=== PATIENT | female | born 1945 | race Caucasian/White ===

== ENCOUNTER 2017-03-17 12:09 | Outpatient (CLI) | payer MEDICARE ==
[2017-03-17 13:21] LABS: Hematocrit 39.6 % (36.0-47.0); Mean Platelet Volume 6.8 fL (7.4-10.4); Red Blood Cell (RBC) Count 4.12 mill/uL (4.20-5.40); White Blood Cell (WBC) Count 5.7 thou/uL (4.8-10.8)
[2017-03-17 13:44] LABS: Anion Gap 10 mmol/L (10-20); BUN (Urea Nitrogen) 29 mg/dL (9.8-20.1); Calc. Creatinine Clearance 0 mL/min (70-130); Calcium 9.2 mg/dL (7.8-10.44); Carbon Dioxide 29 mmol/L (23-31); Chloride 107 mmol/L (98-107); Estimated GFR-MDRD 70
== END 2017-03-17 12:10 | disposition home or self-care (01) ==
LOC: LABBT 12:09
PROVIDERS: ATTEND Orthopaedic Surgery
DX: Z01.818 Encounter for other preprocedural examination (principal); S62.101A Fracture of unspecified carpal bone, right wrist, initial encounter for closed fracture
CPT/HCPCS: 80048; 85027

== ENCOUNTER 2017-03-21 06:13 | Day surgery (SDC) | payer MEDICARE ==
--- NOTE | 2017-03-17 15:43 | HP ---
DATE OF ADMISSION: 03/21/2017 HISTORY OF PRESENT ILLNESS: The patient is a 71-year-old right hand dominant female who fell at [place] on 03/16/2017 injuring her right distal radius. She was evaluated in the emergency room and referred to my office. She was found to have a displaced intra-articular fracture of distal rad ius and is admitted at this time for definitive treatment of the fracture. PAST MEDICAL HISTORY: Please see the old chart. Approximately 5 months ago, the patient underwent k nee arthroscopy and was undergoing physical therapy for this at the time of her injury. She has a hi story of hypertension, sleep apnea, and depression. CURRENT MEDICATIONS: Include aripiprazole, amlodipine, venlafaxine, fluvastatin, Toprol, aspirin, At acand, Crestor, Aciphex, Ranexa, isosorbide dinitrate, meclizine, and p.r.n. hydrocodone. PAST SURGICAL HISTORY: She has had previous laparoscopic banding, cardiac stent surgery. ALLERGIES: She has no known allergies. She lives by herself and is normally quite active. FAMILY HISTORY: Otherwise unremarkable. SOCIAL HISTORY: Otherwise unremarkable. REVIEW OF SYSTEMS: Otherwise unremarkable. PHYSICAL EXAMINATION: GENERAL: Reveals a healthy heavyset female. HEENT: Unremarkable. NECK: Supple. CHEST: Clear. HEART: Regular rate and rhythm. ABDOMEN: Soft, nontender. PELVIC/RECTAL/BREAST: Exams are deferred. EXTREMITIES: Pertinent findings related to the right wrist, there is swelling and tenderness about t he distal radius and mild deformity. SKIN: Intact. NEUROVASCULAR: Exam is intact. X-RAY FINDINGS: X-rays of the right wrist performed in [place] on the day of injury revealed di splaced impacted intraarticular fracture of the right distal radius. IMPRESSION: Displaced intra-articular fracture, right distal radius. PLAN: Open reduction internal fixation with volar locking plate. The nature of the surgery, length of recovery, and potential complications such as infection, loss of motion, incomplete relief, post-t raumatic degenerative arthritis, delayed or nonunion, possible need to remove the implants and need f or additional treatment or repeat surgery have been discussed in detail.
[2017-03-21] MEDS ORDERED: Bupivacaine 0.25% HCL 30 ML VIAL ONE (06:37)
[2017-03-21] MEDS ORDERED: Lidocaine 2% w/Epinephrine 1:200K 20 ML VIAL ONE (06:37)
[2017-03-21] MEDS ORDERED: Bupivacaine/Epinephrine 0.25% 30 ML VIAL ONE (06:38)
[2017-03-21] MEDS ORDERED: CEFAZOLIN/Water 2 GM/20 ML SYRINGE ONE (07:05)
[2017-03-21] MEDS ORDERED: Fentanyl 100 MCG/2 ML VIAL ONE ×2 (08:09→10:08)
[2017-03-21] MEDS ORDERED: Midazolam HCl 2 mg/2 ml Vial ONE ×2 (08:09→09:54)
[2017-03-21] MEDS ORDERED: Dexamethasone 4 mg/ml Vial ONE (08:10)
--- NOTE | 2017-03-21 12:14 | OP ---
DATE OF PROCEDURE: 03/21/2017 SURGEON: Jorge L Zamorano M.D. GLASS CURVATURE GAUGER: Milad Diaz PA-C. ANESTHESIA: IV sedation and supraclavicular block. PREOPERATIVE DIAGNOSIS: Displaced intraarticular fracture, right distal radius. POSTOPERATIVE DIAGNOSIS: Displaced intraarticular fracture, right distal radius. PROCEDURE: Open reduction internal fixation right distal radius with Synthes volar locking plate. NARRATIVE REPORT: After satisfactory anesthesia was induced, in the supine position, the patient was prepped and draped in the routine manner. Right arm was elevated, exsanguinated with an Esmarch ban dage, and the tourniquet inflated to 250 mmHg. A longitudinal incision was made along the volar radi al aspect of the wrist and then slightly zig-zagged over the base of the thenar eminence, carried melissa n to subcutaneous tissues. Bleeding points controlled with Bovie cautery. The sheath of the flexor carpi radialis tendon was split in line with the skin incision and the tendon retracted radially and the floor of the tendon sheath was similarly split. The pronator quadratus was detached subperiostea lly from the distal radius and the fracture exposed. Fracture was manipulated and reduction was chec ked with image intensifier and found to be satisfactory. A Synthes distal radius locking plate was t hen placed on the volar aspect over the distal radius and provisionally fixed with 2 K wires. There appeared to be satisfactory reduction of the fracture and satisfactory plate placement. Provisional fixation of the plate was done through the oblong hole in the middle of the plate with bicortical scr ews after appropriate drilling and depth gauge measurements. Four locking screws were then placed in the distal volar plate and 2 proximal cortical screws were placed in the proximal plate after approp riate drilling and depth gauge measurements. The K-wires were removed. There appeared to be good st able fracture reduction both clinically and by x-ray and C-arm and hard copies were made. The wound was thoroughly irrigated. The pronator quadratus was tacked back in position with 0 Vicryl. Subcuta neous tissues closed with interrupted 0 Vicryl and the skin closed with interrupted 3-0 nylon. A alyson rile bulky compressive dressing was applied and the tourniquet deflated after approximately 48 minute s. The hand promptly pinked up and the patient was immobilized in a volar plaster splint and sling. She was awakened, taken from the operating room in stable condition. There were no apparent intraop erative complications. ESTIMATED BLOOD LOSS: Negligible. The patient will be discharged home in satisfactory condition. Instructed on ice, elevation, and giv en written cast care instructions. She has [place] 10 at home for pain. She will be rechecked in my o ffice in 10-14 days or sooner if there are any problems prior to that time.
--- NOTE | 2017-03-21 12:38 | RAD ---
RIGHT WRIST TWO VIEW: HISTORY: ORIF. COMPARISON: 03/16/2017 FINDINGS: Spot radiographs from the operating room demonstrate satisfactory appearance post fixation of the dis corrina radius fracture. IMPRESSION: Satisfactory alignment post fixation. POS: GET
== END 2017-03-21 13:10 | disposition home or self-care (01) ==
LOC: SDC 06:13
PROVIDERS: ATTEND Orthopaedic Surgery
PROC: 0PSH04Z Reposition Right Radius with Internal Fixation Device, Open Approach (ICD-10-PCS; principal; 2017-03-21)
DX: S52.571A Other intraarticular fracture of lower end of right radius, initial encounter for closed fracture (principal); W19.XXXA Unspecified fall, initial encounter; I10 Essential (primary) hypertension; G47.30 Sleep apnea, unspecified; F32.9 Major depressive disorder, single episode, unspecified; Z79.82 Long term (current) use of aspirin; Z79.899 Other long term (current) drug therapy; Z91.018 Allergy to other foods; Z98.84 Bariatric surgery status; Z98.42 Cataract extraction status, left eye; Z98.41 Cataract extraction status, right eye; Z95.818 Presence of other cardiac implants and grafts; Z98.890 Other specified postprocedural states
CPT/HCPCS: 25608; 73100; 76001; 82962; C1713 ×2; 36416; J1100; J2250; J3010; S0020

== ENCOUNTER 2017-12-06 20:25 | Observation (INO) | payer MEDICARE ==
[2017-12-06 21:40] LABS: Troponin I Less than 0.010 ng/mL (< 0.028)
[2017-12-07] MEDS ORDERED: Isosorbide Dinitrate 20 MG TAB PO SCH (00:15)
[2017-12-07] MEDS ORDERED: Lisinopril 10 MG TAB PO SCH (00:15)
[2017-12-07] MEDS ORDERED: Rosuvastatin 10 MG TAB PO SCH (00:15)
[2017-12-07] MEDS ORDERED: Venlafaxine HCl XR 75 MG CAP PO SCH (00:15)
[2017-12-07] MEDS ORDERED: Ondansetron ODT 4 MG TAB PO PRN (00:40)
[2017-12-07] MEDS ORDERED: Nitroglycerin 0.4 MG TAB (25 Tab Bottle) PO PRN (00:40)
[2017-12-07] MEDS ORDERED: Ondansetron HCl/PF 4 MG/2 ML Vial IVP PRN (00:40)
[2017-12-07] MEDS ORDERED: Calcium Carbonate 500 MG ChewTAB PO PRN (00:40)
[2017-12-07] MEDS ORDERED: Acetaminophen 325 MG TAB PO PRN (00:40)
[2017-12-07] MEDS ORDERED: Mag-Al 1200 mg/1200 mg/30 ML UDCUP PO PRN (00:40)
[2017-12-07] MEDS ORDERED: Senokot 8.6 MG TAB PO PRN (00:40)
[2017-12-07] MEDS ORDERED: Meclizine HCl 25 MG TAB PO PRN (01:04)
--- NOTE | 2017-12-07 03:01 | HP ---
PRIMARY CARE PHYSICIAN: Parrish Mcbride M.D. PRIMARY HUMAN RESOURCES CLERK: Carolina Copeland M.D. CHIEF COMPLAINT: Chest discomfort. HISTORY OF PRESENT ILLNESS: The patient is a 72-year-old female with coronary artery disease who pre sented to the emergency room with chest discomfort that has been going on since yesterday. The chest discomfort started while she was at home resting. It was substernal, pressure-like, without any rad iation. She felt lightheaded, dizzy; however, denies any syncope. She took 2 nitroglycerin after wh ich her pain resolved. She denies any recent immobilization, travel, fever, chills, heartburn, cough , shortness of breath or wheezing. In the emergency room, initial vital signs showed temperature 97.8, respiration 18, pulse rate of 63 with a blood pressure 162/72. O2 saturation was 95% on room air. The patient was seen by Dr. Mcbride as outpatient and was referred to the emergency room for evaluation. PAST MEDICAL HISTORY: 1. Coronary artery disease. 2. Hypertension. 3. Diabetes mellitus type 2, diet controlled. 4. Family history of heart disease. 5. Dyslipidemia. 6. Obstructive sleep apnea. PAST SURGICAL HISTORY: Cardiac catheterization with stent placement. ALLERGIES: No known drug allergies. CURRENT HOME MEDICATIONS: The patient does not remember any of her home medications. Family to get accurate list of medicine in a.m. FAMILY HISTORY: Father of consequences of acute CVA around 60. 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 No alcohol, tobacco, or drug use. She currently lives at home by herself. She makes her own decision with the help of her family. She is FULL CODE. REVIEW OF SYSTEMS: The following complete review of systems was negative, unless otherwise mentioned in the HPI or below: Constitutional: Weight loss or gain, ability to conduct usual activities. Ski n: Rash, itching. Eyes: Double vision, pain. ENT/Mouth: Nose bleeding, neck stiffness, pain, tend erness. Cardiovascular: Palpitations, dyspnea on exertion, orthopnea. Respiratory: Shortness of b reath, wheezing, cough, hemoptysis, fever or night sweats. Gastrointestinal: Poor appetite, abdomin al pain, heartburn, nausea, vomiting, constipation, or diarrhea. Genitourinary: Urgency, frequency, dysuria, nocturia. Musculoskeletal: Pain, swelling. Neurologic/Psychiatric: Anxiety, depression. Allergy/Immunologic: Skin rash, bleeding tendency. PHYSICAL EXAMINATION: VITAL SIGNS: As discussed above. GENERAL: A 72-year-old female in no apparent distress, chest discomfort has resolved. HEENT: Head atraumatic, normocephalic. Sclerae are anicteric. Moist mucous membrane, no oral lesio n. NECK: Supple, no JVD, no carotid bruit. LUNGS: Clear to auscultation bilaterally, no wheezing, rales, or rhonchi. HEART: S1, S2 present. Regular rate and rhythm, no murmur, rubs, or gallops appreciated. ABDOMEN: Soft, nontender, bowel sounds present. EXTREMITIES: No edema or calf tenderness. NEUROLOGIC: Grossly nonfocal, moves all four extremities. PSYCHIATRIC: Alert, awake, oriented x3. SKIN: Warm and dry. LYMPH NODES: No palpable lymph nodes in the neck. PERIPHERAL VASCULAR: Radial pulses palpable bilaterally. MUSCULOSKELETAL: No joint swelling or tenderness. LABORATORY FINDINGS: CBC showed WBC 5.2 with hemoglobin 14.4, hematocrit 45.3, and platelet 169. Ch emistries showed sodium 143, potassium 4.7, chloride 108, bicarb 26, BUN 15, creatinine 0.89. Tropon ins were negative. BNP 84.3. Chest x-ray by my review was negative for infiltrate. EKG by my review showed T-wave inversions in a nterolateral leads with some nonspecific ST-T wave changes in the lateral leads. IMPRESSION: 1. Chest discomfort in a 72-year-old female with coronary artery disease with stent placement in the past. Chest discomfort resolved after nitroglycerin. The patient will be kept n.p.o. past midnight . Cardiology will be consulted in a.m. She will probably require either cardiac catheterization or stress test. 2. Diabetes mellitus type 2, diet controlled. 3. History of coronary artery disease, status post stent placement in the past. We will continue as pirin. We will resume home medications once confirmed. 4. Obstructive sleep apnea. We will resume home CPAP. 5. Hypertension. We will resume her home medications once confirmed. 6. Chronic kidney disease stage 2. Plan of care was discussed with the patient in detail, she stated understanding.
[2017-12-07 04:11] LABS: Troponin I Less than 0.010 ng/mL (< 0.028)
[2017-12-07 05:19] LABS: Troponin I Less than 0.010 ng/mL (< 0.028)
[2017-12-07 05:23] VITALS: BMI 46.2
[2017-12-07] MEDS ORDERED: Eucerin (Mineral Oil/Petrolatum,White) 30 gm Jar TOP PRN (07:14)
[2017-12-07] MEDS ORDERED: Diabetic Tussin 200 MG/10 ML UDCUP PO PRN (07:14)
[2017-12-07] MEDS ORDERED: Loperamide HCl 2 MG CAP PO PRN (07:14)
[2017-12-07] MEDS ORDERED: Temazepam 15 MG CAP PO PRN (07:14)
[2017-12-07] MEDS ORDERED: Loratadine 10 MG TAB PO PRN (07:14)
[2017-12-07] MEDS ORDERED: Chloraseptic Spray 180 ml Bottle PO PRN (07:14)
[2017-12-07] MEDS ORDERED: Artificial Tears 18 DROP/0.9 ML EA EYE PRN (07:14)
[2017-12-07] MEDS ORDERED: hydrALAZINE 20 MG/ML VIAL SLOW IVP PRN (07:14)
[2017-12-07] MEDS ORDERED: Sodium Chloride 0.65% Nasal 44 ML BOT EA NARE PRN (07:14)
[2017-12-07] MEDS ORDERED: Milk Of Magnesia 30 ML UDCUP PO PRN (07:14)
[2017-12-07] MEDS ORDERED: Famotidine 20 MG TAB PO SCH (09:00)
[2017-12-07] MEDS ORDERED: Amlodipine 5 MG TAB PO SCH (09:00)
[2017-12-07] MEDS ORDERED: Docusate 100 MG CAP PO SCH (09:00)
[2017-12-07] MEDS ORDERED: Aspirin 325 mg Enteric Coated Tablet PO SCH (09:00)
--- NOTE | 2017-12-07 11:36 | PDOC.PN ---
- Subjective Encounter Start Date: 12/07/17 Encounter Start Time: 07:50 -: old records requested/rev Patient seen and examined. No new complaints. No overnight events - Objective Resuscitation Status: Resuscitation Status FULL:Full Resuscitation MAR Reviewed: Yes Vital Signs & Weight: Vital Signs (12 hours) Temp Pulse Resp BP BP Pulse Ox 12/07/17 08:00 97.8 F 66 18 12/07/17 07:44 97.8 F 66 18 150/68 H 94 L 12/07/17 04:25 97.7 F 64 16 141/66 H 97 12/07/17 00:55 97.7 F 64 16 139/63 95 Weight Admit Weight 244 lb 8 oz Weight 244 lb 8 oz EKG Reviewed by me: Yes (nsr) Phys Exam - Physical Examination Constitutional: NAD HEENT: PERRLA, moist MMs, sclera anicteric Neck: no JVD, supple Respiratory: no wheezing, no rales, no rhonchi Cardiovascular: RRR, no significant murmur, no rub Gastrointestinal: soft, non-tender, no distention, positive bowel sounds morbid obesity+ Musculoskeletal: no edema, pulses present Neurological: non-focal, normal sensation, moves all 4 limbs Lymphatic: no nodes Psychiatric: normal affect, A&O x 3 Skin: no rash, normal turgor Dx/Plan (1) Chest pain Code(s): R07.9 - CHEST PAIN, UNSPECIFIED Status: Acute Qualifiers: Ischemic chest pain type: other angina pectoris type (2) Anxiety and depression Code(s): F41.9 - ANXIETY DISORDER, UNSPECIFIED; F32.9 - MAJOR DEPRESSIVE DISORDER, SINGLE EPISODE, UNSPECIFIED Status: Chronic (3) CAD (coronary artery disease) Code(s): I25.10 - ATHSCL HEART DISEASE OF [place] CORONARY ARTERY W/O ANG PCTRS Status: Chronic (4) Dyslipidemia Code(s): E78.5 - HYPERLIPIDEMIA, UNSPECIFIED Status: Chronic (5) GERD (gastroesophageal reflux disease) Code(s): K21.9 - GASTRO-ESOPHAGEAL REFLUX DISEASE WITHOUT ESOPHAGITIS Status: Chronic (6) Hypertension Code(s): I10 - ESSENTIAL (PRIMARY) HYPERTENSION Status: Chronic (7) Morbid obesity with BMI of 45.0-49.9, adult Code(s): E66.01 - MORBID (SEVERE) OBESITY DUE TO EXCESS CALORIES; Z68.42 - BODY MASS INDEX (BMI) 45.0-49.9, ADULT Status: Chronic (8) BHARAT (obstructive sleep apnea) Code(s): G47.33 - OBSTRUCTIVE SLEEP APNEA (ADULT) (PEDIATRIC) Status: Chronic - Plan cont current plan of care * currently on medical therapy * cardiology consulted * pt is npo * further investigation will defer to cardiology * medication reviewed as below * symptomatic treatment * discharge based on cardio recommendation. Review of Systems - Review of Systems Eyes: negative: Pain, Vision Change, Conjunctivae Inflammation, Eyelid Inflammation, Redness, Other ENT: negative: Ear Pain, Ear Discharge, Nose Pain, Nose Discharge, Nose Congestion, Mouth Pain, Mouth Swelling, Throat Pain, Throat Swelling, Other Respiratory: negative: Cough, Dry, Shortness of Breath, Hemoptysis, SOB with Excertion, Pleuritic Pain, Sputum, Wheezing Cardiovascular: negative: chest pain, palpitations, orthopnea, paroxysmal nocturnal dyspnea, edema, light headedness, other Gastrointestinal: negative: Nausea, Vomiting, Abdominal Pain, Diarrhea, Constipation, Melena, Hematochezia, Other Genitourinary: negative: Dysuria, Frequency, Incontinence, Hematuria, Retention , Other Musculoskeletal: negative: Neck Pain, Shoulder Pain, Arm Pain, Back Pain, Hand Pain, Leg Pain, Foot Pain, Other Skin: negative: Rash, Lesions, Steven, Bruising, Other - Medications/Allergies Allergies/Adverse Reactions: Allergies Allergy/AdvReac Type Severity Reaction Status Date / Time strawberries Allergy itching Uncoded 03/17/17 12:27 and rash Medications: Current Medications Acetaminophen (Tylenol) 650 mg PO Q4H PRN PRN Reason: Headache/Fever or Pain Al Hydroxide/Mg Hydroxide (Maalox) 30 ml PO Q6H PRN PRN Reason: Heartburn or Indigestion Amlodipine Besylate (Norvasc) 5 mg PO QAM FELICITY Artificial Tears (Tears Naturale) 0 drop EA EYE PRN PRN PRN Reason: Dry Eyes Aspirin (Ecotrin) 325 mg PO DAILY FELICITY Calcium Carbonate (Tums) 1,000 mg PO Q4H PRN PRN Reason: Heartburn or Indigestion Docusate Sodium (Colace) 100 mg PO BID FELICITY Guaifenesin (Robitussin Sf) 200 mg PO Q4H PRN PRN Reason: Cough Hydralazine HCl (Apresoline) 10 mg SLOW IVP Q4H PRN PRN Reason: Systolic BP > 180 Isosorbide Mononitrate (Imdur Er) 30 mg PO BID FELICITY Loperamide HCl (Imodium) 2 mg PO PRN PRN PRN Reason: Diarrhea/Loose Stools Loratadine (Claritin) 10 mg PO DAILYPRN PRN PRN Reason: Sinus Symptoms Magnesium Hydroxide (Milk Of Magnesium) 30 ml PO DAILYPRN PRN PRN Reason: Constipation Meclizine HCl (Antivert) 25 mg PO BIDPRN PRN PRN Reason: Dizziness Metoprolol Succinate (Toprol Xl) 50 mg PO QAM FELICITY Mineral Oil/White Petrolatum (Eucerin Cream) 0 gm TOP BIDPRN PRN PRN Reason: Dry Skin Nitroglycerin (Nitrostat) 0.4 mg PO Q5MIN PRN PRN Reason: Chest Pain Ondansetron HCl (Zofran Odt) 4 mg PO Q6H PRN PRN Reason: Nausea/Vomiting Ondansetron HCl (Zofran) 4 mg IVP Q6H PRN PRN Reason: Nausea/Vomiting Pantoprazole Sodium (Protonix) 40 mg PO BID FELICITY Phenol (Chloraseptic [place] 180 Ml Bot) 0 ml PO PRN PRN PRN Reason: Sore Throat Ranolazine (Ranexa) 500 mg PO BID FELICITY Senna (Senokot) 2 tab PO HSPRN PRN PRN Reason: Constipation Sodium Chloride ([place] Nasal [place] 0.65%) 0 ml EA NARE QIDPRN PRN PRN Reason: Nasal Congestion Sodium Chloride (Flush - Normal Saline) 10 ml IVF Q12HR FELICITY Sodium Chloride (Flush - Normal Saline) 10 ml IVF PRN PRN PRN Reason: Saline Flush Temazepam (Restoril) 15 mg PO HSPRN PRN PRN Reason: Insomnia
[2017-12-07 12:59] VITALS: TEMP 98.1
--- NOTE | 2017-12-07 13:41 | NM ---
MYOCARDIAL PERFUSION SCAN: INDICATIONS: Coronary artery disease. TECHNIQUE: A stress only exam was performed. The patient was administered 27 millicuries of technetium labeled sestamibi. The patient was stressed according to adenosine protocol. FINDINGS: The left ventricle was imaged with SPECT imaging, and CT attenuation images were obtained. There is normal activity throughout the left ventricle. No defect or evidence of ischemia. Wall motion shows normal left ventricular wall motion. The ejection fraction is recorded at 79%. IMPRESSION: Negative stress only sestamibi examination. POS: GET
--- NOTE | 2017-12-07 13:43 | DIS ---
PRIMARY CARE PHYSICIAN: Dr. Parrish Mcbride DATE OF ADMISSION: 12/06/2017 DATE OF DISCHARGE: 12/07/2017 DISCHARGE DISPOSITION: Home. PRIMARY DISCHARGE DIAGNOSIS: Chest pain, ruled out acute coronary syndrome. SECONDARY DISCHARGE DIAGNOSES: Obstructive sleep apnea, morbid obesity with BMI 46, hypertension, ga stroesophageal reflux disease, dyslipidemia, coronary artery disease, anxiety and depression. PRIMARY PROCEDURE/OPERATION: None. RADIOLOGICAL INVESTIGATION: Chest x-ray normal. Stress test negative for any reversible ischemia. SIGNIFICANT LABORATORY DATA: WBC 5.2, hemoglobin 14.4, platelet 169. Sodium 143, potassium 4.7, BUN 15, creatinine 0.89, calcium 10.0. LFT normal. BNP 84.3. Cardiac enzymes negative. DISCHARGE MEDICATIONS: Amlodipine 5 mg p.o. daily, Imdur 30 mg p.o. b.i.d., lisinopril 10 mg p.o. b. i.d., Antivert 25 mg b.i.d. p.r.n., Toprol-XL 50 mg p.o. daily, multivitamin 1 tablet p.o. daily, Aci phex 20 mg p.o. b.i.d., Ranexa 500 mg p.o. b.i.d., Crestor 10 mg p.o. at bedtime, Effexor 75 mg p.o. b.i.d., aspirin 325 mg p.o. daily. CONTRAINDICATIONS: None. CODE STATUS: FULL CODE. INPATIENT CONSULTANTS: Dr. Copeland was consulted while in hospital. TEST RESULTS PENDING ON DISCHARGE: None. ALLERGIES: No known drug allergy. DISCHARGE PLAN: Post hospital, the patient is instructed to follow with primary care physician. HOSPITAL COURSE: A 72-year-old female who came to emergency room with complaint of chest pain. She had chest pain on Tuesday, which was substernal without any radiation, without any associated nausea, vomiting, diaphoresis. The patient took 3 nitroglycerin and chest pain subsided after 1 hour. The p atient was trying to call Cardiology office, but she was not able to reach them and the next day the patient made appointment with primary care physician who advised her to go to the emergency room for evaluation. She had negative cardiac enzymes. Initially, she went to [facility] where she had routine blood test, which was normal. Her EKG was slightly away from her baseline and that i s why patient was sent to our hospital for rule out acute coronary syndrome. Her telemetry remained unremarkable. Cardiology evaluated this patient and they recommended stress test which was normal. The patient is already on optimum medical therapy. The patient is completely chest pain free. The p atient will continue all her previous home medication. The patient is seen and examined at bedside today. Please see my progress note from today for furthe r details. As long as Cardiology is okay, then this patient can be medically stable for discharge [facility] on today.
--- NOTE | 2017-12-07 14:04 | CON ---
DATE OF CONSULTATION: 12/07/2017 DATE OF ADMISSION: 12/06/2017 INDICATIONS FOR CONSULTATION: This is a 72-year-old female with a history of known coronary artery disease, hypertension, obesity, hypercholesterolemia, diabetes. We were asked to see her due to the history of chest pain and problems with her blood pressure recently. HISTORY OF PRESENT ILLNESS: This is a very pleasant 72-year-old female, who has been followed by me for many years. She has had a history of angioplasty and stent placement to the left anterior descending artery. She has had problems with hypertension, hypercholesterolemia, and diabetes for quite some time. She noticed some chest pain on Tuesday in the lower sternal area or in the epigastric area, which she describes as being pressure. She took 3 nitroglycerin and the pain then resolved. She has had no other symptoms. She had no radiation of the pain, no other associated symptoms at the time of the discomfort. She went to see her primary physician. EKG was performed, and there was felt to be some abnormalities, which was actually unchanged from previous EKG 2017 with T-wave inversions in the anterior and lateral leads. She had enzymes obtained in the emergency room in [place], which were unremarkable. She was then transferred to our facility. Enzymes still remain negative. EKG is also unchanged. She continued to have T-wave inversions. At this time, she has had no further chest discomfort and she is actually very very comfortable at this time. She actually had her last stress test a couple of years ago, which did not show any significant ischemia. She has had echocardiograms, which show a normal left ventricular systolic function. Her last carotid study was in 05/2014, which shows some minimal plaque in the right carotid artery with no evidence of disease in the left carotid. Otherwise, she has been doing very stable from a cardiac standpoint and enzymes remain negative. EKG is unchanged, but we will schedule her for stress testing to rule out evidence for underlying ischemia. PAST MEDICAL HISTORY: Significant for the coronary artery disease, angioplasty , and stent placement to the left anterior descending artery. She has also had a history of Lap-Band procedure. She has had benign brain tumor, removed in 2011. She has had cataract surgery. She has osteoarthritis. She has had her second toe of the right foot surgically corrected. She has a history of sleep apnea, obesity, hypercholesterolemia, gastroesophageal reflux disease as well as hypertension and diabetes. ALLERGIES: She has no known drug allergies. MEDICATIONS: Prior to admission included lisinopril 10 mg b.i.d., Aciphex 20 mg b.i.d., nitroglycerin p.r.n. as needed, isosorbide dinitrate 30 mg 1 b.i.d., meclizine 25 mg b.i.d., aspirin 325 mg a day, Effexor 75 mg 1 tablet b.i.d., amlodipine 5 mg every day, Ranexa 500 mg b.i.d., Crestor 10 mg daily, multivitamins, and metoprolol 50 mg daily. REVIEW OF SYSTEMS: She denied any new HEENT complaints, GI, , musculoskeletal , or neurological complaints. She does complain, however, of having increased problems with her depression. Recently, she had been out of her Effexor, and this has now been restarted since she has been here in the hospital. FAMILY HISTORY: Noncontributory. PHYSICAL EXAMINATION: GENERAL: Reveals a middle-aged female or elderly female, who is in no acute distress at this time. VITAL SIGNS: Her blood pressure is 150/68, heart rate 66 and regular. She is afebrile, respiratory rate is 18. HEENT EXAM: Shows the head to be normocephalic and atraumatic. Carotid pulses are present. There were no gross bruits noted. CHEST: Clear to auscultation without rales, rhonchi, or wheezing. CARDIOVASCULAR EXAM: Reveals a regular rate and rhythm with normal S1 and S2. There is no S3 or S4. There were no significant murmurs, heaves, thrills, bruits, or rubs noted. ABDOMINAL EXAM: Shows obesity with positive bowel sounds. No organomegaly or masses are noted. No tenderness noted. EXTREMITIES: Femoral pulses are palpable, but difficult to palpate due to large pannus. Extremities show no clubbing, cyanosis, or edema. Pedal pulses are present. NEUROLOGIC: She appears to be fully intact. There are no gross focal motor deficits noted. SKIN: Warm and dry. LABORATORY DATA: EKG as noted above. Cardiac enzymes are negative. Remainder of laboratory data is unremarkable. IMPRESSION: 1. Elderly female with a history of known coronary disease, who complains of chest pain and has abnormal EKG changes. She has not had a recent stress test in several years.She had a cardiac cath within the last 2 years and the stent in the LAD was widely patent. A diagonal branch was 50-75% stenosed.not a vessel for intervention. We will plan for a stress test today. If there is any abnormality, she will need to undergo repeat cardiac catheterization. Otherwise, her episode of chest discomfort may have been due to GI in nature since she does have a history of reflux. 2. History of diabetes. This will be dealt with by the primary care service. 3. History of hypercholesterolemia. She will continue on her statin medications. We will continue to follow this. Otherwise, she remains relatively stable at this time. 4. History of multiple episodes of chest discomfort in the past. She has been on Ranexa and this has seemed to help her problem in the past, and with the stress test, we will determine whether or not there is any evidence of ischemia , and if so, she will need to undergo further evaluation. 5. History of depression. She has been restarted on her medications, and hopefully, we will continue this and see whether or not this will improve some of her overall symptoms. LINDA
[2017-12-07] MEDS ORDERED: ADENOSINE 60 MG/20 ML VIAL ONE (14:41)
[2017-12-07 16:44] VITALS: BP 163/72
== END 2017-12-07 18:10 | disposition home or self-care (01) ==
LOC: ERS 20:25 → 2SW 22:40
PROVIDERS: ADMIT Internal Medicine; ATTEND Internal Medicine
DX: R07.89 Other chest pain (principal); I25.10 Atherosclerotic heart disease of native coronary artery without angina pectoris; E78.5 Hyperlipidemia, unspecified; G47.33 Obstructive sleep apnea (adult) (pediatric); I12.9 Hypertensive chronic kidney disease with stage 1 through stage 4 chronic kidney disease, or unspecified chronic kidney disease; E11.22 Type 2 diabetes mellitus with diabetic chronic kidney disease; N18.2 Chronic kidney disease, stage 2 (mild); E78.00 Pure hypercholesterolemia, unspecified; M19.90 Unspecified osteoarthritis, unspecified site; K21.9 Gastro-esophageal reflux disease without esophagitis; F41.8 Other specified anxiety disorders; E66.01 Morbid (severe) obesity due to excess calories; Z68.42 Body mass index [BMI] 45.0-49.9, adult; Z79.899 Other long term (current) drug therapy; Z91.018 Allergy to other foods; Z95.5 Presence of coronary angioplasty implant and graft; Z98.84 Bariatric surgery status
CPT/HCPCS: 78452; 82962; 84484 ×3; 93005; 93017; 94760; 99285; A9500; G0378 ×2; 36415; 36416; A4216; J0153

== ENCOUNTER 2018-06-11 17:49 | Inpatient (IN) | payer MEDICARE ==
[~2018-06-11 17:49] MED LIST: ISOVUE-370 76%-LOCM 1 ML ONE
--- NOTE | 2018-06-11 18:24 | RAD ---
CHEST ONE VIEW: History: Chest pain, shortness of breath. Comparison: 12-06-17 FINDINGS: Heart size is enlarged. Mild edema. Small effusions. No pneumothorax. Moderate degenerative changes both acromioclavicular joints. IMPRESSION: Findings suggesting mild congestive heart failure. POS: [facility]
[2018-06-11 18:25] LABS: Actual Bicarbonate (HCO3a) 20.8 mEq/L (22-28); Analyzer IN Cardio ER; Base Excess (BEa) -1.9 mEq/L (-2.0 to +3.0); CO2 Tension 29.8 mmHg (35.0-45.0); Calcium, Ionized 1.17 mmol/L (1.12-1.30); Carboxyhemoglobin (COHb) 0.6 gm% (0.0-3.0); Hemoglobin (Hb) 13.5 g/dL (12.0-16.0); O2 Tension (PaO2) 75.7 mmHg (> 70.0); Potassium - ABG Lab 3.27 mmol/L (3.70-5.30); pH, Arterial 7.46 (7.35-7.45)
[2018-06-11 18:28] LABS: Puncture Site RBA
[2018-06-11] MEDS ORDERED: Dexamethasone 10 MG/ML VIAL ONE (18:32)
[2018-06-11 18:40] LABS: #Eosinphils 0.1 thou/uL (0.0-0.7); #Monocytes 0.9 thou/uL (0.11-0.59); %Basophils 0.3 % (0.0-1.0); %Eosinophils 0.8 % (0.0-10.0); %Lymphocytes 10.2 % (21.0-51.0); %Monocytes 9.1 % (0.0-10.0); %Neutrophils 79.7 % (42.0-75.0); Hemoglobin 13.2 g/dL (12.0-16.0); Mean Corpuscular HGB CONC 33.3 g/dL (32.0-36.0); Mean Corpuscular Hemoglobin 32.7 pg (27.0-31.0); Mean Corpuscular Volume 98.1 fL (78.0-98.0); Mean Platelet Volume 7.3 fL (7.4-10.4); Platelet Count 138 thou/uL (130-400); RBC Distribution Width 12.5 % (11.5-14.5); Red Blood Cell (RBC) Count 4.03 mill/uL (4.20-5.40)
[2018-06-11 19:01] LABS: ALT (SGPT) 24 U/L (8-55); AST (SGOT) 18 U/L (5-34); Albumin 3.9 g/dL (3.4-4.8); Alkaline Phosphatase 60 U/L (40-150); Anion Gap 16 mmol/L (10-20); BUN (Urea Nitrogen) 14 mg/dL (9.8-20.1); Bilirubin, Total 1.2 mg/dL (0.2-1.2); CK (CPK) 101 U/L (29-168); Calc. Creatinine Clearance 0 mL/min (70-130); Calcium 9.3 mg/dL (7.8-10.44); Carbon Dioxide 17 mmol/L (23-31); Chloride 107 mmol/L (98-107); Estimated GFR-MDRD 73; Globulin 2.8 g/dL (2.4-3.5); Glucose 97 mg/dL (83-110); Lipase 6 U/L (8-78); Potassium 3.4 mmol/L (3.5-5.1); Protein, Total 6.7 g/dL (6.0-8.3); Sodium 137 mmol/L (136-145)
--- NOTE | 2018-06-11 20:21 | CT ---
CT ANGIOGRAM CHEST WITH CONTRAST: History: Chest pain. Comparison: Radiograph same day. FINDINGS: CT angiogram chest performed after the intravenous administration of contrast. 3D rendering provided. FINDINGS: There are mildly prominent paratracheal lymph nodes. There is a pretracheal lymph node measuring 15 m m in short axis, axial image 32. There is mild confluent right perihilar adenopathy. Pulmonary trunk size is normal. No proximal segmental pulmonary arterial filling defect. There is elevation of the ri ght hemidiaphragm. No pericardial effusion. There is a small sliding hiatal hernia. The lap band is in place. There is c holelithiasis. Abnormal airspace opacities in the right lung base. There is also a nodule within the right upper lob e measuring 11 mm which is not completely solid. There are some airspace opacities within the right u pper lobe. There are a few central airspace opacities in the lingula and left lower lobe. Atelectatic change in the right upper lobe. No acute displaced rib fracture. Sternum and manubrium are intact. No thoracic spine compression frac ture. IMPRESSION: 1. Multifocal right worse than left central airspace opacities with a dominant 13 mm nodule which is part solid in the right upper lobe. There are also a few central alveolar opacities in the left lung. Findings favor multifocal bronchial pneumonia over pulmonary edema. 2. No proximal segmental pulmonary arterial filling defect. 3. Follow up CT of the chest is recommended after treatment within one month to evaluate for resoluti on of the central nodules and to evaluate mediastinal adenopathy for reactive changes. POS: [facility]
[2018-06-11] MEDS ORDERED: Sodium Chloride 0.9% 1,000 ML IV SCH (21:00)
[2018-06-11 23:04] VITALS: BMI 49.4
[2018-06-11] MEDS: Sodium Chloride 0.9% 1,000 ML IV SCH (23:49)
--- NOTE | 2018-06-12 01:56 | HP ---
CHIEF COMPLAINT: Shortness of breath since yesterday. HISTORY OF PRESENT ILLNESS: She is a 72-year-old woman with a history of bypass , status post stent; meningioma treated with Gamma Knife; lap-band; and stent placement. She came to the ER because having some shortness of breath for the last few days. When she came to the ER, her vital signs; pulse 98, blood pressure 177/110, respiratory rate 24, and temperature 98.9. She was given nebulizer in the ER and her chest x-ray shows multifocal pneumonia. She admitted to the ER with multifocal pneumonia. PAST MEDICAL HISTORY: She has cardiac history, stent placement, bypass; type 2 diabetes; hypertension; hyperlipidemia; meningioma, and treated with Gamma Knife. PAST SURGICAL HISTORY: She had lap-band, angioplasty, cardiac surgery, and hernia repair. SOCIAL HISTORY: She denies alcohol or drug use. MEDICATIONS: She is taking at home: 1. Aspirin. 2. Effient. 3. Amlodipine. 4. Lisinopril. Family history: non contributory REVIEW OF SYSTEMS: CONSTITUTIONAL: She does have fever. No chills. EYES: No discharge. No photophobia. ENT: No epistaxis. CARDIOVASCULAR: No chest pain. No syncope. RESPIRATORY: She has some cough and shortness of breath. No wheezing. GI: No diarrhea. No constipation. No nausea. No vomiting. MUSCULOSKELETAL: No joint pain. No myalgia. SKIN: No rash. NEUROLOGIC: No focal weakness. PHYSICAL EXAMINATION: GENERAL: When I saw her, she is an elderly woman, lying in the bed, not in any distress. VITAL SIGNS: Pulse 98, blood pressure 144/88, respiratory rate 20, and temperature 98.4. HEENT: Head is atraumatic and normocephalic. Pupils are round and reactive. Extraocular movements are intact. Ears, nose, and throat are normal. Tongue, mucosa moist. NECK: Supple. No JVD. No carotid bruits. Trachea is midline. CHEST: Diminished breath sounds. Occasional rhonchi noted at the bases with crackles. No accessory muscles working. CVS: S1 and S2 are audible. No S3 or S4. No murmur. ABDOMEN: Soft. Bowel sounds are audible. No organomegaly. EXTREMITIES: +2 pedal edema. MACHINIST HELPER: Alert x3, no focal deficit. DIAGNOSTIC DATA: Chest x-ray showed bilateral infiltrates, pneumonia. LABORATORY DATA: WBC of 10.0, hemoglobin 13.2, hematocrit 39.5, MCV 98.1, and platelets 138. Chemistry shows sodium of 137, potassium 3.4, chloride 107, carbon dioxide 17, BUN 14, and creatinine 0.77. Lactic acid 1.5. AST 18 and ALT 24. Creatine kinase 101. total protein 6.7, albumin 3.9, globulin 2.8, lipase 6. Blood gas; pH of 7.46, pCO2 of 29.8, pO2 of 76, and bicarb 20. ASSESSMENT AND PLAN: 1. Multifocal bilateral pneumonia. Continue IV Levaquin, nebulizer, and blood culture x2. 2. History of coronary artery disease, elevated BNP, possible congestive heart failure. Continue IV Lasix 40 mg twice daily. Get an echocardiogram to assess systolic and diastolic dysfunction. 3. History of coronary artery disease, status post stent. Continue aspirin and Effient. 4. Thrombocytopenia, mild. We will monitor. 5. Hypokalemia. We will replace. 6. Deep venous thrombosis prophylaxis, Lovenox. 7. Code status, full code. Job ID: [id number] [facility]
[2018-06-12] MEDS: Enoxaparin Sodium 40 MG/0.4 ML SYRINGE SC SCH (08:29)
[2018-06-12] MEDS: Sodium Chloride 0.9% 1,000 ML IV SCH (11:09)
[2018-06-12] MEDS ORDERED: methylPREDNISolone Sod Succ 40 MG VIAL IVP SCH (12:45)
--- NOTE | 2018-06-12 15:04 | PDOC.PN ---
- Subjective Encounter Start Date: 06/12/18 Encounter Start Time: 10:30 Subjective: pt up in bed feels sob - Objective Resuscitation Status - Order Detail: 06/11/18 20:52 Resuscitation Status Routine Resuscitation Status: FULL: Full Resuscitation Discussed with: patient Vital Signs & Weight: Vital Signs (12 hours) Temp Pulse Resp BP Pulse Ox 06/12/18 14:48 91 16 98 06/12/18 11:22 98.2 F 89 16 128/82 93 L 06/12/18 08:00 90 L 06/12/18 07:44 97.9 F 83 18 145/84 H 90 L 06/12/18 05:18 97.9 F 79 21 H 140/77 94 L Weight Weight 244 lb 6.4 oz Result Diagrams: 06/11/18 18:31 06/11/18 18:31 Additional Labs: Accuchecks 06/12/18 06/12/18 13:16 05:23 POC Glucose 126 H 140 H Phys Exam - Physical Examination Neck: no nodes, no JVD, supple, full ROM Respiratory: wheezing present Cardiovascular: RRR, no significant murmur, no rub, gallop, irregular Gastrointestinal: soft, non-tender, no distention, positive bowel sounds Musculoskeletal: no edema, pulses present, edema present Dx/Plan (1) Acute respiratory failure with hypoxia Code(s): J96.01 - ACUTE RESPIRATORY FAILURE WITH HYPOXIA Status: Acute (2) Pneumonia Code(s): J18.9 - PNEUMONIA, UNSPECIFIED ORGANISM Status: Acute - Plan will get echo from cardio office -: will add steroids and duonebs -: continue abx * . Review of Systems - Review of Systems Respiratory: Shortness of Breath Cardiovascular: negative: chest pain, palpitations, orthopnea, paroxysmal nocturnal dyspnea, edema, light headedness, other Gastrointestinal: negative: Nausea, Vomiting, Abdominal Pain, Diarrhea, Constipation, Melena, Hematochezia, Other Genitourinary: negative: Dysuria, Frequency, Incontinence, Hematuria, Retention , Other - Medications/Allergies Allergies/Adverse Reactions: Allergies Allergy/AdvReac Type Severity Reaction Status Date / Time strawberries Allergy itching Uncoded 03/17/17 12:27 and rash Medications: Current Medications Albuterol/Ipratropium (Duoneb) 3 ml NEB [id number] FELICITY Last Admin: 06/12/18 14:48 Dose: 3 ml Aspirin (Aspirin Chewable) 81 mg PO DAILY [facility] Enoxaparin Sodium (Lovenox) 40 mg SC 0900 [facility] Last Admin: 06/12/18 08:29 Dose: 40 mg Levofloxacin 750 mg/ Device 150 mls @ 100 mls/hr IVPB Q24HR [facility] Lisinopril (Zestril) 10 mg PO BID [facility] Methylprednisolone Sodium Succinate (Solu-Medrol) 40 mg IVP DAILY [facility] Ranolazine (Ranexa) 500 mg PO BID [facility] Rosuvastatin Calcium (Crestor) 10 mg PO HS [facility] Sodium Chloride (Flush - Normal Saline) 10 ml IVF Q12HR [facility] Last Admin: 06/12/18 08:30 Dose: 10 ml Sodium Chloride (Flush - Normal Saline) 10 ml IVF PRN PRN PRN Reason: Saline Flush Sterile Water (Bacteriostatic Water) 1 ml FS DAILY [facility] Venlafaxine HCl (Effexor) 75 mg PO BID FELICITY
[2018-06-12] MEDS: Lisinopril 10 MG TAB PO SCH (20:21)
[2018-06-12] MEDS: Rosuvastatin 10 MG TAB PO SCH (20:21)
[2018-06-13] MEDS: Aspirin Chewable 81 MG TAB PO SCH (08:26)
[2018-06-13] MEDS: Enoxaparin Sodium 40 MG/0.4 ML SYRINGE SC SCH (08:26)
[2018-06-13] MEDS: Lisinopril 10 MG TAB PO SCH ×2 (08:27→20:25)
[2018-06-13] MEDS: methylPREDNISolone Sod Succ 40 MG VIAL IVP SCH (08:29)
[2018-06-13] MEDS: Bacteriostatic Water 30 ML VIAL FS SCH (08:29)
[2018-06-13] MEDS ORDERED: ISOSORBIDE DINITRATE 30 MG PO SCH (09:00)
[2018-06-13] MEDS: Isosorbide Dinitrate 20 MG TAB PO SCH ×2 (09:02→20:26)
[2018-06-13 09:11] LABS: Anion Gap 12 mmol/L (10-20); BUN (Urea Nitrogen) 22 mg/dL (9.8-20.1); CK (CPK) 154 U/L (29-168); Calc. Creatinine Clearance 105 mL/min (70-130); Calcium 9.4 mg/dL (7.8-10.44); Carbon Dioxide 20 mmol/L (23-31); Chloride 111 mmol/L (98-107); Estimated GFR-MDRD 68; Glucose 179 mg/dL (83-110); Magnesium 2.1 mg/dL (1.6-2.6); Potassium 3.1 mmol/L (3.5-5.1); Sodium 140 mmol/L (136-145)
[2018-06-13 09:15] LABS: CKMB 2.2 ng/mL (0-6.6)
[2018-06-13] MEDS ORDERED: Diltiazem 125 MG in Sodium Chloride 0.9% 100 ML IVPB SCH ×2 (10:30→15:20)
[2018-06-13] MEDS ORDERED: Potassium Chloride 20 MEQ TAB PO SCH ×2 (10:30→15:45)
[2018-06-13] MEDS: Ipratropium Bromide 2.5 ml Neb NEB SCH ×4 (10:49→22:03)
[2018-06-13 13:20] LABS: Troponin I Less than 0.010 ng/mL (< 0.028)
--- NOTE | 2018-06-13 14:13 | PQF ---
NAEL FERNANDEZ JORGE L LONDON [id number] CLINICAL DOCUMENTATION IMPROVEMENT CLARIFICATION FORM: ICD-10 Updated PLEASE DO AN ADDENDUM TO THE PROGRESS NOTE WITH ANY DOCUMENTATION UPDATES OR ADDITIONS AND CARRY THROUGH TO DC SUMMARY. THANK YOU. DATE: 06/13/2018 ATTN: DR. JAMES Please exercise your independent, professional judgment in responding to the clarification form. Clinical indicators are provided on the bottom of this form for your review Please check appropriate box(s): BMI > 40 with associated diagnosis of: (check one) [ x ] Morbid (Severe) Obesity [ ] Due to excess calories [ ] with Alveolar Hypoventilation (Pickwickian syndrome) [ ] Overweight [ ] Obesity [ ] Other diagnosis [ ] Unable to determine For continuity of documentation, please document condition throughout progress notes and discharge summary. Thank You. BMI < 19 Under weight 19 - 24.9 Healthy 25.0 - 29.9 Slightly Overweight 30.0 - 34.9 Obese 35.0 - 39.9 Severely Obese 40.0 and Over Morbidly Obese CLINICAL INDICATORS - SIGNS / SYMPTOMS / LABS 06/11-NN: BMI of 49.9; HT: 4'11" and WT: 244-lbs. RISK FACTORS 06/12-H&P: Hx of Lap Band. TREATMENTS Heart Healthy Diet ordered. Thank you, Trini (This form is maintained as a part of the permanent medical record) 2014 [employer] All Rights Reserved Trini Land RN, CDIS [email or web address] [phone] [facility]
[2018-06-13] MEDS ORDERED: Digoxin 0.5 MG/2 ML AMP ONE (15:27)
[2018-06-13] MEDS ORDERED: Furosemide 40 MG/4 ML VIAL SLOW IVP SCH (15:45)
[2018-06-13] MEDS ORDERED: Digoxin 0.5 MG/2 ML AMP SLOW IVP SCH (15:45)
--- NOTE | 2018-06-13 16:10 | CON ---
DATE OF CONSULTATION: 06/13/2018 PRIMARY GLASS CUTTING MACHINE FEEDER: Carolina Copeland MD REASON FOR CONSULTATION: Atrial fibrillation with RVR. HISTORY OF PRESENT ILLNESS: Ms. Esquivel is a pleasant 72-year-old white female, who comes to the hospital for shortness of breath. She was diagnosed with bilateral pneumonia. She has been having coughing productive of yellowish whitish sputum and subjective fevers. She was found to be in atrial fibrillation with RVR, so she was admitted for this and Cardiology is being consulted. She was started on diltiazem drip currently at 10 mg/hour. PAST MEDICAL AND SURGICAL HISTORY: 1. Coronary artery disease. 2. Type 2 diabetes. 3. Hypertension. 4. Hyperlipidemia. 5. Meningioma. 6. Lap band procedure. 7. Cataract surgery. 8. Osteoarthritis. 9. Second toe of the right foot surgically corrected. 10. Sleep apnea. 11. Obesity. 12. GERD. OUTPATIENT MEDICATIONS: Include: 1. Amlodipine 5 mg a day. 2. Imdur 30 mg b.i.d. 3. Eliquis 5 mg b.i.d. 4. Metoprolol succinate 100 mg q.a.m. 5. Ranexa 1000 mg p.o. b.i.d. 6. AcipHex 20 mg a day. 7. Effexor 75 mg b.i.d. 8. Crestor 10 mg at bedtime. 9. Multivitamin daily. 10. Meclizine. 11. Lisinopril 10 mg b.i.d. 12. Aspirin 81 a day. ALLERGIES: STRAWBERRIES. NO KNOWN DRUG ALLERGIES. SOCIAL HISTORY: No alcohol, tobacco, or drugs. FAMILY HISTORY: Noncontributory. REVIEW OF SYSTEMS: A 12-point review of systems was done, and was found to be negative unless stated in the history of present illness. PHYSICAL EXAMINATION: VITAL SIGNS: Temperature highest has been 99.7, heart rate in the 130s, blood pressure 145/104, respiratory rate 25, and saturating 99% on 3 L. GENERAL: Awake, alert, and oriented x3, in no distress. HEENT: Normocephalic and atraumatic. NECK: Supple. LUNGS: Wheezes and she starts coughing with any breath other than just shallow breath. CARDIOVASCULAR: S1 and S2. Irregularly irregular heart rate in the 130s. ABDOMEN: Soft. Positive bowel sounds. EXTREMITIES: Trace edema. SKIN: Warm and dry. LABORATORY DATA: Laboratory work was reviewed. CBC with a white count of 10, hemoglobin of 13, hematocrit 39, platelet count of 138. ABG was reviewed. Chemistries were reviewed. Potassium has been low since admission, currently at 3.4. BNP was 313. Troponins are negative x3. DIAGNOSTIC DATA: EKG was reviewed, atrial fibrillation with RVR. Telemetry was reviewed, atrial fibrillation with RVR. ASSESSMENT AND PLAN: 1. Atrial fibrillation with rapid ventricular response, paroxysmal. She has been diagnosed with this in the past on Eliquis for stroke prophylaxis. 2. Bilateral pneumonia. 3. Acute on chronic diastolic heart failure. PLAN: 1. We will give 1 dose of IV Lasix. 2. We will try to slow her down some more with increasing the diltiazem drip to 15 and give her 1 dose of IV digoxin. 3. We will replace her potassium as well as already been replaced, but if we are going to give her 1 extra dose of Lasix today, she is going to get more hypokalemic, so we will prevent this. 4. Further recommendations per Dr. Copeland, her primary stone rougher. We will follow up in the morning. Job ID: [id number]
[2018-06-13] MEDS ORDERED: Labetalol HCl 100 MG/20 ML VIAL SLOW IVP PRN (16:45)
[2018-06-13 17:58] LABS: Troponin I Less than 0.010 ng/mL (< 0.028)
[2018-06-13] MEDS: Rosuvastatin 10 MG TAB PO SCH (20:25)
[2018-06-13] MEDS: Apixaban 5 MG TAB PO SCH (20:26)
[2018-06-13] MEDS: Amiodarone 450 MG, Admixture Fee 1 EACH in Dextrose 5% in Water 250 ML IVPB SCH (20:28)
--- NOTE | 2018-06-13 23:12 | CON ---
DATE OF CONSULTATION: 06/13/2018 CONSULTING PHYSICIAN: VERNON. REASON FOR CONSULTATION: Mandatory consultation for respiratory failure. HISTORY OF PRESENT ILLNESS: This is a 72-year-old female, who came to the hospital with cough, shortness of breath, and productive yellow sputum since Tuesday. She has just returned from a [place] cruise. She was found to be in atrial fibrillation with rapid ventricular response. She is currently on a Cardizem drip at 15 mg/hr. Despite that, she was experiencing shortness of breath to the point where she has had to be placed on BiPAP and she is now more comfortable on that. PAST MEDICAL HISTORY: 1. Coronary artery disease. 2. Diabetes mellitus type 2. 3. Hypertension. 4. Hyperlipidemia. 5. BHARAT, followed by Dr. Daiely for that. 6. Meningioma. 7. Obesity. 8. Cataracts. 9. Osteoarthritis. 10. Gastroesophageal reflux. PAST SURGICAL HISTORY: 1. Lap-Band. 2. Cataract surgery. 3. Second toe surgery. MEDICATIONS: Prior to admission, 1. Amlodipine. 2. Imdur. 3. Eliquis. 4. Metoprolol. 5. Ranexa. 6. AcipHex. 7. Effexor. 8. Crestor. 9. Multivitamin. 10. Meclizine. 11. Lisinopril. 12. Aspirin, doses listed on chart. Current inpatient medications; 1. Eliquis. 2. Aspirin. 3. Lanoxin. 4. Diltiazem drip. 5. Furosemide. 6. Ativan. 7. Isordil. 8. Levaquin. 9. Lisinopril. 10. Methylprednisolone. 11. Metoprolol. 12. Potassium. 13. Ranexa. 14. Crestor. 15. Effexor-dose is listed on chart. SOCIAL HISTORY: Nonsmoker. Does not consume alcohol. Does not use illicit drugs. FAMILY HISTORY: Unremarkable. ALLERGIES: STRAWBERRIES. PHYSICAL EXAMINATION: VITAL SIGNS: Temperature 98.7, pulse 143, respirations in the 20s on BiPAP, O2 saturation 98%, blood pressure running as high as 180/110. GENERAL: The patient is awake, talkative through the BiPAP mask, does not appear to be in any distress currently. HEENT: Unremarkable. NECK: No JVD. LUNGS: She has harsh inspiratory crackles at both bases. Some expiratory wheezing present. CARDIAC: S1 and S2. Irregularly irregular. Tachycardic. ABDOMEN: Soft, obese, nontender, and nondistended. EXTREMITIES: No edema. LABORATORY DATA: White blood cell count 10, hematocrit 39, platelet count 138. PH 7.46, pCO2 of 30, and pO2 of 77, that was on 2 L. Sodium 140, potassium 3.1, chloride 111, CO2 of 20, BUN 22, creatinine 0.8, glucose 179. X-ray shows pulmonary vascular congestion, cephalization of flow, maybe blunting of both costophrenic angles. ASSESSMENT: 1. Pneumonia versus asthmatic bronchitis. 2. Congestive heart failure. 3. Atrial fibrillation with rapid ventricular response. PLAN: 1. I agree with diuretics. 2. I agree with empiric antibiotics and steroids. 3. Nebulization treatments. 4. BiPAP as tolerated. 5. We will follow. Job ID: [id number]
[2018-06-14] MEDS: Ipratropium Bromide 2.5 ml Neb NEB SCH ×6 (02:37→22:18)
--- NOTE | 2018-06-14 05:00 | PDOC.PN ---
- Subjective Encounter Start Date: 06/13/18 Encounter Start Time: 10:00 Subjective: nurse called pt was found to be tachycardiac. Pt asytomatic. will get ekg -: and transfer her to tele - Objective Resuscitation Status - Order Detail: 06/11/18 20:52 Resuscitation Status Routine Resuscitation Status: FULL: Full Resuscitation Discussed with: patient Vital Signs & Weight: Vital Signs (12 hours) Temp Pulse Resp Pulse Ox 06/14/18 04:23 98.4 F 06/14/18 04:03 22 H 06/14/18 02:38 126 H 35 H 99 06/14/18 00:00 98.0 F 06/13/18 22:03 133 H 28 H 97 06/13/18 20:00 99.2 F 06/13/18 17:31 143 H Weight Weight 244 lb 6.4 oz Most Recent Monitor Data Heart Rate from ECG 127 NIBP 145/95 NIBP BP-Mean 111 Respiration from ECG 24 SpO2 100 I&O: 06/12/18 06/13/18 06/14/18 06:59 06:59 06:59 Intake Total 1640 Balance 1640 Result Diagrams: 06/11/18 18:31 06/13/18 08:40 Additional Labs: Accuchecks 06/13/18 06/13/18 06/13/18 20:31 17:07 12:48 POC Glucose 166 H 134 H 138 H 06/13/18 05:43 POC Glucose 128 H Phys Exam - Physical Examination Neck: no nodes, no JVD, supple, full ROM Respiratory: wheezing present Cardiovascular: irregular tachycardia Gastrointestinal: soft, non-tender, no distention, positive bowel sounds Musculoskeletal: no edema, pulses present, edema present Dx/Plan (1) Acute respiratory failure with hypoxia Code(s): J96.01 - ACUTE RESPIRATORY FAILURE WITH HYPOXIA Status: Acute (2) Pneumonia Code(s): J18.9 - PNEUMONIA, UNSPECIFIED ORGANISM Status: Acute (3) Atrial fibrillation with RVR Code(s): I48.91 - UNSPECIFIED ATRIAL FIBRILLATION Status: Acute - Plan will start pt on cardizem drip, will consult cardio. -: pt's chadvasc score is 3-4 will start on AC -: will conitnue abx and steroids -: pt does appear anxious * . Review of Systems - Review of Systems Respiratory: Shortness of Breath Cardiovascular: negative: chest pain, palpitations, orthopnea, paroxysmal nocturnal dyspnea, edema, light headedness, other Gastrointestinal: negative: Nausea, Vomiting, Abdominal Pain, Diarrhea, Constipation, Melena, Hematochezia, Other Genitourinary: negative: Dysuria, Frequency, Incontinence, Hematuria, Retention , Other - Medications/Allergies Allergies/Adverse Reactions: Allergies Allergy/AdvReac Type Severity Reaction Status Date / Time strawberries Allergy itching Uncoded 03/17/17 12:27 and rash Medications: Current Medications Apixaban (Eliquis) 5 mg PO BID [facility] Last Admin: 06/13/18 20:26 Dose: 5 mg Aspirin (Aspirin Chewable) 81 mg PO DAILY [facility] Last Admin: 06/13/18 08:26 Dose: 81 mg Levofloxacin 750 mg/ Device 150 mls @ 100 mls/hr IVPB Q24HR [facility] Last Admin: 06/13/18 21:58 Dose: 150 mls Diltiazem HCl 125 mg/ Sodium (Chloride) 125 mls @ 15 mls/hr IVPB INF [facility]; Protocol Last Admin: 06/14/18 00:08 Dose: 125 mls Amiodarone HCl 450 mg/Miscellaneous Medication 1 each/ Dextrose/Water 259 mls @ 0 mls/hr IVPB INF [facility]; Protocol Last Admin: 06/13/18 20:28 Dose: 259 mls Ipratropium [place] (Atrovent) 2.5 ml NEB [id number] [facility] Last Admin: 06/14/18 02:37 Dose: 2.5 ml Isosorbide Dinitrate (Isordil) 30 mg PO BID [facility] Last Admin: 06/13/18 20:26 Dose: 30 mg Labetalol HCl (Labetalol Hcl) 20 mg SLOW IVP Q2H PRN PRN Reason: SBP GREATER THAN 160 Lisinopril (Zestril) 10 mg PO BID [facility] Last Admin: 06/13/18 20:25 Dose: 10 mg Methylprednisolone Sodium Succinate (Solu-Medrol) 40 mg IVP DAILY [facility] Last Admin: 06/13/18 08:29 Dose: 40 mg Metoprolol Succinate (Toprol Xl) 100 mg PO DAILY [facility] Last Admin: 06/13/18 09:02 Dose: 100 mg Ranolazine (Ranexa) 500 mg PO BID [facility] Last Admin: 06/13/18 20:26 Dose: 500 mg Rosuvastatin Calcium (Crestor) 10 mg PO HS [facility] Last Admin: 06/13/18 20:25 Dose: 10 mg Sodium Chloride (Flush - Normal Saline) 10 ml IVF Q12HR [facility] Last Admin: 06/13/18 20:26 Dose: 10 ml Sodium Chloride (Flush - Normal Saline) 10 ml IVF PRN PRN PRN Reason: Saline Flush Sterile Water (Bacteriostatic Water) 1 ml FS DAILY [facility] Last Admin: 06/13/18 08:29 Dose: 1 ml Venlafaxine HCl (Effexor) 75 mg PO BID [facility] Last Admin: 06/13/18 20:26 Dose: 75 mg
[2018-06-14] MEDS: Amiodarone 450 MG, Admixture Fee 1 EACH in Dextrose 5% in Water 250 ML IVPB SCH ×2 (06:21→22:12)
[2018-06-14] MEDS ORDERED: Metoprolol Tartrate 5 MG/5 ML VIAL IVP SCH (08:03)
[2018-06-14] MEDS ORDERED: Metoprolol Tartrate 5 MG/5 ML VIAL ONE (08:05)
[2018-06-14] MEDS ORDERED: Digoxin 0.5 MG/2 ML AMP ONE (08:09)
[2018-06-14] MEDS ORDERED: Digoxin 0.5 MG/2 ML AMP SLOW IVP SCH (08:15)
[2018-06-14] MEDS: Apixaban 5 MG TAB PO SCH ×2 (08:42→20:44)
[2018-06-14] MEDS: Isosorbide Dinitrate 20 MG TAB PO SCH ×2 (08:43→20:44)
[2018-06-14] MEDS: Lisinopril 10 MG TAB PO SCH (08:43)
[2018-06-14] MEDS: Aspirin Chewable 81 MG TAB PO SCH (08:43)
[2018-06-14] MEDS: Bacteriostatic Water 30 ML VIAL FS SCH (08:46)
[2018-06-14] MEDS: methylPREDNISolone Sod Succ 40 MG VIAL IVP SCH (08:46)
--- NOTE | 2018-06-14 09:15 | PRG ---
DATE OF SERVICE: SUBJECTIVE: This morning, she is better. She is coughing some grossly purulent sputum. OBJECTIVE: VITAL SIGNS: Temperature is 98, pulse 139, respiratory rate , and blood pressure 156/125. Denies difficulty breathing. CHEST: Decreased breath sounds. Minimal crackles. No wheezing. CARDIAC: Normal S1 and S2. No gallops. ABDOMEN: No masses. IMAGING STUDIES: X-ray shows nonspecific bilateral infiltrates. IMPRESSION: 1. Chronic obstructive pulmonary disease exacerbation and bronchitis. 2. Supraventricular tachycardia. 3. Morbid obesity. 4. Sleep apnea. PLAN: Continue antibiotics, neb treatments, and steroids. I will follow SVT, treated by Cardiology. Job ID: [id number]
[2018-06-14 09:47] LABS: ALT (SGPT) 25 U/L (8-55); AST (SGOT) 24 U/L (5-34); Albumin 3.5 g/dL (3.4-4.8); Alkaline Phosphatase 59 U/L (40-150); Anion Gap 13 mmol/L (10-20); BUN (Urea Nitrogen) 22 mg/dL (9.8-20.1); Bilirubin, Total 0.7 mg/dL (0.2-1.2); Calc. Creatinine Clearance 102 mL/min (70-130); Calcium 9.3 mg/dL (7.8-10.44); Carbon Dioxide 23 mmol/L (23-31); Chloride 108 mmol/L (98-107); Estimated GFR-MDRD 66; Glucose 111 mg/dL (83-110); Magnesium 2.1 mg/dL (1.6-2.6); Phosphorus 3.2 mg/dL (2.3-4.7); Potassium 3.8 mmol/L (3.5-5.1); Protein, Total 6.5 g/dL (6.0-8.3); Sodium 140 mmol/L (136-145)
--- NOTE | 2018-06-14 13:36 | PDOC.CTH ---
Cardiology Progress Note - Subjective SOB , on Bi-PAP mask. No chest pain. - Objective Vital Signs Temp Pulse Resp BP Pulse Ox 06/14/18 13:30 115 H 06/14/18 12:04 115 H 19 99 06/14/18 12:01 142 H 33 H 99 06/14/18 08:43 133/83 06/14/18 08:28 98 06/14/18 08:22 139 H 22 H 98 06/14/18 04:23 98.4 F 06/14/18 04:03 22 H 06/14/18 02:38 126 H 35 H 99 Weight 242 lb 4 oz 06/13/18 06/14/18 06/15/18 06:59 06:59 06:59 Intake Total 1640 990 Output Total 325 Balance 1640 665 - Labs Result Diagrams: 06/11/18 18:31 06/14/18 09:16 Troponin/CKMB CK-MB (CK-2) 2.2 ng/mL (0-6.6) 06/13/18 08:40 Troponin I Less than 0.010 ng/mL (< 0.028) 06/14/18 01:42 - Assessment/Plan 1.Atrial fibrillation with RVR. She continues to be in Afib with RVR despite several different medications. She has been on eliquis for several weeks. I will try to cardiovert her and continue antiarryhtmics. 2. CAD: stable. No chest pain 3. HTN. Continue to adjust meds post cardioversion. 4. Possible pneumonia vs CHF due to Afib. with RVR. Review of Systems - Review of Systems EENTM: reports: no symptoms reported Respiratory: reports: cough, shortness of breath, SOB at rest, wheezing Cardiac (ROS): reports: irregular heart rate ABD/GI: reports: no symptoms reported : reports: no symptoms reported Musculoskeletal: reports: no symptoms reported Skin: reports: no symptoms reported Neurological: reports: no symptoms reported
[2018-06-14] MEDS ORDERED: Ketamine 50 MG/ML (10ML VIAL) ONE (13:42)
[2018-06-14] MEDS ORDERED: hydrALAZINE 20 MG/ML VIAL ONE (14:17)
[2018-06-14] MEDS ORDERED: hydrALAZINE 20 MG/ML VIAL SLOW IVP SCH (14:45)
[2018-06-14] MEDS: Digoxin 0.5 MG/2 ML AMP SLOW IVP SCH ×2 (15:48→20:44)
[2018-06-14] MEDS: Lisinopril 20 MG TAB PO SCH (20:44)
[2018-06-14] MEDS: Rosuvastatin 10 MG TAB PO SCH (20:44)
--- NOTE | 2018-06-14 23:31 | OP ---
DATE OF PROCEDURE: 06/14/18 INDICATION FOR PROCEDURE: 72-year-old female who was admitted with CHF exacerbation and pneumonia. She has had history of atria l fibrillation documented over a month ago and was started on Eliquis. She was admitted to the [facility] and was noted to have atrial fibrillation with rapid ventricular response which makes me believe t hat some of what was thought to be pneumonia may be just overt congestive heart failure. She has been admitted. The heart rate continued to be significantly elevated despite multiple medications. She is on IV Amiodarone. She also was given IV beta blockers as well as p.o. beta blockers and also Diltiaz em. The heart rate still remains in the 120s and 130s. She also was given IV digoxin. She was advised to undergo electrocardioversion if possible to see if we can slow the heart rate down. Also her bloo d pressure was elevated at almost 160 to 200 systolic. She was given short acting anesthesia and then with ketamine and then using three attempts with a bip hasic defibrillator at 100, 150 and 200 joules she was eventually converted back to sinus rhythm. We will continue the amiodarone. She was also was given IV hydralazine due to systolic blood pressure of over 200 after the procedure. Otherwise, she tolerated the procedure well without difficulties or co mplications.
[2018-06-15] MEDS: Ipratropium Bromide 2.5 ml Neb NEB SCH ×6 (02:39→22:25)
--- NOTE | 2018-06-15 05:36 | PDOC.PN ---
- Subjective Encounter Start Date: 06/14/18 Encounter Start Time: 09:00 Subjective: pt up on comode still in afib rvr - Objective Resuscitation Status - Order Detail: 06/11/18 20:52 Resuscitation Status Routine Resuscitation Status: FULL: Full Resuscitation Discussed with: patient Vital Signs & Weight: Vital Signs (12 hours) Temp Pulse Resp Pulse Ox 06/15/18 04:05 98.4 F 06/15/18 02:40 74 19 100 06/15/18 00:02 98.2 F 06/14/18 22:18 84 25 H 100 06/14/18 20:44 75 06/14/18 20:40 98.4 F 06/14/18 19:44 75 29 H 100 Weight Weight 240 lb 4 oz Most Recent Monitor Data Heart Rate from ECG 79 NIBP 161/92 NIBP BP-Mean 115 Respiration from ECG 20 SpO2 99 I&O: 06/13/18 06/14/18 06/15/18 06:59 06:59 06:59 Intake Total 1640 990 400 Output Total 325 350 Balance 1640 665 50 Result Diagrams: 06/11/18 18:31 06/14/18 09:16 Additional Labs: Accuchecks 06/14/18 06/14/18 06/14/18 16:08 10:20 05:43 POC Glucose 135 H 107 101 Phys Exam - Physical Examination Respiratory: wheezing present Cardiovascular: irregular tachycardia Gastrointestinal: soft, non-tender, no distention, positive bowel sounds Musculoskeletal: no edema, pulses present, edema present Dx/Plan (1) Acute respiratory failure with hypoxia Code(s): J96.01 - ACUTE RESPIRATORY FAILURE WITH HYPOXIA Status: Acute (2) Pneumonia Code(s): J18.9 - PNEUMONIA, UNSPECIFIED ORGANISM Status: Acute (3) Atrial fibrillation with RVR Code(s): I48.91 - UNSPECIFIED ATRIAL FIBRILLATION Status: Acute - Plan pt has been on cardizem drip and amio without any effect -: she was given digoxin and will give her another dose, -: she also was given loperssor iv which still did not help. -: possible cardioversion. will continue abx/steroids. * . Review of Systems - Review of Systems ENT: negative: Ear Pain, Ear Discharge, Nose Pain, Nose Discharge, Nose Congestion, Mouth Pain, Mouth Swelling, Throat Pain, Throat Swelling, Other Respiratory: Shortness of Breath. negative: Cough, Dry, Hemoptysis, SOB with Excertion, Pleuritic Pain, Sputum, Wheezing Cardiovascular: negative: chest pain, palpitations, orthopnea, paroxysmal nocturnal dyspnea, edema, light headedness, other Gastrointestinal: negative: Nausea, Vomiting, Abdominal Pain, Diarrhea, Constipation, Melena, Hematochezia, Other - Medications/Allergies Allergies/Adverse Reactions: Allergies Allergy/AdvReac Type Severity Reaction Status Date / Time strawberries Allergy itching Uncoded 03/17/17 12:27 and rash Medications: Current Medications Amlodipine Besylate (Norvasc) 10 mg PO DAILY [facility] Apixaban (Eliquis) 5 mg PO BID [facility] Last Admin: 06/14/18 20:44 Dose: 5 mg Aspirin (Aspirin Chewable) 81 mg PO DAILY [facility] Last Admin: 06/14/18 08:43 Dose: 81 mg Digoxin (Lanoxin) 0.25 mg PO QAM [facility] Levofloxacin 750 mg/ Device 150 mls @ 100 mls/hr IVPB Q24HR [facility] Last Admin: 06/14/18 21:01 Dose: 150 mls Diltiazem HCl 125 mg/ Sodium (Chloride) 125 mls @ 15 mls/hr IVPB INF [facility]; Protocol Last Admin: 06/14/18 00:08 Dose: 125 mls Amiodarone HCl 450 mg/Miscellaneous Medication 1 each/ Dextrose/Water 259 mls @ 0 mls/hr IVPB INF [facility]; Protocol Last Admin: 06/14/18 22:12 Dose: 259 mls Ipratropium [place] (Atrovent) 2.5 ml NEB [id number] [facility] Last Admin: 06/15/18 02:39 Dose: 2.5 ml Isosorbide Dinitrate (Isordil) 30 mg PO BID [facility] Last Admin: 06/14/18 20:44 Dose: 30 mg Labetalol HCl (Labetalol Hcl) 20 mg SLOW IVP Q2H PRN PRN Reason: SBP GREATER THAN 160 Last Admin: 06/14/18 13:30 Dose: 20 mg Lisinopril (Zestril) 20 mg PO BID [facility] Last Admin: 06/14/18 20:44 Dose: 20 mg Methylprednisolone Sodium Succinate (Solu-Medrol) 40 mg IVP DAILY [facility] Last Admin: 06/14/18 08:46 Dose: 40 mg Metoprolol Succinate (Toprol Xl) 100 mg PO DAILY [facility] Last Admin: 06/14/18 08:43 Dose: 100 mg Ranolazine (Ranexa) 500 mg PO BID [facility] Last Admin: 06/14/18 20:44 Dose: 500 mg Rosuvastatin Calcium (Crestor) 10 mg PO HS [facility] Last Admin: 06/14/18 20:44 Dose: 10 mg Sodium Chloride (Flush - Normal Saline) 10 ml IVF Q12HR [facility] Last Admin: 06/14/18 20:44 Dose: 10 ml Sodium Chloride (Flush - Normal Saline) 10 ml IVF PRN PRN PRN Reason: Saline Flush Sterile Water (Bacteriostatic Water) 1 ml FS DAILY [facility] Last Admin: 06/14/18 08:46 Dose: 1 ml Venlafaxine HCl (Effexor) 75 mg PO BID [facility] Last Admin: 06/14/18 20:44 Dose: 75 mg
[2018-06-15] MEDS: Aspirin Chewable 81 MG TAB PO SCH (08:28)
[2018-06-15] MEDS: Amlodipine 10 MG TAB PO SCH (08:28)
[2018-06-15] MEDS: Isosorbide Dinitrate 20 MG TAB PO SCH ×2 (08:28→20:01)
[2018-06-15] MEDS: Apixaban 5 MG TAB PO SCH ×2 (08:28→20:01)
[2018-06-15] MEDS: methylPREDNISolone Sod Succ 40 MG VIAL IVP SCH (08:29)
[2018-06-15] MEDS: Digoxin 0.25 MG TAB PO SCH (08:29)
[2018-06-15] MEDS: Bacteriostatic Water 30 ML VIAL FS SCH (08:29)
[2018-06-15] MEDS: Lisinopril 20 MG TAB PO SCH ×2 (08:29→20:02)
--- NOTE | 2018-06-15 08:38 | PDOC.CTH ---
Cardiology Progress Note - Subjective The pt seen and examined. No overnight events. No cardiac complaints. She is resting well now. - Objective Vital Signs Temp Pulse Resp BP Pulse Ox 06/15/18 08:29 73 133/83 06/15/18 08:28 73 06/15/18 07:36 73 19 100 06/15/18 07:34 75 22 H 100 06/15/18 04:05 98.4 F 06/15/18 02:40 74 19 100 06/15/18 00:02 98.2 F 06/14/18 22:18 84 25 H 100 06/14/18 20:44 75 06/14/18 20:40 98.4 F Weight 240 lb 4 oz 06/14/18 06/15/18 06/16/18 06:59 06:59 06:59 Intake Total 990 1000 Output Total 325 900 Balance 665 100 - Physical Examination General/Neuro: alert & oriented x3 Neck: no JVD present Lungs: other: (coarses and diminished at bases) Heart: RRR Abdomen: soft Extremities: other: (No edema) - Telemetry Telemetry Rhythm: SR - Labs Result Diagrams: 06/11/18 18:31 06/14/18 09:16 Troponin/CKMB CK-MB (CK-2) 2.2 ng/mL (0-6.6) 06/13/18 08:40 Troponin I Less than 0.010 ng/mL (< 0.028) 06/14/18 01:42 - Assessment/Plan 1.Atrial fibrillation with RVR with S/p GERMAINE/DCCV on 06/14/2018 - remains in SR since the DCCV. On Amiodarone drip, Dig, Metoprolol 100mg, and Eliquis 5mg BID. 2. CAD: stable. On BBlocker, Statin, and ASA 81mg qd. 3. HTN: Norvasc 10mg qd was started from this AM. 4. Possible pneumonia - managed by PCP 5. CHF due to Afib. with RVR. - On BBlocker and ISABELLA; not on Diuretic for now. MAR reviewed Pt.seen and eval.by me.I agree with the A/Pby the DIETETICS TEACHER.She is maintaining NSR on Amiodarone. She feels better and the breathing has improved. Continue present Tx.Chest clear. RRR.No edema. Review of Systems - Review of Systems Constitutional: reports: no symptoms reported EENTM: reports: no symptoms reported Respiratory: reports: no symptoms reported Cardiac (ROS): reports: no symptoms reported ABD/GI: reports: no symptoms reported : reports: no symptoms reported Musculoskeletal: reports: no symptoms reported Skin: reports: no symptoms reported
[2018-06-15] MEDS ORDERED: Digoxin 0.125 MG TAB PO SCH (09:00)
--- NOTE | 2018-06-15 09:53 | PRG ---
DATE OF SERVICE: 06/15/2018 SUBJECTIVE: Sanjana Esquivel is a 72-year-old better this morning since the heart rate is controlled, cough is less purulent. OBJECTIVE: VITAL SIGNS: Pulse rate is 85, blood pressure is 133/83, temperature 98.4, respiratory rate 23. CHEST: Decreased breath sounds. No wheezing. CARDIAC: Normal S1 and S2. No gallops no murmers LABORATORY DATA: Lytes are normal. ASSESSMENT AND PLAN: Supraventricular tachycardia, sleep apnea, chronic obstructive pulmonary disease, bronchitis. She is much improved. We will switch her over to oral antibiotics and prednisone. Continue aggressive PT, nocturnal ventilation. Job ID: [id number] [facility]
--- NOTE | 2018-06-15 14:50 | PDOC.PN ---
- Subjective Encounter Start Date: 06/15/18 Encounter Start Time: 10:00 Subjective: pt up in chair feels good today - Objective Resuscitation Status - Order Detail: 06/11/18 20:52 Resuscitation Status Routine Resuscitation Status: FULL: Full Resuscitation Discussed with: patient Vital Signs & Weight: Vital Signs (12 hours) Temp Pulse Resp BP Pulse Ox 06/15/18 14:09 76 20 100 06/15/18 10:25 84 23 H 94 L 06/15/18 08:29 73 133/83 06/15/18 08:28 73 06/15/18 07:36 73 19 100 06/15/18 07:34 75 22 H 100 06/15/18 04:05 98.4 F Weight Weight 240 lb 4 oz Most Recent Monitor Data Heart Rate from ECG 78 NIBP 131/76 NIBP BP-Mean 94 Respiration from ECG 21 SpO2 97 I&O: 06/14/18 06/15/18 06/16/18 06:59 06:59 06:59 Intake Total 990 1000 Output Total 325 900 Balance 665 100 Result Diagrams: 06/11/18 18:31 06/14/18 09:16 Additional Labs: Accuchecks 06/15/18 06/15/18 06/14/18 10:52 05:39 16:08 POC Glucose 139 H 105 135 H Phys Exam - Physical Examination Respiratory: wheezing present Cardiovascular: RRR, no significant murmur, no rub, gallop, irregular Gastrointestinal: soft, non-tender, no distention, positive bowel sounds Musculoskeletal: no edema, pulses present, edema present Dx/Plan (1) Acute respiratory failure with hypoxia Code(s): J96.01 - ACUTE RESPIRATORY FAILURE WITH HYPOXIA Status: Acute (2) Pneumonia Code(s): J18.9 - PNEUMONIA, UNSPECIFIED ORGANISM Status: Acute (3) Atrial fibrillation with RVR Code(s): I48.91 - UNSPECIFIED ATRIAL FIBRILLATION Status: Acute - Plan pt underwent cardioversion 06/14 now sinus -: will conitnue AC. will conitnue abx/steroids and nebs * . Review of Systems - Review of Systems Respiratory: negative: Cough, Dry, Shortness of Breath, Hemoptysis, SOB with Excertion, Pleuritic Pain, Sputum, Wheezing Cardiovascular: negative: chest pain, palpitations, orthopnea, paroxysmal nocturnal dyspnea, edema, light headedness, other Gastrointestinal: negative: Nausea, Vomiting, Abdominal Pain, Diarrhea, Constipation, Melena, Hematochezia, Other - Medications/Allergies Allergies/Adverse Reactions: Allergies Allergy/AdvReac Type Severity Reaction Status Date / Time strawberries Allergy itching Uncoded 03/17/17 12:27 and rash Medications: Current Medications Amlodipine Besylate (Norvasc) 10 mg PO DAILY [facility] Last Admin: 06/15/18 08:28 Dose: 10 mg Apixaban (Eliquis) 5 mg PO BID [facility] Last Admin: 06/15/18 08:28 Dose: 5 mg Aspirin (Aspirin Chewable) 81 mg PO DAILY [facility] Last Admin: 06/15/18 08:28 Dose: 81 mg Digoxin (Lanoxin) 0.25 mg PO QAM [facility] Last Admin: 06/15/18 08:29 Dose: 0.25 mg Diltiazem HCl 125 mg/ Sodium (Chloride) 125 mls @ 15 mls/hr IVPB INF [facility]; Protocol Last Admin: 06/14/18 00:08 Dose: 125 mls Amiodarone HCl 450 mg/Miscellaneous Medication 1 each/ Dextrose/Water 259 mls @ 0 mls/hr IVPB INF [facility]; Protocol Last Admin: 06/14/18 22:12 Dose: 259 mls Ipratropium [place] (Atrovent) 2.5 ml NEB [id number] [facility] Last Admin: 06/15/18 14:09 Dose: 2.5 ml Isosorbide Dinitrate (Isordil) 30 mg PO BID [facility] Last Admin: 06/15/18 08:28 Dose: 30 mg Labetalol HCl (Labetalol Hcl) 20 mg SLOW IVP Q2H PRN PRN Reason: SBP GREATER THAN 160 Last Admin: 06/14/18 13:30 Dose: 20 mg Levofloxacin (Levaquin) 500 mg PO 0600 [facility] Stop: 06/21/18 06:01 Lisinopril (Zestril) 20 mg PO BID [facility] Last Admin: 06/15/18 08:29 Dose: 20 mg Metoprolol Succinate (Toprol Xl) 100 mg PO DAILY [facility] Last Admin: 06/15/18 08:28 Dose: 100 mg Prednisone (Prednisone) 20 mg PO QAM[facility] Ranolazine (Ranexa) 500 mg PO BID [facility] Last Admin: 06/15/18 08:29 Dose: 500 mg Rosuvastatin Calcium (Crestor) 10 mg PO HS [facility] Last Admin: 06/14/18 20:44 Dose: 10 mg Sodium Chloride (Flush - Normal Saline) 10 ml IVF Q12HR [facility] Last Admin: 06/15/18 08:31 Dose: 10 ml Sodium Chloride (Flush - Normal Saline) 10 ml IVF PRN PRN PRN Reason: Saline Flush Sterile Water (Bacteriostatic Water) 1 ml FS DAILY [facility] Last Admin: 06/15/18 08:29 Dose: 1 ml Venlafaxine HCl (Effexor) 75 mg PO BID [facility] Last Admin: 06/15/18 08:28 Dose: 75 mg
[2018-06-15] MEDS: Rosuvastatin 10 MG TAB PO SCH (20:01)
[2018-06-16] MEDS: Ipratropium Bromide 2.5 ml Neb NEB SCH ×6 (02:43→22:49)
--- NOTE | 2018-06-16 08:53 | PDOC.CTH ---
Cardiology Progress Note - Subjective The pt seen and examined. No overnight events. No cardiac complaints. Stable with RA. - Objective Vital Signs Temp Pulse Resp Pulse Ox 06/16/18 08:17 75 19 97 06/16/18 08:00 97.6 F 06/16/18 04:04 98.2 F 06/16/18 02:43 73 18 96 06/16/18 02:42 92 L 06/16/18 01:09 70 20 99 06/16/18 00:13 98.1 F 06/15/18 22:25 69 20 96 Weight 241 lb 5 oz 06/15/18 06/16/18 06/17/18 06:59 06:59 06:59 Intake Total 1000 1233.7 Output Total 900 625 Balance 100 608.7 - Physical Examination General/Neuro: alert & oriented x3 Neck: no JVD present Lungs: other: (diminished at bases) Heart: RRR Abdomen: soft Extremities: other: (No edema) - Telemetry Telemetry Rhythm: SR - Labs Result Diagrams: 06/11/18 18:31 06/16/18 12:39 Troponin/CKMB CK-MB (CK-2) 2.2 ng/mL (0-6.6) 06/13/18 08:40 Troponin I Less than 0.010 ng/mL (< 0.028) 06/14/18 01:42 - Assessment/Plan 1.Atrial fibrillation with RVR with S/p GERMAINE/DCCV on 06/14/2018 - remains in SR since the DCCV. On Amiodarone drip, which changed to 200mg TID for 2wks, 200mg BID for 2wks, and 200mg qd from this AM; On Dig 0.125mg po, Metoprolol 100mg, and Eliquis 5mg BID. 2. CAD: stable. On BBlocker, Statin, and ASA 81mg qd. 3. HTN: stable; 4. Possible pneumonia - managed by PCP 5. Acute on Chronic diastolic CHF due to Afib. with RVR. - On BBlocker and ISABELLA; not on Diuretic for now. MAR reviewed Pt. seen and eval. by me. I agree with the A/P by the CLOTH OPENER HAND. She has no cardiac complaints. RRR. Chest clear. Review of Systems - Review of Systems Constitutional: reports: weakness EENTM: reports: no symptoms reported Respiratory: reports: SOB with excertion Cardiac (ROS): reports: no symptoms reported ABD/GI: reports: no symptoms reported : reports: no symptoms reported Musculoskeletal: reports: no symptoms reported Skin: reports: no symptoms reported
--- NOTE | 2018-06-16 09:07 | PRG ---
DATE OF SERVICE: 06/16/2018 SUBJECTIVE: This morning, she is better. She is less short of breath and still on Cardizem drip. OBJECTIVE: VITAL SIGNS: Saturations are 97% on 2 L, temperature 97, pulse 75, blood pressure 130/75. CHEST: Decreased breath sounds. No wheezing. CARDIAC: Normal S1 and S2. No gallops. ABDOMEN: No masses. ASSESSMENT: 1. Atrial fibrillation. 2. Chronic obstructive pulmonary disease. 3. Sleep apnea. PLAN: Continue present neb treatments and antibiotics. DISPOSITION: As per primary care physician. Job ID: [id number]
[2018-06-16] MEDS: Isosorbide Dinitrate 20 MG TAB PO SCH ×2 (09:41→20:41)
[2018-06-16] MEDS: Amiodarone 200 MG TAB PO SCH ×3 (09:41→20:41)
[2018-06-16] MEDS: Digoxin 0.25 MG TAB PO SCH (09:42)
[2018-06-16] MEDS: Lisinopril 20 MG TAB PO SCH ×2 (09:42→20:42)
[2018-06-16] MEDS: Apixaban 5 MG TAB PO SCH ×2 (09:42→20:40)
[2018-06-16] MEDS: Amlodipine 10 MG TAB PO SCH (09:42)
[2018-06-16] MEDS: Aspirin Chewable 81 MG TAB PO SCH (09:43)
[2018-06-16] MEDS: predniSONE 20 MG TAB PO SCH (09:43)
[2018-06-16] MEDS: Bacteriostatic Water 30 ML VIAL FS SCH (09:44)
[2018-06-16 13:06] LABS: Anion Gap 12 mmol/L (10-20); BUN (Urea Nitrogen) 21 mg/dL (9.8-20.1); Calc. Creatinine Clearance 109 mL/min (70-130); Calcium 8.9 mg/dL (7.8-10.44); Carbon Dioxide 27 mmol/L (23-31); Chloride 104 mmol/L (98-107); Estimated GFR-MDRD 72; Glucose 96 mg/dL (83-110); Potassium 4.2 mmol/L (3.5-5.1); Sodium 139 mmol/L (136-145)
[2018-06-16] MEDS: Rosuvastatin 10 MG TAB PO SCH (20:42)
--- NOTE | 2018-06-16 21:06 | PDOC.PN ---
- Subjective Encounter Start Date: 06/16/18 Encounter Start Time: 10:00 Subjective: pt up in bed no complains of sob - Objective Resuscitation Status - Order Detail: 06/11/18 20:52 Resuscitation Status Routine Resuscitation Status: FULL: Full Resuscitation Discussed with: patient Vital Signs & Weight: Vital Signs (12 hours) Pulse Resp BP Pulse Ox 06/16/18 20:42 129/66 06/16/18 19:20 73 22 H 94 L 06/16/18 15:34 67 23 H 95 06/16/18 10:39 77 21 H 95 06/16/18 09:42 75 140/81 Weight Weight 241 lb 5 oz Most Recent Monitor Data Heart Rate from ECG 74 NIBP 133/75 NIBP BP-Mean 94 Respiration from ECG 21 SpO2 93 I&O: 06/15/18 06/16/18 06/17/18 06:59 06:59 06:59 Intake Total 1000 1233.7 928 Output Total 245 137 0186 Balance 100 608.7 -322 Result Diagrams: 06/11/18 18:31 06/16/18 12:39 Additional Labs: Accuchecks 06/16/18 06/16/18 06/16/18 16:37 10:13 06:10 POC Glucose 141 H 169 H 88 06/15/18 21:06 POC Glucose 80 Phys Exam - Physical Examination Neck: no nodes, no JVD, supple, full ROM Respiratory: wheezing present Cardiovascular: RRR, no significant murmur, no rub, gallop, irregular Gastrointestinal: soft, non-tender, no distention, positive bowel sounds Musculoskeletal: no edema, pulses present, edema present Dx/Plan (1) Acute respiratory failure with hypoxia Code(s): J96.01 - ACUTE RESPIRATORY FAILURE WITH HYPOXIA Status: Acute (2) Pneumonia Code(s): J18.9 - PNEUMONIA, UNSPECIFIED ORGANISM Status: Acute (3) Atrial fibrillation with RVR Code(s): I48.91 - UNSPECIFIED ATRIAL FIBRILLATION Status: Acute - Plan s/p cardioversion, pt now rate controlled -: will continue abx and steroids -: pt stable to be tranfered to tele. * . Review of Systems - Review of Systems Respiratory: negative: Cough, Dry, Shortness of Breath, Hemoptysis, SOB with Excertion, Pleuritic Pain, Sputum, Wheezing Cardiovascular: negative: chest pain, palpitations, orthopnea, paroxysmal nocturnal dyspnea, edema, light headedness, other Gastrointestinal: negative: Nausea, Vomiting, Abdominal Pain, Diarrhea, Constipation, Melena, Hematochezia, Other - Medications/Allergies Allergies/Adverse Reactions: Allergies Allergy/AdvReac Type Severity Reaction Status Date / Time strawberries Allergy itching Uncoded 03/17/17 12:27 and rash Medications: Current Medications Amiodarone HCl (Cordarone) 200 mg PO TID [facility] Last Admin: 06/16/18 20:41 Dose: 200 mg Amlodipine Besylate (Norvasc) 10 mg PO DAILY [facility] Last Admin: 06/16/18 09:42 Dose: 10 mg Apixaban (Eliquis) 5 mg PO BID [facility] Last Admin: 06/16/18 20:40 Dose: 5 mg Aspirin (Aspirin Chewable) 81 mg PO DAILY [facility] Last Admin: 06/16/18 09:43 Dose: 81 mg Digoxin (Lanoxin) 0.25 mg PO QAM [facility] Last Admin: 06/16/18 09:42 Dose: 0.25 mg Diltiazem HCl 125 mg/ Sodium (Chloride) 125 mls @ 15 mls/hr IVPB INF [facility]; Protocol Last Admin: 06/14/18 00:08 Dose: 125 mls Ipratropium Wann (Atrovent) 2.5 ml NEB [id number] [facility] Last Admin: 06/16/18 19:20 Dose: 2.5 ml Isosorbide Dinitrate (Isordil) 30 mg PO BID [facility] Last Admin: 06/16/18 20:41 Dose: 30 mg Labetalol HCl (Labetalol Hcl) 20 mg SLOW IVP Q2H PRN PRN Reason: SBP GREATER THAN 160 Last Admin: 06/14/18 13:30 Dose: 20 mg Levofloxacin (Levaquin) 500 mg PO 0600 [facility] Stop: 06/21/18 06:01 Last Admin: 06/16/18 05:26 Dose: 500 mg Lisinopril (Zestril) 20 mg PO BID [facility] Last Admin: 06/16/18 20:42 Dose: 20 mg Metoprolol Succinate (Toprol Xl) 100 mg PO DAILY [facility] Last Admin: 06/16/18 09:42 Dose: 100 mg Prednisone (Prednisone) 20 mg PO QAM[facility] Last Admin: 06/16/18 09:43 Dose: 20 mg Ranolazine (Ranexa) 500 mg PO BID [facility] Last Admin: 06/16/18 20:42 Dose: 500 mg Rosuvastatin Calcium (Crestor) 10 mg PO HS [facility] Last Admin: 06/16/18 20:42 Dose: 10 mg Sodium Chloride (Flush - Normal Saline) 10 ml IVF Q12HR [facility] Last Admin: 06/16/18 20:43 Dose: 10 ml Sodium Chloride (Flush - Normal Saline) 10 ml IVF PRN PRN PRN Reason: Saline Flush Sterile Water (Bacteriostatic Water) 1 ml FS DAILY [facility] Last Admin: 06/16/18 09:44 Dose: Not Given Venlafaxine HCl (Effexor) 75 mg PO BID [facility] Last Admin: 06/16/18 20:46 Dose: 75 mg
[2018-06-17] MEDS ORDERED: Ipratropium Bromide 2.5 ml Neb ONE (02:28)
[2018-06-17] MEDS: Ipratropium Bromide 2.5 ml Neb NEB SCH ×5 (02:30→18:41)
[2018-06-17] MEDS: Aspirin Chewable 81 MG TAB PO SCH (09:19)
[2018-06-17] MEDS: predniSONE 20 MG TAB PO SCH (09:19)
[2018-06-17] MEDS: Isosorbide Dinitrate 20 MG TAB PO SCH ×2 (09:19→20:42)
[2018-06-17] MEDS: Amiodarone 200 MG TAB PO SCH ×3 (09:19→20:43)
[2018-06-17] MEDS: Amlodipine 10 MG TAB PO SCH (09:19)
[2018-06-17] MEDS: Digoxin 0.25 MG TAB PO SCH (09:19)
[2018-06-17] MEDS: Apixaban 5 MG TAB PO SCH ×2 (09:19→20:41)
[2018-06-17] MEDS: Lisinopril 20 MG TAB PO SCH ×2 (09:20→20:43)
[2018-06-17] MEDS: Bacteriostatic Water 30 ML VIAL FS SCH (09:20)
--- NOTE | 2018-06-17 09:34 | PDOC.CTH ---
Cardiology Progress Note - Objective Vital Signs Temp Pulse Resp BP Pulse Ox 06/17/18 09:20 129/66 06/17/18 09:19 65 137/84 06/17/18 07:21 96.8 F L 06/17/18 06:27 65 13 100 06/17/18 04:00 97.2 F L 06/17/18 02:30 67 24 H 100 06/17/18 00:37 97.8 F 06/16/18 22:49 73 20 98 Weight 245 lb 3.2 oz 06/16/18 06/17/18 06/18/18 06:59 06:59 06:59 Intake Total 1233.7 1128 Output Total 625 1825 Balance 608.7 -697 - Physical Examination General/Neuro: alert & oriented x3 Neck: carotid US brisk, no JVD present Lungs: other: (few left mid rales.) Heart: RRR Abdomen: NT/ND - Labs Result Diagrams: 06/11/18 18:31 06/16/18 12:39 Troponin/CKMB CK-MB (CK-2) 2.2 ng/mL (0-6.6) 06/13/18 08:40 Troponin I Less than 0.010 ng/mL (< 0.028) 06/14/18 01:42 - Assessment/Plan 1.Atrial fibrillation with RVR with S/p GERMAINE/DCCV on 06/14/2018 - remains in SR since the DCCV. On Amiodarone 200mg TID for 2wks, 200mg BID for 2wks, and 200mg qd ; On Dig 0.125mg po, Metoprolol 100mg, and Eliquis 5mg BID. Will d/c dig. 2. CAD: stable. On BBlocker, Statin, and ASA 81mg qd. 3. HTN: stable; 4. Possible pneumonia - managed by PCP 5. Acute on Chronic diastolic CHF due to Afib. with RVR. - On BBlocker and ISABELLA; not on Diuretic for now. MAR reviewed Overall doing well, prob. home larer today or tomorrow.
--- NOTE | 2018-06-17 13:57 | PDOC.PN ---
- Subjective Encounter Start Date: 06/17/18 Encounter Start Time: 10:00 Subjective: pt up in chair playing cards - Objective Resuscitation Status - Order Detail: 06/11/18 20:52 Resuscitation Status Routine Resuscitation Status: FULL: Full Resuscitation Discussed with: patient Vital Signs & Weight: Vital Signs (12 hours) Temp Pulse Resp BP Pulse Ox 06/17/18 11:30 98.0 F 06/17/18 10:25 77 22 H 100 06/17/18 09:20 129/66 06/17/18 09:19 65 137/84 06/17/18 08:00 95 06/17/18 07:21 96.8 F L 06/17/18 06:27 65 13 100 06/17/18 04:00 97.2 F L 06/17/18 02:30 67 24 H 100 Weight Weight 245 lb 3.2 oz Most Recent Monitor Data Heart Rate from ECG 67 NIBP 115/64 NIBP BP-Mean 81 Respiration from ECG 29 SpO2 92 I&O: 06/16/18 06/17/18 06/18/18 06:59 06:59 06:59 Intake Total 1233.7 1128 Output Total 625 1825 Balance 608.7 -697 Result Diagrams: 06/11/18 18:31 06/16/18 12:39 Additional Labs: Accuchecks 06/17/18 06/17/18 06/16/18 10:35 06:07 20:41 POC Glucose 101 75 151 H 06/16/18 16:37 POC Glucose 141 H Phys Exam - Physical Examination Respiratory: no wheezing, no rales, no rhonchi, wheezing present, clear to auscultation bilateral Cardiovascular: RRR, no significant murmur, no rub, gallop, irregular Gastrointestinal: soft, non-tender, no distention, positive bowel sounds Musculoskeletal: no edema, pulses present, edema present Dx/Plan (1) Acute respiratory failure with hypoxia Code(s): J96.01 - ACUTE RESPIRATORY FAILURE WITH HYPOXIA Status: Acute (2) Pneumonia Code(s): J18.9 - PNEUMONIA, UNSPECIFIED ORGANISM Status: Acute (3) Atrial fibrillation with RVR Code(s): I48.91 - UNSPECIFIED ATRIAL FIBRILLATION Status: Acute - Plan will continue abx for now -: possible discharge in am -: will observe her one more day, will ask nurse to ambulate her to see if she -: gets sob. * . Review of Systems - Review of Systems Respiratory: negative: Cough, Dry, Shortness of Breath, Hemoptysis, SOB with Excertion, Pleuritic Pain, Sputum, Wheezing Cardiovascular: negative: chest pain, palpitations, orthopnea, paroxysmal nocturnal dyspnea, edema, light headedness, other Gastrointestinal: negative: Nausea, Vomiting, Abdominal Pain, Diarrhea, Constipation, Melena, Hematochezia, Other - Medications/Allergies Allergies/Adverse Reactions: Allergies Allergy/AdvReac Type Severity Reaction Status Date / Time strawberries Allergy itching Uncoded 03/17/17 12:27 and rash Medications: Current Medications Amiodarone HCl (Cordarone) 200 mg PO TID [facility] Last Admin: 06/17/18 13:13 Dose: 200 mg Amlodipine Besylate (Norvasc) 10 mg PO DAILY [facility] Last Admin: 06/17/18 09:19 Dose: 10 mg Apixaban (Eliquis) 5 mg PO BID [facility] Last Admin: 06/17/18 09:19 Dose: 5 mg Aspirin (Aspirin Chewable) 81 mg PO DAILY [facility] Last Admin: 06/17/18 09:19 Dose: 81 mg Ipratropium Bellamy (Atrovent) 2.5 ml NEB [id number] [facility] Last Admin: 06/17/18 10:25 Dose: 2.5 ml Isosorbide Dinitrate (Isordil) 30 mg PO BID [facility] Last Admin: 06/17/18 09:19 Dose: 30 mg Labetalol HCl (Labetalol Hcl) 20 mg SLOW IVP Q2H PRN PRN Reason: SBP GREATER THAN 160 Last Admin: 06/14/18 13:30 Dose: 20 mg Levofloxacin (Levaquin) 500 mg PO 0600 [facility] Stop: 06/21/18 06:01 Last Admin: 06/17/18 06:05 Dose: 500 mg Lisinopril (Zestril) 20 mg PO BID [facility] Last Admin: 06/17/18 09:20 Dose: 20 mg Metoprolol Succinate (Toprol Xl) 100 mg PO DAILY [facility] Last Admin: 06/17/18 09:19 Dose: 100 mg Prednisone (Prednisone) 20 mg PO QAM-WM [facility] Last Admin: 06/17/18 09:19 Dose: 20 mg Ranolazine (Ranexa) 500 mg PO BID [facility] Last Admin: 06/17/18 09:19 Dose: 500 mg Rosuvastatin Calcium (Crestor) 10 mg PO HS [facility] Last Admin: 06/16/18 20:42 Dose: 10 mg Sodium Chloride (Flush - Normal Saline) 10 ml IVF Q12HR [facility] Last Admin: 06/17/18 09:20 Dose: 10 ml Sodium Chloride (Flush - Normal Saline) 10 ml IVF PRN PRN PRN Reason: Saline Flush Sterile Water (Bacteriostatic Water) 1 ml FS DAILY [facility] Last Admin: 06/17/18 09:20 Dose: Not Given Venlafaxine HCl (Effexor) 75 mg PO BID [facility] Last Admin: 06/17/18 09:19 Dose: 75 mg
--- NOTE | 2018-06-17 19:49 | PRG ---
DATE OF SERVICE: 06/17/2018 SUBJECTIVE: Sanjana Esquivel is sitting in a bedside chair, playing cards with her sister. OBJECTIVE: GENERAL: She was in no distress. VITAL SIGNS: She is afebrile. Heart rate in the 60s, blood pressure 144/70, and respiratory rates in the 20s. LUNGS: Clear. HEART: Regular rhythm. ABDOMEN: Soft. LABORATORY DATA: White count 10, hemoglobin 13.2, platelets 138 on the 10th. There is no CBC since then. Electrolytes yesterday were unremarkable. Heart rate was in 60s. IMPRESSION: 1. Atrial fibrillation. 2. Chronic obstructive pulmonary disease, that is clinically stable. 3. Probable sleep apnea. 4. Continue with amiodarone and Eliquis as well as baby aspirin. She is also on a beta aracelis. Probably change her nebulized treatments to q.i.d. She is in no distress and had no pulmonary complaints. Job ID: [id number]
[2018-06-17] MEDS: Rosuvastatin 10 MG TAB PO SCH (20:41)
[2018-06-18] MEDS: Ipratropium Bromide 2.5 ml Neb NEB SCH ×2 (08:46→12:57)
[2018-06-18] MEDS: Lisinopril 20 MG TAB PO SCH (08:56)
[2018-06-18] MEDS: Isosorbide Dinitrate 20 MG TAB PO SCH (08:57)
[2018-06-18] MEDS: Apixaban 5 MG TAB PO SCH (08:57)
[2018-06-18] MEDS: Amlodipine 10 MG TAB PO SCH (08:57)
[2018-06-18] MEDS: Amiodarone 200 MG TAB PO SCH ×2 (08:57→13:27)
[2018-06-18] MEDS: Aspirin Chewable 81 MG TAB PO SCH (08:57)
[2018-06-18] MEDS: predniSONE 20 MG TAB PO SCH (08:57)
[2018-06-18 08:58] VITALS: BP 129/81
[2018-06-18 11:39] VITALS: TEMP 97.8
--- NOTE | 2018-06-18 13:45 | PDOC.CTH ---
Cardiology Progress Note - Subjective Pt. seen and eval. No complaints. ambulating with out problems. Ready to go home. - Objective Vital Signs Temp Pulse Resp BP Pulse Ox 06/18/18 12:57 61 18 95 06/18/18 11:39 97.8 F 06/18/18 08:57 62 129/81 06/18/18 08:56 129/81 06/18/18 08:46 62 18 06/18/18 08:05 96.6 F L 06/18/18 08:00 95 06/18/18 03:47 97.8 F Weight 243 lb 8 oz 06/17/18 06/18/18 06/19/18 06:59 06:59 06:59 Intake Total 1128 1030 Output Total 1825 1650 Balance -697 -620 - Physical Examination General/Neuro: alert & oriented x3 Neck: no JVD present Lungs: CTA Heart: RRR Abdomen: NT/ND - Labs Result Diagrams: 06/11/18 18:31 06/16/18 12:39 Troponin/CKMB CK-MB (CK-2) 2.2 ng/mL (0-6.6) 06/13/18 08:40 Troponin I Less than 0.010 ng/mL (< 0.028) 06/14/18 01:42 - Assessment/Plan 1.Atrial fibrillation with RVR with S/p GERMAINE/DCCV on 06/14/2018 - remains in SR since the DCCV. On Amiodarone 200mg TID for 2wks, 200mg BID for 2wks, and 200mg qd ; On Dig 0.125mg po, Metoprolol 100mg, and Eliquis 5mg BID. Will d/c dig. 2. CAD: stable. On BBlocker, Statin, and ASA 81mg qd. 3. HTN: stable; 4. Possible pneumonia - managed by PCP 5. Acute on Chronic diastolic CHF due to Afib. with RVR. - On BBlocker and ISABELLA; not on Diuretic for now. MAR reviewed Overall doing well, home today. F/U with me or WIRE REPAIRER in 2-3 weeks.
--- NOTE | 2018-06-18 19:41 | PRG ---
DATE OF SERVICE: 06/18/2018 OBJECTIVE: VITAL SIGNS: Sanjana Esquivel down to room air with oximetry 97. LUNGS: She still had crackles at both lung bases. GENERAL: She was in no distress. HEART: Regular rhythm. ABDOMEN: Soft. She is doing well with walking with PT. She has been discharged by the hospitalist. I have encouraged her to follow up with Dr. Dailey in 2 to 3 weeks for a chest x-ray. I wrote for prednisone 20 mg for 6 days, 10 mg for 6 days, and I wrote for a week more of her antibiotic Levaquin 500 mg a day. The hospitalist had already written all the other prescriptions. Job ID: [id number]
--- NOTE | 2018-06-19 00:57 | DIS ---
DATE OF ADMISSION: 06/11/2018 DATE OF DISCHARGE: 06/18/2018 DISCHARGE DIAGNOSES: As of the following; 1. Acute respiratory failure with hypoxia. 2. Pneumonia. 3. Atrial fibrillation with rapid ventricular response. HOSPITAL COURSE: The patient is a very pleasant 72-year-old female who recently came off a cruise, started having significant shortness of breath. She came into the ER. She had a CTA of her chest, which indicated no PE, however, she had multifocal right worse than left central airspace opacifications and she also had a 13-mm nodule in her right upper lobe. The patient also had significant adenopathy and she was admitted to the hospital. The patient initially was put on broad-spectrum antibiotics. The patient continued to improve. She was also put on DuoNeb and on steroids since she had significant wheezing. The patient at this time went into atrial fibrillation with rapid ventricular response. She was then transferred to [facility]. Her blood pressure continued to be stable. She was put on Cardizem. She was given digoxin and she was put on amiodarone for about 24 hours. She continued to be in atrial fibrillation with rapid ventricular response. At this time, she was seen by Cardiology and underwent a cardioversion. She was on anticoagulation. The patient has been in sinus rhythm since then. She will continue her anticoagulation and her amiodarone. She will follow up with Cardiology and her primary care doctor as needed. MEDICATIONS: Her home medications are as of the following. 1. She is on isosorbide 30 mg b.i.d. 2. Metoprolol 100 mg q.a.m. 3. Ranexa 1000 b.i.d. 4. AcipHex 20 mg daily. 5. Venlafaxine 75 mg b.i.d. 6. Rosuvastatin 10 mg at bedtime. 7. Lisinopril 10 mg b.i.d. 8. Aspirin 81 mg daily. 9. Prednisone 20 mg for the next two days. 10. Levofloxacin 500 mg daily. 11. Eliquis 5 mg b.i.d. 12. Norvasc 10 mg daily. 13. Amiodarone 200 mg t.i.d. Initially I did put her on doxycycline given her significant contraindications with the amiodarone. However, this was switched to levofloxacin by Pulmonology. Her home medications as I mentioned, were isosorbide 30 mg b.i.d., metoprolol 100 mg q.a.m., Eliquis 5 mg b.i.d., Norvasc 10 mg daily, amiodarone 200 mg t.i.d. for two weeks, then 200 mg b.i.d. for two weeks, then 200 mg daily. She has been given a script for that. Also, she is on Levaquin 500 mg for another 7 days, prednisone 20 mg for next few days. DISCHARGE PHYSICAL EXAMINATION: VITAL SIGNS: 98.8, 61, 18, 95% on room air, 120/62. GENERAL: She is awake, alert, oriented x3, does not appear in any distress. CV: S1, S2 present. No murmurs, rubs, or gallops. ABDOMEN: Soft and nontender. Bowel sounds are present x2. EXTREMITIES: No edema. Pedal pulses are present x2. Again, she will follow up with her PCP, Dr. Mcbride next week and I have recommended her to follow up with Dr. Copeland in about 2 weeks. Job ID: [id number]
== END 2018-06-18 15:00 | disposition home or self-care (01) | DRG 193 ==
LOC: ERS 17:49 → T4-B 22:46 → IMCU/EMU 06-13 10:09
PROVIDERS: ADMIT Family Medicine; ATTEND Family Medicine
DX: J18.9 Pneumonia, unspecified organism (principal); J96.01 Acute respiratory failure with hypoxia; I50.33 Acute on chronic diastolic (congestive) heart failure; Z68.42 Body mass index [BMI] 45.0-49.9, adult; J44.0 Chronic obstructive pulmonary disease with (acute) lower respiratory infection; J44.1 Chronic obstructive pulmonary disease with (acute) exacerbation; I47.1 Supraventricular tachycardia; I48.0 Paroxysmal atrial fibrillation; I25.10 Atherosclerotic heart disease of native coronary artery without angina pectoris; D69.6 Thrombocytopenia, unspecified; E87.6 Hypokalemia; E66.01 Morbid (severe) obesity due to excess calories; E11.9 Type 2 diabetes mellitus without complications; E78.5 Hyperlipidemia, unspecified; K21.9 Gastro-esophageal reflux disease without esophagitis; I11.0 Hypertensive heart disease with heart failure; G47.33 Obstructive sleep apnea (adult) (pediatric); Z79.01 Long term (current) use of anticoagulants; R59.9 Enlarged lymph nodes, unspecified
CPT/HCPCS: 36415; 36416; 71045; 71275; 80048; 80053; 82550; 82553; 82805; 83605; 83690; 83735; 83880; 84100; 84443; 84484; 85025; 87040; 87804; 93005; 93010; 94640; 94660; 96365; 96366; 96375; J0282; J0360; J1100; J1160; J1650; J1940; J1956; J2920; J3480; J3490; J7050; J7070; J7620; Q9966

== ENCOUNTER 2018-12-31 13:50 | Observation (INO) | payer MEDICARE ==
--- NOTE | 2018-12-31 14:31 | RAD ---
EXAM: Chest one view: HISTORY: Shortness of breath, peripheral edema COMPARISON: 06/11/2018 FINDINGS: Stable right hemidiaphragm elevation. Stable increased markings in the perihilar regions evidence for some chronic change. Heart size: Within normal limits. Lungs: Clear of acute process. No evidence for pneumonia, pleural effusion, acute edema, or pneumothorax, or other significant acute process. IMPRESSION: No significant acute intrathoracic disease.
[2018-12-31 14:49] LABS: #Eosinphils 0.1 thou/uL (0.0-0.7); #Lymphocytes 1.4 thou/uL (1.20-3.40); #Monocytes 0.8 thou/uL (0.11-0.59); #Neutrophils 5.4 thou/uL (1.40-6.50); %Basophils 0.2 % (0.0-1.0); %Eosinophils 1.4 % (0.0-10.0); %Lymphocytes 18.3 % (21.0-51.0); %Neutrophils 70.2 % (42.0-75.0); Hemoglobin 12.8 g/dL (12.0-16.0); Mean Corpuscular HGB CONC 33.8 g/dL (32.0-36.0); Mean Corpuscular Hemoglobin 32.8 pg (27.0-31.0); Mean Corpuscular Volume 96.9 fL (78.0-98.0); Mean Platelet Volume 7.3 fL (7.4-10.4); Platelet Count 183 thou/uL (130-400); RBC Distribution Width 13.9 % (11.5-14.5); Red Blood Cell (RBC) Count 3.91 mill/uL (4.20-5.40); White Blood Cell (WBC) Count 7.7 thou/uL (4.8-10.8)
[2018-12-31 15:07] LABS: ALT (SGPT) 37 U/L (8-55); AST (SGOT) 35 U/L (5-34); Albumin 3.6 g/dL (3.4-4.8); Alkaline Phosphatase 60 U/L (40-150); Anion Gap 13 mmol/L (10-20); BUN (Urea Nitrogen) 13 mg/dL (9.8-20.1); Bilirubin, Total 0.9 mg/dL (0.2-1.2); Calc. Creatinine Clearance 0 mL/min (70-130); Calcium 9.4 mg/dL (7.8-10.44); Carbon Dioxide 24 mmol/L (23-31); Chloride 107 mmol/L (98-107); Estimated GFR-MDRD 73; Globulin 2.8 g/dL (2.4-3.5); Glucose 91 mg/dL (83-110); Potassium 4.3 mmol/L (3.5-5.1); Protein, Total 6.4 g/dL (6.0-8.3); Sodium 140 mmol/L (136-145)
[2018-12-31] MEDS ORDERED: Aspirin Chewable 81 MG TAB ONE (15:39)
[2018-12-31] MEDS ORDERED: Acetaminophen 325 MG TAB PO PRN (15:49)
[2018-12-31] MEDS ORDERED: HYDROcodone/Acetaminophen 5/325 mg Tablet PO PRN (15:49)
[2018-12-31] MEDS ORDERED: Calcium Carbonate 500 MG ChewTAB PO PRN (15:49)
[2018-12-31] MEDS ORDERED: Senokot S 8.6-50 MG TAB PO PRN (15:49)
[2018-12-31] MEDS ORDERED: Docusate 100 MG CAP PO PRN (15:51)
[2018-12-31] MEDS ORDERED: hydrALAZINE 20 MG/ML VIAL SLOW IVP PRN ×2 (15:51→21:20)
[2018-12-31] MEDS ORDERED: diphenhydrAMINE 25 MG CAP PO PRN (15:51)
[2018-12-31] MEDS ORDERED: Meclizine HCl 25 MG TAB PO PRN (16:02)
--- NOTE | 2018-12-31 16:14 | PDOC.HHP ---
Hospitalist HPI - History of Present Illness Chest pain and shortness of breath History of Present Illness: Very pleasant 73 year old white female with PMHx of Afib on Eliquis, cardiomyopathy, HTN, CAD, HLD, BHARAT on CPAP and depression presents with worsening chest pain and shortness of breath. Patient developed acute onset of chest pain last night when she was out to dinner. Patient had worsening chest pain and shortness of breath with exertion. There was some improvement with rest however it did not darren completely. Pain is left of mid sternum. Pain does not radiate to the back, arm, or jaw. No associated diaphoresis, nausea, vomiting, or palpitations. Denies vomiting or diarrhea. Denies worening LE edema though her legs are chronically swollen and she wears compression stalkings regularly. Patient goes to Cardiac rehab and has been doing well per patient. 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 Will admit to medical unit with telemetry for further evaluation. Hospitalist ROS - Review of Systems Constitutional: reports: weakness (Generalized). denies: fever, chills, sweats Eyes: denies: pain, vision change, redness ENT: denies: ear pain, ear discharge, mouth pain, throat pain, throat swelling Respiratory: reports: shortness of breath, SOB with excertion. denies: cough, hemoptysis, sputum, wheezing Cardiovascular: reports: chest pain, edema. denies: palpitations Gastrointestinal: denies: nausea, vomitting, abdominal pain, diarrhea Genitourinary: denies: dysuria, frequency, incontinence Musculoskeletal: denies: neck pain, shoulder pain Skin: denies: rash, lesions Neurological: reports: weakness (Generalized). 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 denies: Inflam bowel disease Heme/Onc: denies: Cancer Hepatobiliary: denies: Hep A/B/C Psych: reports: Depression Musculoskeletal: reports: Osteoarthritis Rheumatologic: denies: Rheumatoid arthritis Infectious Disease: denies: HIV Renal/: denies: Chronic renal failure Endocrine: denies: Diabetes Dermatology: denies: Melanoma, Basal cell - Past Surgical History Past Surgical History: reports: Cataract Removal, Other (Lap band Stent) - Family History Family History: reports: hypertension - Social History Smoking Status: Never smoker Alcohol: reports: None Drugs: reports: none - Exam General Appearance: NAD, awake alert Eye: PERRL, anicteric sclera ENT: no oropharyngeal lesions, moist mucosa Neck: supple, symmetric, no lymphadenopathy Heart: no murmur, no gallops, no rubs Heart - other findings: S1 and S2 present. Bradycardia with regular rhythm Respiratory: CTAB, no wheezes, no rales, no ronchi Gastrointestinal: soft, non-tender, non-distended, normal bowel sounds, no guarding, no rigidity Gastrointestinal - other findings: Obese Extremities: 1+ LE edema Skin: no lesions, no rashes Neurological: CN's grossly intact, no focal deficits, no new deficit Musculoskeletal: generalized weakness Psychiatric: normal affect, A&O x 3 Hospitalist Results - Labs Result Diagrams: 12/31/18 14:35 12/31/18 14:35 Lab results: WBC 7.7 thou/uL (4.8-10.8) 12/31/18 14:35 Hgb 12.8 g/dL (12.0-16.0) 12/31/18 14:35 Hct 37.9 % (36.0-47.0) 12/31/18 14:35 MCV 96.9 fL (78.0-98.0) 12/31/18 14:35 Plt Count 183 thou/uL (130-400) 12/31/18 14:35 Neutrophils % 70.2 % (42.0-75.0) 12/31/18 14:35 Sodium 140 mmol/L (136-145) 12/31/18 14:35 Potassium 4.3 mmol/L (3.5-5.1) 12/31/18 14:35 Chloride 107 mmol/L (98-107) 12/31/18 14:35 Carbon Dioxide 24 mmol/L (23-31) 12/31/18 14:35 BUN 13 mg/dL (9.8-20.1) 12/31/18 14:35 Creatinine 0.77 mg/dL (0.6-1.1) 12/31/18 14:35 Glucose 91 mg/dL (83-110) 12/31/18 14:35 Calcium 9.4 mg/dL (7.8-10.44) 12/31/18 14:35 Total Bilirubin 0.9 mg/dL (0.2-1.2) 12/31/18 14:35 AST 35 U/L (5-34) H 12/31/18 14:35 ALT 37 U/L (8-55) 12/31/18 14:35 Alkaline Phosphatase 60 U/L (40-150) 12/31/18 14:35 Troponin I Less than 0.010 ng/mL (< 0.028) 12/31/18 14:35 B-Natriuretic Peptide 264.2 pg/mL (0-100) H 12/31/18 14:35 Serum Total Protein 6.4 g/dL (6.0-8.3) 12/31/18 14:35 Albumin 3.6 g/dL (3.4-4.8) 12/31/18 14:35 - Radiology Interpretation Chest x-ray Status: image reviewed by nm Hospitalist H&P A/P - Problem (1) Chest pain Code(s): R07.9 - CHEST PAIN, UNSPECIFIED Status: Acute Qualifiers: Ischemic chest pain type: other angina pectoris type (2) Acute respiratory failure with hypoxia Code(s): J96.01 - ACUTE RESPIRATORY FAILURE WITH HYPOXIA Status: Acute (3) Atrial fibrillation with RVR Code(s): I48.91 - UNSPECIFIED ATRIAL FIBRILLATION Status: Resolved (4) CAD (coronary artery disease) Code(s): I25.10 - ATHSCL HEART DISEASE OF [place] CORONARY ARTERY W/O ANG PCTRS Status: Chronic (5) Dyslipidemia Code(s): E78.5 - HYPERLIPIDEMIA, UNSPECIFIED Status: Chronic (6) GERD (gastroesophageal reflux disease) Code(s): K21.9 - GASTRO-ESOPHAGEAL REFLUX DISEASE WITHOUT ESOPHAGITIS Status: Chronic (7) Hypertension Code(s): I10 - ESSENTIAL (PRIMARY) HYPERTENSION Status: Chronic (8) Morbid obesity with BMI of 45.0-49.9, adult Code(s): E66.01 - MORBID (SEVERE) OBESITY DUE TO EXCESS CALORIES; Z68.42 - BODY MASS INDEX (BMI) 45.0-49.9, ADULT Status: Chronic (9) BHARAT (obstructive sleep apnea) Code(s): G47.33 - OBSTRUCTIVE SLEEP APNEA (ADULT) (PEDIATRIC) Status: Chronic - Plan Plan: Plan: Admit to med/ tel Morphine, oxygen, nitrates, ASA NM stress test in the AM to rule out reversible ischemia Echocardiogram to evel CHF or valvular pathology EKG with non no specific ST-T segment abnormalities Neg troponin CXR without acute cardiothoracic process BNP mildly elevated though, no overt CHF on CXR, chronic LE edema Will give one dose of IV lasix Continuous telemetry to monitor for arrhythmia Pending above work up consider cardiology consult Continue home meds as able GI and DVT PPX
[2018-12-31] MEDS ORDERED: Furosemide 20 MG/2 ML VIAL SLOW IVP SCH (16:45)
[2018-12-31 18:06] LABS: Troponin I 0.011 ng/mL (< 0.028)
[2018-12-31] MEDS ORDERED: Rosuvastatin 10 MG TAB PO SCH (21:00)
[2018-12-31 21:11] LABS: Troponin I Less than 0.010 ng/mL (< 0.028)
[2018-12-31] MEDS: Famotidine 20 MG TAB PO SCH (22:05)
[2018-12-31] MEDS: Apixaban 5 MG TAB PO SCH (22:06)
[2018-12-31] MEDS: Isosorbide Dinitrate 20 MG TAB PO SCH (22:07)
[2018-12-31] MEDS: Lisinopril 20 MG TAB PO SCH (22:08)
[2019-01-01 00:28] VITALS: BMI 46.0
[2019-01-01] MEDS: Nitroglycerin 0.4 MG TAB (25 Tab Bottle) SL PRN ×3 (00:55→01:08)
[2019-01-01 02:10] LABS: Troponin I Less than 0.010 ng/mL (< 0.028)
[2019-01-01 03:17] LABS: Bacteria/HPF 4+ HPF (None Seen); Bilirubin Negative (Negative); Blood, Urine Negative (Negative); Clarity Clear (Clear); Glucose, Urine (Dipstick) Normal (Negative); Leukocyte 250 Leu/uL (Negative); Nitrite 2+ (Negative); Protein, Urine (Dipstick) 20 mg/dL (Neg-Trace); RBC/HPF 0-3 HPF (0-3); Squamous Epithelial 0-3 HPF (0-3); WBC/HPF 21-50 HPF (0-3)
[2019-01-01 03:18] LABS: Urine Culture Reflex Yes Yes
[2019-01-01] MEDS ORDERED: cefTRIAXone\\ROCEPHIN 1 GM in Sodium Chloride 0.9% 100 ML IVPB SCH (04:00)
[2019-01-01] MEDS: Lisinopril 20 MG TAB PO SCH (04:54)
[2019-01-01 05:25] LABS: #Eosinphils 0.2 thou/uL (0.0-0.7); #Lymphocytes 1.2 thou/uL (1.20-3.40); #Monocytes 0.7 thou/uL (0.11-0.59); #Neutrophils 3.4 thou/uL (1.40-6.50); %Basophils 0.8 % (0.0-1.0); %Eosinophils 3.1 % (0.0-10.0); %Monocytes 12.1 % (0.0-10.0); %Neutrophils 62.1 % (42.0-75.0); Hemoglobin 12.8 g/dL (12.0-16.0); Mean Corpuscular HGB CONC 32.8 g/dL (32.0-36.0); Mean Corpuscular Hemoglobin 32.3 pg (27.0-31.0); Mean Corpuscular Volume 98.4 fL (78.0-98.0); Mean Platelet Volume 7.2 fL (7.4-10.4); Platelet Count 170 thou/uL (130-400); RBC Distribution Width 13.9 % (11.5-14.5); Red Blood Cell (RBC) Count 3.96 mill/uL (4.20-5.40); White Blood Cell (WBC) Count 5.4 thou/uL (4.8-10.8)
[2019-01-01 05:49] LABS: Anion Gap 12 mmol/L (10-20); BUN (Urea Nitrogen) 14 mg/dL (9.8-20.1); Calc. Creatinine Clearance 249 mL/min (70-130); Calcium 8.8 mg/dL (7.8-10.44); Carbon Dioxide 23 mmol/L (23-31); Chloride 109 mmol/L (98-107); Estimated GFR-MDRD 82; Glucose 84 mg/dL (83-110); Potassium 3.5 mmol/L (3.5-5.1); Sodium 140 mmol/L (136-145)
[2019-01-01 05:50] LABS: Troponin I Less than 0.010 ng/mL (< 0.028)
[2019-01-01] MEDS ORDERED: ADENOSINE 60 MG/20 ML VIAL ONE (07:21)
[2019-01-01] MEDS: Apixaban 5 MG TAB PO SCH (08:21)
[2019-01-01] MEDS: Famotidine 20 MG TAB PO SCH (08:21)
[2019-01-01] MEDS ORDERED: Aspirin Chewable 81 MG TAB PO SCH (09:00)
[2019-01-01] MEDS ORDERED: Multivit, Therapeutic 1 TAB PO SCH (09:00)
[2019-01-01] MEDS ORDERED: Amiodarone 200 MG TAB PO SCH (09:00)
[2019-01-01] MEDS ORDERED: Furosemide 20 MG TAB PO SCH (09:00)
[2019-01-01 12:26] VITALS: TEMP 97.9
[2019-01-01] MEDS: Isosorbide Dinitrate 20 MG TAB PO SCH (12:43)
--- NOTE | 2019-01-01 13:07 | NM ---
Exam: Nuclear medicine cardiac SPECT with EF and wall motion, stress only: HISTORY: Chest pain Exam was performed with adenosine protocol Patient was injected with 30.8 mCi technetium 99m sestamibi intravenously. No scan evidence for infarct or ischemia patient on short axis, vertical long axis, and horizontal lo ng axis. LHR: 0.20 EDV: 84 mL EF: 77% Unremarkable wall motion IMPRESSION: Unremarkable stress only cardiac SPECT with EF and wall motion.
[2019-01-01 14:42] VITALS: BP 162/80
--- NOTE | 2019-01-01 17:21 | DIS ---
DATE OF ADMISSION: 12/31/2018 DATE OF DISCHARGE: 01/01/2019 REASON FOR HOSPITALIZATION: Chest pain. SIGNIFICANT FINDINGS: The patient with chest pain and cardiac history was concerned for acute coronary syndrome, however, this was ruled out. PROCEDURES PERFORMED/TREATMENTS RENDERED: The patient with chest pain and shortness of breath. There were concerns for acute coronary syndrome and a nuclear medicine stress test was performed, please see full report for details-no reversible ischemia was identified and normal wall motion was observed. The patient received additional dose of IV Lasix therapy, which caused the patient's shortness of breath and chest discomfort to resolve completely. CONDITION ON DISCHARGE: Stable. SPECIFIC INSTRUCTIONS FOR THE PATIENT/FAMILY: 1. The patient is to take a full course of oral antibiotics for urinary tract infection. 2. The patient is recommended to take higher dose of furosemide/Lasix 40 mg one tablet p.o. daily. 3. The patient is recommended to continue all other home medications without changes. 4. The patient is to follow up with primary care physician in the next 5 to 7 days. 5. The patient is recommended to follow up with Cardiology in the next 1 to 2 weeks. HOME MEDICATIONS: Please see full list for details with the following changes. 1. Furosemide 40 mg one tablet p.o. daily to be taken instead of the patient's 20 mg tablet daily. 2. Cefpodoxime 200 mg one tablet p.o. b.i.d. for 6 days, #12 tablets. 3. No other changes to home medications. DISCHARGE DIAGNOSES: 1. Chest pain, ruled out acute coronary syndrome. 2. Congestive heart failure with acute exacerbation. 3. Volume overload. 4. Chronic angina, on Ranexa. 5. Cardiomyopathy with diastolic dysfunction. 6. Hypertension. 7. Gastroesophageal reflux disease. 8. Atrial fibrillation, on Eliquis. 9. Osteoarthritis. HOSPITAL COURSE: Ms. Esquivel is a very pleasant 73-year-old female, who presented to [facility] on 12/31/2018, with chest pain. The patient with history of coronary artery disease with stent placement in the past, who does have chronic angina and is on Ranexa therapy at baseline. The patient with atrial fibrillation, who is on Eliquis; atrial fibrillation is paroxysmal and she has had episodes of RVR, which have required cardioversion earlier this year. The patient states that she has become more short of breath with these chest pain episodes and she does have a little more swelling in her legs. The patient does wear compression stockings in the legs and this does help her on a day-to-day basis. The patient is continuing to follow up with Cardiology in the outpatient clinic and she is currently doing cardiac rehab. The patient does have a few more sessions of cardiac rehab and she would like to continue these. With the patient's history, concern for reversible ischemia was considered and a nuclear medicine stress test was ordered, please see full report for details. The patient with no reversible ischemia seen on nuclear medicine stress test. The patient's chest pain and shortness of breath have resolved with the addition of IV Lasix. The patient was changed from oral Lasix 20 mg daily to 40 mg daily to avoid volume overload. I cautioned the patient on volume status and stated that her shortness of breath will worsen if she has too much water. I also cautioned the patient that too little water can cause renal dysfunction and to avoid dehydration completely. The patient was also found to have urinary tract infection, was started on antibiotic therapy. The patient recommended safe for discharge with close followup in the outpatient setting with primary care physician and Cardiology in the next 1 to 2 weeks. The patient is recommended to take all medications as outlined, to be re-evaluated by primary care physician and Cardiology. The patient recommended to continue with cardiac rehab in the outpatient setting. The patient is recommended to return to acute care hospital immediately if signs or symptoms return, worsen, or any other new symptoms occur. Greater than 34 minutes spent coordinating care and discharge planning. Job ID: [id number] MTDD
--- NOTE | 2019-01-04 16:28 | EKG ---
Test Reason : STAT Blood Pressure : / mmHG Vent. Rate : 059 BPM Atrial Rate : 059 BPM P-R Int : 156 ms QRS Dur : 090 ms QT Int : 466 ms P-R-T Axes : 052 027 054 degrees QTc Int : 461 ms Sinus bradycardia RSR' or QR pattern in V1 suggests right ventricular conduction delay Anterior infarct , age undetermined cannot be excluded Abnormal ECG Confirmed by TONY GUZMAN ([id number]) on 01/04/2019 4:28:23 PM Referred By: CHING Confirmed By:TONY GUZMAN
== END 2019-01-01 16:00 | disposition home or self-care (01) ==
LOC: ERS 13:50 → 2SW 16:09
PROVIDERS: ADMIT Internal Medicine; ATTEND Internal Medicine
DX: I25.118 Atherosclerotic heart disease of native coronary artery with other forms of angina pectoris (principal); I11.0 Hypertensive heart disease with heart failure; I50.31 Acute diastolic (congestive) heart failure; I42.9 Cardiomyopathy, unspecified; I25.10 Atherosclerotic heart disease of native coronary artery without angina pectoris; E78.5 Hyperlipidemia, unspecified; G47.33 Obstructive sleep apnea (adult) (pediatric); F32.9 Major depressive disorder, single episode, unspecified; I48.0 Paroxysmal atrial fibrillation; J96.01 Acute respiratory failure with hypoxia; E87.70 Fluid overload, unspecified; E66.01 Morbid (severe) obesity due to excess calories; Z68.42 Body mass index [BMI] 45.0-49.9, adult; Z79.01 Long term (current) use of anticoagulants; Z79.82 Long term (current) use of aspirin; Z79.899 Other long term (current) drug therapy; Z91.018 Allergy to other foods; Z99.89 Dependence on other enabling machines and devices
CPT/HCPCS: 71045; 78452; 80048; 80053; 81001; 82962; 83880; 84484 ×4; 85025 ×2; 87077; 87086; 87186; 93005 ×2; 93017; 93306; 96374; 96375; 99285; A9500; G0378 ×3; 36415; 36416; 93010; J0153; J0360; J0696; J1940; J3490

== ENCOUNTER 2019-03-28 12:40 | Outpatient (CLI) | payer MEDICARE ==
--- NOTE | 2019-03-28 15:31 | MRI ---
MRI BRAIN WITH AND WITHOUT CONTRAST: DATE: 03/28/2019. HISTORY: A 73-year-old year-old female with headache. COMPARISON: 01/17/2017. TECHNIQUE: Multiple sequences obtained in axial, sagittal, and coronal planes; pre and post IV injection of gado linium-based contrast agent. FINDINGS: Approximately 1.9 x 1.8 x 1.8 cm enhancing round extraaxial calcified mass at the right cerebral conv exity chronically indents the right postcentral gyrus but does not cause adjacent vasogenic edema. U nchanged. Moderate degree of chronic ischemic white matter changes of the cerebrum and bry, without major inte rval change. 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 Otherwise, no other areas of abnormal intraaxial enhancement. No obstructive hydrocephalus. No recent intraax ial hemorrhage. No restricted diffusion. No mass effect, midline shift, or extraaxial fluid collect ion. No interval change. IMPRESSION: 1. A 1.8 cm meningioma at right parasagittal convexity. 2. Moderate chronic ischemic white matter changes. 3. No interval change since 01/17/2017. RICKI Almaraz POS: JONNY
== END 2019-03-28 12:41 | disposition home or self-care (01) ==
LOC: SCSMRI 12:40
PROVIDERS: ATTEND Psychiatry & Neurology Neurology
DX: R51 Headache (principal); D32.9 Benign neoplasm of meninges, unspecified
CPT/HCPCS: 70553; 82565

== ENCOUNTER 2019-05-02 04:03 | Observation (INO) | payer MEDICARE ==
[2019-05-02 06:32] LABS: Troponin I Less than 0.010 ng/mL (< 0.028)
[2019-05-02] MEDS ORDERED: Nitroglycerin 0.4 MG TAB (25 Tab Bottle) PO PRN (06:51)
[2019-05-02] MEDS ORDERED: Acetaminophen 325 MG TAB PO PRN (06:51)
[2019-05-02] MEDS ORDERED: Calcium Carbonate 500 MG ChewTAB PO PRN (06:51)
[2019-05-02] MEDS ORDERED: Loratadine 10 MG TAB PO PRN (07:48)
[2019-05-02] MEDS ORDERED: Bisacodyl 10 MG SUPP PR PRN (07:48)
[2019-05-02] MEDS ORDERED: Metoclopramide HCl 10 MG/2 ML VIAL IVP PRN (07:48)
[2019-05-02] MEDS ORDERED: Loperamide HCl 2 MG CAP PO PRN (07:48)
[2019-05-02] MEDS ORDERED: hydrALAZINE 20 MG/ML VIAL SLOW IVP PRN (07:48)
[2019-05-02] MEDS ORDERED: HYDROcodone/Acetaminophen 5/325 mg Tablet PO PRN (07:48)
[2019-05-02] MEDS ORDERED: Sodium Chloride 0.65% Nasal 44 ML BOT EA NARE PRN (07:48)
[2019-05-02] MEDS ORDERED: Senokot S 8.6-50 MG TAB PO PRN (07:48)
[2019-05-02] MEDS ORDERED: Cepastat Lozenges 1 LOZ PO PRN (07:48)
[2019-05-02] MEDS ORDERED: Diabetic Tussin 200 MG/10 ML UDCUP PO PRN (07:48)
[2019-05-02] MEDS ORDERED: Famotidine 20 MG TAB ONE (10:22)
[2019-05-02] MEDS: Famotidine 20 MG TAB PO SCH ×2 (10:25→20:41)
[2019-05-02 12:46] VITALS: BMI 45.5
--- NOTE | 2019-05-02 13:43 | HP ---
PRIMARY CARE PHYSICIAN: Parrish Mcbride MD REASON FOR ADMISSION: Chest pain and dyspnea. HISTORY OF PRESENT ILLNESS: A 73-year-old female who presented to emergency room because she was having chest pain whenever she was taking deep breath associated with shortness of breath. The patient denies any associated palpitation, dizziness, or syncope. She denies any orthopnea or PND. She denies any exertion related chest pain, palpitation, or shortness of breath. The patient was worried about that she had atrial fibrillation and required cardioversion and that is why she thought that might be causing her symptoms and that is why she came to emergency room for evaluation. In the emergency room, the patient was in sinus rhythm. The patient hemodynamically stable and her D-dimer and cardiac enzymes were negative. The patient had a cardiac full workup done in December 2018. At that time, stress test was normal and echocardiography was also showed normal EF. At this point, the patient's evaluation at other emergency room and our emergency room so far negative and the patient is also asymptomatic. The patient denies any calf tenderness, lower extremity edema, or hemoptysis. REVIEW OF SYSTEMS: CONSTITUTIONAL: Negative for weight loss or gain, ability to conduct usual activities. SKIN: Negative for rash, itching. EYES: Negative for double vision, pain. ENT/MOUTH: Negative for nose bleeding, neck stiffness, pain, tenderness. CARDIOVASCULAR: Negative for palpitations, dyspnea on exertion, orthopnea. RESPIRATORY: Negative for shortness of breath, wheezing, cough, hemoptysis, fever or night sweats. GASTROINTESTINAL: Negative for poor appetite, abdominal pain, heartburn, nausea , vomiting, constipation, or diarrhea. GENITOURINARY: Negative for urgency, frequency, dysuria, nocturia. MUSCULOSKELETAL: Negative for pain, swelling. NEUROLOGIC/PSYCHIATRIC: Negative for anxiety, depression. ALLERGY/IMMUNOLOGIC: Negative for skin rash, bleeding tendency. Please see my HPI for pertinent positives and negatives. All other review of systems reviewed and negative except as mentioned in HPI. PAST MEDICAL HISTORY: Coronary artery disease with history of stent placement, bypass, diabetes type 2, hypertension, dyslipidemia, history of meningioma treated with Gamma Knife, paroxysmal atrial fibrillation, gastroesophageal reflux disease, and chronic anticoagulation. PAST SURGICAL HISTORY: Cardioversion, gastric lap-band, angioplasty, hernia repair, right knee arthroscopy, right arm surgery, hammertoe repaired. PAST PSYCHIATRIC HISTORY: Anxiety and depression. FAMILY HISTORY: No strong family history of CAD, CVA or cancer. CURRENT HOME MEDICATIONS: 1. Crestor 10 mg daily. 2. Venlafaxine 75 mg twice daily. 3. Imdur 30 mg twice daily. 4. Ranexa 1 g p.o. b.i.d. 5. Metoprolol succinate 50 mg two tablets daily. 6. Lisinopril 20 mg twice daily. 7. Aspirin 81 mg daily. 8. Eliquis 5 mg twice daily. 9. Lasix 20 mg daily. 10. Rabeprazole 20 mg daily. 11. Amiodarone 200 mg p.o. daily. 12. Multivitamin one tablet p.o. daily. EMERGENCY ROOM COURSE: Reviewed. ALLERGIES: NO KNOWN DRUG ALLERGIES, BUT THE PATIENT IS ALLERGIC TO STRAWBERRY. SOCIAL HISTORY: The patient lives at home by herself. No history of tobacco, alcohol, or illicit drug abuse. PHYSICAL EXAMINATION: VITAL SIGNS: On arrival, blood pressure 162/57, pulse 61, respiratory rate 23, temperature 98.7, saturation 98%, and weight 101.6 kg. GENERAL: The patient is currently alert, awake, no acute distress. HEENT: Head; normocephalic, atraumatic. Eyes; pupils round, reactive to light. Extraocular muscle intact. ENT, oropharynx within normal limits. Moist mucous membranes. No oral lesion. No pharyngeal erythema. No exudate. NECK: Supple. No JVD. No meningeal signs of irritation. LUNGS: Clear to auscultation without any rhonchi or rales. CARDIAC: S1, S2. Regular. No murmur. No gallop. No rub. ABDOMEN: Soft, bowel sounds present, nontender, nondistended. No organomegaly. No mass. EXTREMITIES: No edema. Good distal pulsation. NEUROLOGIC: Nonfocal examination. SIGNIFICANT LABORATORY DATA: CBC; WBC 9.4, hemoglobin 13.4, platelet 184. BMP; sodium 142, potassium 3.6, chloride 110, carbon dioxide 24, BUN 21, creatinine 0.74, glucose 106, calcium 8.9. LFTs; AST 32, ALT 40, alkaline phosphatase 54, albumin 3.6. Troponin negative. BNP 217.1, glucose 102. ASSESSMENT/PLAN: 1. Chest pain. The patient's chest pain description is atypical, it describes pleuritic. Her chest x-ray is negative. The patient is already on anticoagulation therapy. Her chest x-ray suggestive of volume overload. At this point, I am suspecting that the patient has diastolic heart failure that contributing to her chest discomfort. We will continue with Lasix 40 mg IV b.i.d. and we will check D-dimer and based on that, we will decide further investigation. We will continue with aspirin 81 mg p.o. daily. 2. Coronary artery disease. We will continue Toprol-XL 100 mg p.o. daily. 3. Paroxysmal atrial fibrillation. We will continue amiodarone 200 mg p.o. daily and Eliquis 5 mg p.o. b.i.d. 4. Coronary artery disease. Continue Ranexa 1 g p.o. b.i.d. 5. Dyslipidemia. Continue Crestor 10 mg p.o. at bedtime. 6. Anxiety and depression. Continue venlafaxine 75 mg p.o. twice daily. 7. Morbid obesity with BMI 45. Dietary education given. Weight loss education given. 8. Deep venous thrombosis prophylaxis. The patient is already on Eliquis therapy. 9. GI prophylaxis. Protonix 40 mg p.o. daily. CODE STATUS: The patient is full code. DISPOSITION PLAN: Based on clinical course, we will monitor on telemetry floor for any kind of arrhythmia. Plan of care discussed with the patient in detail. Job ID: [id number] MTDD
[2019-05-02] MEDS: Furosemide 40 MG/4 ML VIAL SLOW IVP SCH (15:07)
[2019-05-02] MEDS ORDERED: Metolazone 5 MG TAB PO SCH (17:45)
[2019-05-02] MEDS ORDERED: Furosemide 40 MG/4 ML VIAL SLOW IVP SCH (17:45)
[2019-05-02 18:02] LABS: Anion Gap 15 mmol/L (10-20); BUN (Urea Nitrogen) 17 mg/dL (9.8-20.1); Calc. Creatinine Clearance 105 mL/min (70-130); Calcium 9.2 mg/dL (7.8-10.44); Carbon Dioxide 24 mmol/L (23-31); Chloride 106 mmol/L (98-107); Estimated GFR-MDRD 75; Glucose 96 mg/dL (83-110); Potassium 3.9 mmol/L (3.5-5.1); Sodium 141 mmol/L (136-145)
[2019-05-02] MEDS: Isosorbide Dinitrate 20 MG TAB PO SCH (20:41)
[2019-05-02] MEDS: Apixaban 5 MG TAB PO SCH (20:42)
[2019-05-02] MEDS: Lisinopril 20 MG TAB PO SCH (20:42)
[2019-05-02] MEDS ORDERED: Rosuvastatin 10 MG TAB PO SCH (21:00)
[2019-05-03] MEDS: Furosemide 40 MG/4 ML VIAL SLOW IVP SCH (05:38)
[2019-05-03 05:40] LABS: Hemoglobin 12.5 g/dL (12.0-16.0); Platelet Count 163 thou/uL (130-400)
[2019-05-03 08:00] VITALS: BP 124/61; TEMP 98.1
[2019-05-03] MEDS ORDERED: Amiodarone 200 MG TAB PO SCH (09:00)
[2019-05-03] MEDS ORDERED: Multivit, Therapeutic 1 TAB PO SCH (09:00)
[2019-05-03] MEDS ORDERED: Aspirin Chewable 81 MG TAB PO SCH (09:00)
[2019-05-03] MEDS: Apixaban 5 MG TAB PO SCH (09:42)
[2019-05-03] MEDS: Isosorbide Dinitrate 20 MG TAB PO SCH (09:43)
[2019-05-03] MEDS: Lisinopril 20 MG TAB PO SCH (09:43)
[2019-05-03] MEDS: Famotidine 20 MG TAB PO SCH (09:44)
--- NOTE | 2019-05-03 11:24 | DIS ---
DATE OF ADMISSION: 05/02/2019 DATE OF DISCHARGE: 05/03/2019 PRIMARY CARE PHYSICIAN: Parrish Mcbride MD DISCHARGE DISPOSITION: Home. PRIMARY DISCHARGE DIAGNOSES: 1. Chest pain, ruled out acute coronary syndrome. 2. Acute on chronic diastolic congestive heart failure. SECONDARY DISCHARGE DIAGNOSES: 1. Morbid obesity with BMI of 43. 2. Obstructive sleep apnea, on CPAP. 3. Paroxysmal atrial fibrillation. 4. Chronic anticoagulation. 5. Hypertension. 6. Gastroesophageal reflux disease. 7. Dyslipidemia. 8. Coronary artery disease. 9. Anxiety and depression. PRIMARY PROCEDURE/OPERATION: None. RADIOLOGICAL INVESTIGATION: Chest x-ray done at [facility] showed finding suggestive of congestive heart failure. SIGNIFICANT LABS: Hemoglobin 12.5, platelet 163, hematocrit 37.4. D-dimer 0.43. Sodium 141, potassium 3.9, BUN 17, creatinine 0.75, calcium 9.2. Troponin negative x3. DISCHARGE MEDICATION: 1. Amiodarone 200 mg p.o. daily. 2. Aspirin 81 mg daily. 3. Imdur 30 mg b.i.d. 4. Keppra 500 mg p.o. daily. 5. Lisinopril 20 mg b.i.d. 6. Toprol-XL 100 mg daily. 7. Multivitamin 1 tablet daily. 8. AcipHex (rabeprazole) 20 mg daily. 9. Ranexa 1000 mg b.i.d. 10. Crestor 10 mg daily. 11. Effexor 75 mg b.i.d. 12. Eliquis 5 mg b.i.d. 13. Lasix 40 mg p.o. b.i.d. CONTRAINDICATION: None. CODE STATUS: Full code. INPATIENT PHARMACY OPERATIONS COORDINATOR: None. ALLERGIES: NO KNOWN DRUG ALLERGIES. DISCHARGE PLAN: Posthospital, the patient will follow up with primary care physician and the patient is instructed to follow up with Dr. 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 HOSPITAL COURSE: A 73-year-old female who initially went to [facility] for evaluation of chest pain. She was having shortness of breath as well as when she was taking deep breaths, she was feeling chest discomfort. Her D-dimer was negative. Her chest x-ray on admission was consistent with CHF. The patient also had slightly elevated BNP. The patient was transferred to our hospital and we admitted for observation status. We treated her with IV Lasix with significant improvement. The patient's home medication was continued while in hospital. On discharge, we also continued similar home medication and we increased the Lasix dose to 40 mg b.i.d. Necessary patient education about heart failure and fluid restriction and salt restriction provided to the patient before discharge while in hospital by me. The patient is ambulatory, tolerating p.o. well and she is on room air and without any symptoms. Telemetry did not show any arrhythmia. The patient already had recent full workup done including stress test and echocardiography and that is why she did not require any further investigation. The patient will follow up with primary care physician and Cardiology. The patient is seen and examined at bedside today. PHYSICAL EXAMINATION: VITAL SIGNS: Her vitals are stable. Temperature 98.1, pulse 60, respiratory rate 16, saturation 96%, blood pressure 124/61, weight 213 pounds. GENERAL: The patient is alert, oriented, in no acute distress. HEENT: Head normocephalic, atraumatic. NECK: Supple. No JVD. No meningeal signs of irritation. LUNGS: Clear to auscultation without any rhonchi or rales. CARDIAC: S1 and S2. Regular without any murmur. No gallop. No rub. ABDOMEN: Soft. Bowel sounds present. Nontender. Nondistended. No organomegaly. No mass. EXTREMITIES: No edema. NEUROLOGIC: Nonfocal examination. Job ID: [id number]
== END 2019-05-03 11:44 | disposition home or self-care (01) ==
LOC: ERS 04:03 → ERHOLD 05:22 → 2SW 12:38
PROVIDERS: ADMIT Internal Medicine; ATTEND Internal Medicine
DX: R07.81 Pleurodynia (principal); I11.0 Hypertensive heart disease with heart failure; I50.33 Acute on chronic diastolic (congestive) heart failure; E11.9 Type 2 diabetes mellitus without complications; E66.01 Morbid (severe) obesity due to excess calories; E78.5 Hyperlipidemia, unspecified; G47.33 Obstructive sleep apnea (adult) (pediatric); I25.10 Atherosclerotic heart disease of native coronary artery without angina pectoris; I48.0 Paroxysmal atrial fibrillation; K21.9 Gastro-esophageal reflux disease without esophagitis; F41.9 Anxiety disorder, unspecified; F32.9 Major depressive disorder, single episode, unspecified; Z68.41 Body mass index [BMI] 40.0-44.9, adult; Z79.01 Long term (current) use of anticoagulants; Z79.82 Long term (current) use of aspirin; Z79.899 Other long term (current) drug therapy; Z91.018 Allergy to other foods; Z95.5 Presence of coronary angioplasty implant and graft; Z99.89 Dependence on other enabling machines and devices
CPT/HCPCS: 80048; 82565; 82962; 84484; 85014; 85018; 85049; 85379; 93005; 94660; 96374; 96376 ×2; 99285; G0378 ×3; 36415; 36416; J1940

== ENCOUNTER 2020-02-21 14:43 | Inpatient (IN) | payer MEDICARE, OTHER ==
--- NOTE | 2020-02-21 15:32 | RAD ---
EXAM: Single view of the chest HISTORY: Chest pain COMPARISON: 02/16/2020 FINDINGS: Single view of the chest shows an enlarged but stable cardiomediastinal silhouette. There i s no evidence of consolidation, mass, or pleural effusion. Degenerative changes are seen in the spine. IMPRESSION: No evidence of acute cardiopulmonary disease
[2020-02-21 15:41] LABS: #Eosinphils 0.3 thou/uL (0.0-0.7); #Lymphocytes 1.2 thou/uL (1.20-3.40); #Monocytes 0.6 thou/uL (0.11-0.59); #Neutrophils 3.6 thou/uL (1.40-6.50); %Basophils 0.2 % (0.0-1.0); %Eosinophils 4.9 % (0.0-10.0); %Lymphocytes 21.9 % (21.0-51.0); %Monocytes 9.8 % (0.0-10.0); %Neutrophils 63.3 % (42.0-75.0); Hemoglobin 13.1 g/dL (12.0-16.0); Mean Corpuscular HGB CONC 33.2 g/dL (32.0-36.0); Mean Corpuscular Hemoglobin 33.1 pg (27.0-31.0); Mean Corpuscular Volume 99.6 fL (78.0-98.0); Mean Platelet Volume 7.3 fL (7.4-10.4); Platelet Count 201 thou/uL (130-400); RBC Distribution Width 11.8 % (11.5-14.5); Red Blood Cell (RBC) Count 3.96 mill/uL (4.20-5.40); White Blood Cell (WBC) Count 5.7 thou/uL (4.8-10.8)
[2020-02-21 16:03] LABS: ALT (SGPT) 60 U/L (8-55); AST (SGOT) 63 U/L (5-34); Albumin 3.6 g/dL (3.4-4.8); Alkaline Phosphatase 67 U/L (40-110); Anion Gap 12 mmol/L (10-20); BUN (Urea Nitrogen) 20 mg/dL (9.8-20.1); Bilirubin, Total 0.4 mg/dL (0.2-1.2); CK (CPK) 35 U/L (29-168); Calc. Creatinine Clearance 0 mL/min (70-130); Calcium 8.4 mg/dL (7.8-10.44); Carbon Dioxide 28 mmol/L (23-31); Chloride 108 mmol/L (98-107); Estimated GFR-MDRD 59; Globulin 2.8 g/dL (2.4-3.5); Glucose 124 mg/dL (83-110); Lipase 36 U/L (8-78); Potassium 3.6 mmol/L (3.5-5.1); Protein, Total 6.4 g/dL (6.0-8.3); Sodium 144 mmol/L (136-145)
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
[2020-02-21] MEDS ORDERED: Nitroglycerin 0.4 MG TAB (25 Tab Bottle) SL PRN (17:31)
[2020-02-21] MEDS ORDERED: Ondansetron ODT 4 MG TAB PO PRN (17:32)
[2020-02-21] MEDS ORDERED: Senokot S 8.6-50 MG TAB PO PRN (17:32)
[2020-02-21] MEDS ORDERED: Ondansetron PF 4 MG/2 ML Vial IVP PRN (17:32)
[2020-02-21] MEDS ORDERED: Acetaminophen 325 MG TAB PO PRN (17:32)
[2020-02-21] MEDS ORDERED: Calcium Carbonate 500 MG ChewTAB PO PRN (17:32)
[2020-02-21 17:59] VITALS: BMI 42.6
[2020-02-21] MEDS ORDERED: Morphine 2 MG/ML VIAL SLOW IVP PRN (17:59)
[2020-02-21] MEDS ORDERED: Dextrose 50% Abboject 50 ML SYRINGE SLOW IVP PRN (18:17)
[2020-02-21] MEDS ORDERED: Dextrose 5% in Water 1,000 ML IV PRN (18:17)
[2020-02-21] MEDS ORDERED: HumaLOG 300 UNITS/3 ML VIAL SC PRN ×2 (18:17)
[2020-02-21 19:16] LABS: Troponin I 0.032 ng/mL (< 0.028)
[2020-02-21] MEDS: Nitroglycerin 2% Ointment 1 INCH/1 GM Packet TOP SCH (20:26)
[2020-02-21 22:13] LABS: Troponin I Less than 0.010 ng/mL (< 0.028)
[2020-02-21 23:57] LABS: Bacteria/HPF 4+ HPF (None Seen); Bilirubin Negative (Negative); Blood, Urine Negative (Negative); Clarity Clear (Clear); Glucose, Urine (Dipstick) Normal (Negative); Ketone, Urine Negative (Negative); Leukocyte 250 Leu/uL (Negative); Nitrite 2+ (Negative); Protein, Urine (Dipstick) 10 mg/dL (Neg-Trace); Specific Gravity, Urine 1.025 (1.002-1.036); Squamous Epithelial 0-3 HPF (0-3); Urobilinogen 3 mg/dL (Less than 2); WBC/HPF 21-50 HPF (0-3); pH, Urine 5.5 (5.0-9.0)
[2020-02-22] MEDS: cefTRIAXone\\ROCEPHIN 1 GM in Sodium Chloride 0.9% 100 ML IVPB SCH (02:36)
[2020-02-22 04:47] LABS: #Basophils 0.1 thou/uL (0.0-0.2); #Eosinphils 0.3 thou/uL (0.0-0.7); #Lymphocytes 1.7 thou/uL (1.20-3.40); #Monocytes 0.7 thou/uL (0.11-0.59); #Neutrophils 3.5 thou/uL (1.40-6.50); %Basophils 0.8 % (0.0-1.0); %Eosinophils 4.5 % (0.0-10.0); %Lymphocytes 27.7 % (21.0-51.0); %Monocytes 10.4 % (0.0-10.0); %Neutrophils 56.6 % (42.0-75.0); Hemoglobin 11.2 g/dL (12.0-16.0); Mean Corpuscular HGB CONC 30.8 g/dL (32.0-36.0); Mean Corpuscular Hemoglobin 30.7 pg (27.0-31.0); Mean Corpuscular Volume 99.6 fL (78.0-98.0); Mean Platelet Volume 7.4 fL (7.4-10.4); Platelet Count 172 thou/uL (130-400); RBC Distribution Width 11.9 % (11.5-14.5); Red Blood Cell (RBC) Count 3.66 mill/uL (4.20-5.40); White Blood Cell (WBC) Count 6.2 thou/uL (4.8-10.8)
[2020-02-22 05:12] LABS: Anion Gap 13 mmol/L (10-20); BUN (Urea Nitrogen) 20 mg/dL (9.8-20.1); Calc. Creatinine Clearance 75 mL/min (70-130); Calcium 8.4 mg/dL (7.8-10.44); Carbon Dioxide 23 mmol/L (23-31); Cardiac Risk 2.5 (Less than 4.5); Chloride 108 mmol/L (98-107); Cholesterol 131 mg/dl (< 200 Desired); Estimated GFR-MDRD 57; Glucose 87 mg/dL (83-110); HDL Cholesterol 52 mg/dL (>60 Neg Risk); LDL Cholesterol, Calculated 59 mg/dL; Potassium 3.2 mmol/L (3.5-5.1); Sodium 141 mmol/L (136-145); Triglycerides 102 mg/dL (Less than 150)
[2020-02-22] MEDS: Nitroglycerin 2% Ointment 1 INCH/1 GM Packet TOP SCH ×3 (05:50→21:26)
[2020-02-22] MEDS ORDERED: Apixaban 5 MG TAB PO SCH (09:00)
[2020-02-22] MEDS ORDERED: FLU VACC QS2020-21(65YR UP)/PF 240 MCG/0.7 ML SYRINGE IM ONE (09:00)
[2020-02-22] MEDS ORDERED: Communication Order-Pharmacy FS SCH (09:15)
[2020-02-22] MEDS: Lisinopril 20 MG TAB PO SCH ×2 (09:27→20:02)
[2020-02-22] MEDS: Aspirin 81 mg Enteric Coated Tablet PO SCH (09:27)
[2020-02-22] MEDS: levETIRAcetam 500 mg/5 ml Oral Solution PO SCH (09:28)
[2020-02-22] MEDS: Amiodarone 200 MG TAB PO SCH (09:28)
[2020-02-22] MEDS: Amlodipine 5 MG TAB PO SCH (09:28)
[2020-02-22 11:02] LABS: SARS-CoV-2 MS2 Positive; SARS-CoV-2 N Gene Negative; SARS-CoV-2 S Gene Negative; SARS-CoV-2 by NAA Not Detected (NotDetected); SARS-CoV-2 orf1ab Negative
[2020-02-22] MEDS: Potassium Chloride 20 MEQ TAB PO SCH ×2 (11:32→17:02)
[2020-02-22] MEDS ORDERED: Verapamil 5 MG/2 ML VIAL ONE (12:16)
[2020-02-22] MEDS ORDERED: Midazolam HCl 2 mg/2 ml Vial ONE (12:16)
[2020-02-22] MEDS ORDERED: Heparin 10,000 UNITS/ 10 ML VIAL ONE (12:16)
[2020-02-22] MEDS ORDERED: Fentanyl 100 MCG/2 ML VIAL ONE (12:16)
[2020-02-22] MEDS ORDERED: Nitroglycerin 100MG/250ML BOT 250 ML ONE (12:17)
[2020-02-22] MEDS ORDERED: Lidocaine 1% (PF) 30 ML VIAL ONE (12:17)
[2020-02-22] MEDS ORDERED: Ondansetron PF 4 MG/2 ML Vial ONE (12:53)
--- NOTE | 2020-02-22 13:05 | PDOC.HOSPP ---
- Subjective Encounter Date: 02/22/20 Encounter Time: 09:30 Subjective: Patient seen and examined for Chest discomfort. Denies any new complaints. No new lightheadedness, dizziness or syncope. Feels generally weak and fatigued. - Objective Vital Signs & Weight: Vital Signs (12 hours) Temp Pulse Resp BP Pulse Ox 02/22/20 11:25 97.6 F 58 L 16 133/63 96 02/22/20 07:15 97.5 F L 51 L 16 131/61 97 02/22/20 04:00 97.7 F 52 L 16 122/60 97 Weight Weight 211 lb 3.2 oz I&O: 02/21/20 02/22/20 02/23/20 06:59 06:59 06:59 Intake Total 580 Output Total 200 Balance 380 Result Diagrams: 02/22/20 04:26 02/22/20 04:26 Additional Labs: Accuchecks 02/21/20 20:16 POC Glucose 94 Radiology Reviewed by me: Yes (Chest x-raynegative for infiltrate) EKG Reviewed by me: Yes (Sinus rhythm on telemetry) Hospitalist ROS - Review of Systems Constitutional: reports: weakness. denies: fever, chills, sweats, malaise, other Gastrointestinal: denies: nausea, vomiting, abdominal pain, diarrhea, constipation, melena, hematochezia, other - Medication Medications: Active Medications Generic Name Dose Route Start Last Admin Trade Name Freq PRN Reason Stop Dose Admin Amiodarone HCl 200 mg 02/22/20 09:00 02/22/20 09:28 Amiodarone 200 Mg Tab PO 200 mg DAILY FELICITY Administration Amlodipine Besylate 2.5 mg 02/22/20 09:00 02/22/20 09:28 Amlodipine 5 Mg Tab PO 2.5 mg DAILY FELICITY Administration Apixaban 5 mg 02/22/20 09:00 02/22/20 09:12 Apixaban 5 Mg Tab PO Not Given BID FELICITY Aspirin 81 mg 02/22/20 09:00 02/22/20 09:27 Aspirin 81 Mg Enteric Coated Tablet PO 81 mg DAILY FELICITY Administration Ceftriaxone Sodium 1 gm/ 100 mls @ 200 mls/hr 02/22/20 01:00 02/22/20 02:36 Sodium Chloride IVPB 100 mls 0100 FELICITY Administration Levetiracetam 250 mg 02/22/20 09:00 02/22/20 09:28 Levetiracetam 500 Mg/5 Ml Oral Solution PO 250 mg DAILY FELICITY Administration Lisinopril 20 mg 02/22/20 09:00 02/22/20 09:27 Lisinopril 20 Mg Tab PO 20 mg BID FELICITY Administration Metoprolol Succinate 100 mg 02/22/20 09:00 02/22/20 09:09 Metoprolol Succinate Xl 100 Mg Tab PO Not Given [facility] Nitroglycerin 0.5 inch 02/21/20 22:00 02/22/20 05:50 Nitroglycerin 2% Ointment 1 Inch/1 Gm Packet TOP Not Given Q8HR FELICITY Potassium Chloride 20 meq 02/22/20 12:00 02/22/20 11:32 Potassium Chloride 20 Meq Tab PO 02/22/20 17:01 20 meq TID-WM FELICITY Administration Ranolazine 1,000 mg 02/22/20 09:00 02/22/20 09:27 Ranolazine 500 Mg Tab PO 1,000 mg BID FELICITY Administration Venlafaxine HCl 75 mg 02/22/20 09:00 02/22/20 09:28 Venlafaxine Hcl 75 Mg Tab PO 75 mg BID FELICITY Administration - Exam General Appearance: NAD Heart: RRR, no gallops, no rubs, normal peripheral pulses Respiratory: no wheezes, no rales, no ronchi, normal chest expansion Gastrointestinal: soft, non-tender, non-distended, normal bowel sounds Extremities: no cyanosis, no clubbing, no edema Neurological: no new deficit Psychiatric: normal affect, A&O x 3 Hosp A/P - Plan DVT proph w/SCDs Chest pain suspicious for unstable angina Coronary artery disease Hypokalemia Paroxysmal atrial fibrillationin sinus rhythm UTI Morbid obesity with a BMI 42.7 CKD stage III Chronically abnormal LFTs Hypertension Hyperlipidemia Other issues per history and physical Plan: Continue aspirin with beta-blockers and ISABELLA inhibitor. Continue Ranexa. Replace potassium. Patient did not receive her Toprol-XL this morning due to heart rate in low 50s. Continue Nitropatch. Cardiac cath planned today. Continue other medications as above. Continue IV ceftriaxone for UTI. Await urine cultures. Post void residual in normal range.
[2020-02-22] MEDS ORDERED: Nitroglycerin 0.4 MG TAB (25 Tab Bottle) SL PRN (13:54)
[2020-02-22] MEDS ORDERED: Acetaminophen/Codeine 30-300mg Tablet PO PRN ×2 (13:54)
[2020-02-22] MEDS ORDERED: Sodium Chloride 0.9% 200 ML IV PRN (13:54)
[2020-02-22] MEDS ORDERED: Iopamidol 370 76% 100 ML VIAL ONE (14:54)
[2020-02-22] MEDS ORDERED: Rosuvastatin 10 MG TAB PO SCH (21:00)
[2020-02-23] MEDS: cefTRIAXone\\ROCEPHIN 1 GM in Sodium Chloride 0.9% 100 ML IVPB SCH (01:52)
[2020-02-23 05:02] LABS: #Eosinphils 0.2 thou/uL (0.0-0.7); #Lymphocytes 1.5 thou/uL (1.20-3.40); #Monocytes 0.6 thou/uL (0.11-0.59); #Neutrophils 2.9 thou/uL (1.40-6.50); %Basophils 0.2 % (0.0-1.0); %Eosinophils 3.8 % (0.0-10.0); %Lymphocytes 28.7 % (21.0-51.0); %Monocytes 11.6 % (0.0-10.0); %Neutrophils 55.7 % (42.0-75.0); Hemoglobin 12.2 g/dL (12.0-16.0); Mean Corpuscular HGB CONC 33.6 g/dL (32.0-36.0); Mean Corpuscular Hemoglobin 33.6 pg (27.0-31.0); Mean Platelet Volume 7.5 fL (7.4-10.4); Platelet Count 157 thou/uL (130-400); RBC Distribution Width 11.9 % (11.5-14.5); Red Blood Cell (RBC) Count 3.63 mill/uL (4.20-5.40); White Blood Cell (WBC) Count 5.3 thou/uL (4.8-10.8)
[2020-02-23 05:23] LABS: Anion Gap 11 mmol/L (10-20); BUN (Urea Nitrogen) 20 mg/dL (9.8-20.1); Calc. Creatinine Clearance 90 mL/min (70-130); Calcium 8.5 mg/dL (7.8-10.44); Carbon Dioxide 22 mmol/L (23-31); Chloride 109 mmol/L (98-107); Estimated GFR-MDRD 70; Glucose 87 mg/dL (83-110); Sodium 138 mmol/L (136-145)
[2020-02-23] MEDS: Nitroglycerin 2% Ointment 1 INCH/1 GM Packet TOP SCH (06:09)
[2020-02-23 08:12] VITALS: BP 138/65; TEMP 98.3
[2020-02-23] MEDS ORDERED: Apixaban 5 MG TAB PO SCH (09:00)
[2020-02-23] MEDS: Lisinopril 20 MG TAB PO SCH (09:53)
[2020-02-23] MEDS: Amlodipine 5 MG TAB PO SCH (09:54)
[2020-02-23] MEDS: Aspirin 81 mg Enteric Coated Tablet PO SCH (09:54)
[2020-02-23] MEDS: Amiodarone 200 MG TAB PO SCH (09:54)
[2020-02-23] MEDS: levETIRAcetam 500 mg/5 ml Oral Solution PO SCH (09:54)
--- NOTE | 2020-02-23 13:45 | CON ---
DATE OF CONSULTATION: 02/22/2020 INDICATION FOR CONSULTATION: This is a 74-year-old female with history of known coronary artery disease, who presented with chest pain. HISTORY OF PRESENT ILLNESS: This is a 74-year-old female, who has been followed by me for many years, underwent angioplasty and stent placement to the left anterior descending artery several years ago. She at that time had a diagonal branch, which became stent jailed and this diagonal branch has had some ostial 70% stenosis. She has been cath'd in the past, most recently in 2017 for chest pain. The left anterior descending artery stent remained patent without evidence of stenosis. The diagonal branch still remains stenosed, but we were unable to open this vessel any further due to it is in what we call "stent penitentiary." Her stent was originally placed in 2006. At this time, she again had chest pain at home. She took 3 nitroglycerin. The pain still persisted. She called 911. She was given other medication in the ambulance, which she is unsure of but had what she believes is more nitroglycerin, but she continues to have pain. This morning she has minimal to no pain. Her EKG did not show any significant EKG changes to indicate ischemia. Her enzymes are negative for myocardial infarction. The second set was almost indeterminate, but the first and third sets were negative. At this time, given her continued complaints of chest pain, which she has had for a long ongoing time, we will again proceed with a cardiac catheterization most likely. PAST MEDICAL HISTORY: Significant for coronary artery disease, angioplasty, stent placement. She has had right foot surgery. She has had a lap band in 2010, which was unsuccessful. She had cataract surgery. She had angioplasty stent placed in the left anterior descending artery in 2006. She has a history of hypertension. She also has a history of morbid obesity. She has diastolic heart failure, paroxysmal atrial fibrillation, history of lower extremity edema. She has had a hiatal hernia. She has had a TIA. She has osteoarthritis. She has a benign brain tumor x3 in 2011. REVIEW OF SYSTEMS: A 12-point review of systems is unremarkable except what is noted in the history of present illness. MEDICATIONS: Prior to admission included; 1. Nitroglycerin spray p.r.n. 2. Aspirin 81 mg a day. 3. Ranexa 1000 mg b.i.d. 4. Furosemide 40 mg once a day. 5. Amiodarone 200 mg once a day. 6. Isosorbide dinitrate 30 mg b.i.d. 7. Lisinopril 20 mg b.i.d. 8. Eliquis 5 mg b.i.d. 9. Crestor 20 mg a day. 10. Levetiracetam 500 mg. 11. Effexor 75 mg b.i.d. 12. Rabeprazole sodium 20 mg once a day. 13. Lisinopril 20 mg b.i.d. 14. Norvasc 5 mg b.i.d. 15. Metoprolol ER 50 mg, she takes half a tablet once a day. 16. Hydralazine 10 mg twice a day. ALLERGIES: SHE SAYS SHE IS ALLERGIC TO STRAWBERRY, BUT NO KNOWN DRUG ALLERGIES. FAMILY HISTORY: Father had a stroke. She has had siblings with diabetes. SOCIAL HISTORY: She lives alone. She has no alcohol or tobacco abuse. PHYSICAL EXAMINATION: GENERAL: A well-developed, well-nourished, overweight female, who is in no acute distress at this time. VITAL SIGNS: Her blood pressure is 122/60, heart rate is in the 50s and shows a regular rhythm. She is in sinus rhythm at this time. Respiratory rate 16 to 18. She is afebrile. O2 saturation 97%. HEENT: Head to be normocephalic and atraumatic. Carotid pulses are present. I did not hear any significant bruits. CHEST: Clear to auscultation. No rales, rhonchi, or wheezing. CARDIOVASCULAR: Regular rate and rhythm. She has a very soft systolic murmur of the aortic area, also systolic murmur at the apex about 2 to 3/6. ABDOMEN: Morbid obesity. Positive bowel sounds are present. EXTREMITIES: No clubbing, cyanosis, or edema. Pedal pulses are present, somewhat decreased, but are present. NEUROLOGIC: The patient appears to be intact. LABORATORY DATA: Potassium of 3.6, sodium is 144, BUN was 20, creatinine 0.92, blood sugar was 124. Her BNP was 112. Cardiac enzymes originally on admission was 0.013, increased up to 0.03 and then back down to 0.01, not indicative of myocardial infarction. LDL was 59. BNP was 112. Her WBC is 6.2, hemoglobin is 11.2, and platelet count was 172,000. EKG shows sinus rhythm with decreased R-wave progression in V1 through V4. However, due to the morbid obesity of the patient, this may be due to the distance from the chest wall. There is no ST-segment elevation. IMPRESSION: 1. Continued chest pain in a 74-year-old female with history of known coronary artery disease. Given her presentation and risk factors, I have explained to her the best solution would be to proceed with a cardiac catheterization once again to evaluate the coronary artery status to see if she has had any further progression of her coronary artery disease, especially in view of her diabetes and hypertension. I have explained the procedure and the risks to her to include bleeding, infection, possible myocardial infarction, CVA, renal insufficiency, allergic contrast reaction, and even the possibility of . She understands and agrees to proceed. We will plan for cardiac catheterization later today. 2. History of hypertension. This is under good control with the present medications. 3. Hyperlipidemia. She will continue on these medications also. 4. Intermittent atrial fibrillation. She remains in sinus rhythm. We will continue her medications with the amiodarone and also with Eliquis. Further recommendations will depend on the results of the cardiac catheterization. She was undergoing an echocardiogram this morning while I was discussing with the patient and just preliminary report does show ejection fraction to be normal. She does have some aortic valve sclerosis as well as some mitral annular calcifications and mild aortic valve regurgitation and thus far, further evaluation of the echo will need to be undertaken when it is available to have a complete read. Job ID: [id number]
--- NOTE | 2020-02-23 14:37 | DIS ---
DATE OF ADMISSION: 02/23/2020 DATE OF DISCHARGE: 02/23/2020 DISCHARGE DISPOSITION: Home. FOLLOWUP: 1. Follow up with primary care physician, Dr. Mcbride, in 1 week. 2. Follow up with Cardiology, Dr. Copeland, as scheduled. DISCHARGE MEDICATIONS: 1. Omnicef 300 mg b.i.d. for next 5 days. 2. Isosorbide mononitrate 30 mg daily. 3. All other home medications were left unchanged. The patient was seen and examined on the day of discharge. Denies any new complaints. No chest pain, shortness of breath, or palpitations reported. Vital signs on the day of discharge show temperature 98.3, pulse rate of 78, respirations 20, blood pressure 138/65, with O2 saturation 95% on room air. BRIEF HOSPITAL COURSE: The patient is a 74-year-old female with coronary artery disease; atrial fibrillation, on anticoagulation; hypertension with diabetes mellitus type 2; presented to the emergency room with chest discomfort. Please refer to the history and physical for further details. The patient was admitted to the hospital with a diagnosis of chest discomfort concerning for unstable angina. She was monitored on the telemetry unit. Her troponins were in the indeterminate range. The patient was evaluated by Cardiology, Dr. Copeland. She underwent cardiac catheterization that showed single-vessel coronary artery disease with patent stent in the LAD. She had 90% ostial stenosis in the diagonal 1. There was no significant stenosis in the RCA, left circumflex, and left main. The patient was advised to continue current regimen. Isosorbide mononitrate was added per Dr. Esparza's recommendation. The patient was advised to follow up with Dr. Copeland as outpatient. FINAL DIAGNOSES: 1. Chest discomfort concerning for unstable angina. 2. Coronary artery disease, status post stent placement. 3. Paroxysmal atrial fibrillation, on anticoagulation. 4. Hypokalemia. 5. Urinary tract infection. Postvoid residual was normal. The patient was advised to follow up on the urine culture report. 6. Morbid obesity with a BMI of 42.7. 7. Chronic kidney disease, stage 3. 8. Chronically abnormal LFTs. 9. Hypertension. 10. Hyperlipidemia. 11. Chronic diastolic heart failure, compensated. 12. History of transient ischemic attack. 13. History of benign brain tumor. 14. Anxiety. The patient understands the above plan of care. Job ID: [id number]
== END 2020-02-23 15:01 | disposition home or self-care (01) | DRG 287 ==
LOC: ERS 14:43 → 2NO 16:33 → OBSVTOIN 02-23 08:19
PROVIDERS: ADMIT Internal Medicine; ATTEND Internal Medicine
PROC: 4A023N7 Measurement of Cardiac Sampling and Pressure, Left Heart, Percutaneous Approach (ICD-10-PCS; principal; 2020-02-22)
PROC: B2111ZZ Fluoroscopy of Multiple Coronary Arteries using Low Osmolar Contrast (ICD-10-PCS; 2020-02-22)
PROC: B2151ZZ Fluoroscopy of Left Heart using Low Osmolar Contrast (ICD-10-PCS; 2020-02-22)
DX: I25.110 Atherosclerotic heart disease of native coronary artery with unstable angina pectoris (principal); N39.0 Urinary tract infection, site not specified; Z68.41 Body mass index [BMI] 40.0-44.9, adult; I50.32 Chronic diastolic (congestive) heart failure; I13.0 Hypertensive heart and chronic kidney disease with heart failure and stage 1 through stage 4 chronic kidney disease, or unspecified chronic kidney disease; E78.5 Hyperlipidemia, unspecified; G47.33 Obstructive sleep apnea (adult) (pediatric); K21.9 Gastro-esophageal reflux disease without esophagitis; F32.9 Major depressive disorder, single episode, unspecified; M19.90 Unspecified osteoarthritis, unspecified site; D42.9 Neoplasm of uncertain behavior of meninges, unspecified; Z20.828 Contact with and (suspected) exposure to other viral communicable diseases; E87.6 Hypokalemia; I48.0 Paroxysmal atrial fibrillation; E66.01 Morbid (severe) obesity due to excess calories; N18.30 Chronic kidney disease, stage 3 unspecified; R94.5 Abnormal results of liver function studies; F41.9 Anxiety disorder, unspecified; E11.22 Type 2 diabetes mellitus with diabetic chronic kidney disease; Z95.5 Presence of coronary angioplasty implant and graft; Z86.73 Personal history of transient ischemic attack (TIA), and cerebral infarction without residual deficits; Z91.018 Allergy to other foods; Z79.82 Long term (current) use of aspirin; Z79.01 Long term (current) use of anticoagulants
CPT/HCPCS: 36415; 36416; 71045; 80048; 80053; 80061; 81001; 82550; 83690; 83735; 83880; 84443; 84484; 85025; 87077; 87086; 87186; 87635; 93005; 93306; 93458; 94760; 96365; 97139; G0378; J0696; J1644; J2001; J2250; J2405; J3010; J3490; Q9967; U0003

== ENCOUNTER 2020-03-10 19:17 | Emergency (ER) | payer MEDICARE ==
[~2020-03-10 19:17] MED LIST changes: -ISOVUE-370 76%-LOCM 1 ML ONE; +Iopamidol-370 76% 500 ML 1 ML ONE
[2020-03-10 20:20] LABS: #Lymphocytes 0.8 thou/uL (1.20-3.40); #Monocytes 0.9 thou/uL (0.11-0.59); #Neutrophils 5.6 thou/uL (1.40-6.50); %Basophils 0.2 % (0.0-1.0); %Eosinophils 0.5 % (0.0-10.0); %Lymphocytes 11.2 % (21.0-51.0); %Neutrophils 76.1 % (42.0-75.0); Hemoglobin 13.9 g/dL (12.0-16.0); Mean Corpuscular HGB CONC 33.8 g/dL (32.0-36.0); Mean Corpuscular Volume 97.5 fL (78.0-98.0); Platelet Count 262 thou/uL (130-400); RBC Distribution Width 11.7 % (11.5-14.5); Red Blood Cell (RBC) Count 4.23 mill/uL (4.20-5.40); White Blood Cell (WBC) Count 7.4 thou/uL (4.8-10.8)
[2020-03-10 20:43] LABS: ALT (SGPT) 34 U/L (8-55); AST (SGOT) 42 U/L (5-34); Albumin 3.4 g/dL (3.4-4.8); Alkaline Phosphatase 69 U/L (40-110); Anion Gap 19 mmol/L (10-20); BUN (Urea Nitrogen) 25 mg/dL (9.8-20.1); Bilirubin, Total 0.8 mg/dL (0.2-1.2); CK (CPK) 46 U/L (29-168); Calc. Creatinine Clearance 0 mL/min (70-130); Calcium 9.2 mg/dL (7.8-10.44); Carbon Dioxide 24 mmol/L (23-31); Chloride 102 mmol/L (98-107); Estimated GFR-MDRD 46; Globulin 3.7 g/dL (2.4-3.5); Lipase 25 U/L (8-78); Potassium 3.5 mmol/L (3.5-5.1); Protein, Total 7.1 g/dL (6.0-8.3); Sodium 141 mmol/L (136-145)
[2020-03-10 20:54] LABS: Glucose 110 mg/dL (83-110)
--- NOTE | 2020-03-10 21:28 | CT ---
CT abdomen and pelvis with IV contrast HISTORY: Abdomen pain. Hematochezia. FINDINGS: Patchy ill-defined areas of parenchymal infiltrate are present at each posterior lung base. Tiny hyperdense lesions within the liver are too small to characterize and may represent cysts. Small hyperdense stone is present within the dependent portion of the gallbladder lumen. Gallbladder is distended up to 9.0 cm without wall thickening. Prominent calcification throughout the arterial structures. Lap band in place with dilatation of the lower esophagus. Gas-filled diverticulum projects medially f rom the second portion of the duodenum. Scattered diverticula arise from the colon. There is subtle circumferential wall thickening involving the distal portion of the transverse colon. No free fluid or free air. No evidence of abscess. Degenerative changes throughout the lumbar spine. Scattered tiny sclerotic foci are present, most wit h the appearance of bone islands. A densely sclerotic lesion within the left side of the sacrum now measures up to 1.6 cm, where it was much smaller on the prior exam. IMPRESSION : Mild inflammatory changes of the transverse colon may reflect long segment colitis. Infectious coliti s? Patchy mild infiltrates at each posterior lung base. Clinical correlation regarding other signs and s ymptoms of multifocal pneumonitis is required. Cholelithiasis. Gallbladder is distended but wall not thickened. Please correlate clinically regardin g the possibility of acute cholecystitis. Enlarging sclerotic lesion within the left side of the sacrum. Caution is warranted. Please consider radionucleotide bone scan to evaluate for osseous metastatic disease. Atherosclerosis.
--- NOTE | 2020-03-10 23:08 | ULT ---
Sonogram right upper quadrant HISTORY: Abdominal pain. FINDINGS: Echogenic sludge and stones are present within the gallbladder lumen. Gallbladder is disten ded to 9.1 cm. No gallbladder wall thickening or pericholecystic fluid. Patient was reportedly not tender over the gallbladder fossa at the time of the exam. A 0.8 cm hyperechoic lesion within the pos terior aspect of the right liver lobe may represent a hemangioma when correlated with CT appearance. No free fluid. Common duct is 0.5 cm. IMPRESSION : : Cholelithiasis. Mild gallbladder distention. The absence of point tenderness at the gallbladder fossa on sonogram arg ues against acute cholecystitis.
--- NOTE | 2020-03-22 15:54 | EKG ---
Test Reason : Blood Pressure : / mmHG Vent. Rate : 084 BPM Atrial Rate : 084 BPM P-R Int : 166 ms QRS Dur : 076 ms QT Int : 460 ms P-R-T Axes : 063 045 026 degrees QTc Int : 543 ms Sinus rhythm with Premature atrial complexes Prolonged QT Abnormal ECG Confirmed by FAN MARRERO ([id number]), editor managing newspaper NKECHI EUBANKS ([id number]) on 03/22/2020 3:53:35 PM Referred By: Confirmed By:FAN MARRERO
== END 2020-03-11 00:35 | disposition home or self-care (01) ==
LOC: ERS 19:17
DX: K52.9 Noninfective gastroenteritis and colitis, unspecified (principal); M89.8X8 Other specified disorders of bone, other site; E11.9 Type 2 diabetes mellitus without complications; E78.5 Hyperlipidemia, unspecified; E78.00 Pure hypercholesterolemia, unspecified; I10 Essential (primary) hypertension; F32.9 Major depressive disorder, single episode, unspecified; Z86.73 Personal history of transient ischemic attack (TIA), and cerebral infarction without residual deficits; Z79.899 Other long term (current) drug therapy; Z79.82 Long term (current) use of aspirin
CPT/HCPCS: 36415; 74177; 76705; 80053; 82550; 83690; 84484; 85025; 87040; 93005; Q9967

== ENCOUNTER 2020-03-13 16:39 | Inpatient (IN) | payer MEDICARE ==
[2020-03-13 16:59] VITALS: BMI 42.0
[2020-03-13] MEDS ORDERED: Ondansetron ODT 4 MG TAB PO PRN (21:03)
[2020-03-13] MEDS ORDERED: Ondansetron PF 4 MG/2 ML Vial IVP PRN (21:03)
[2020-03-13] MEDS ORDERED: Acetaminophen 325 MG TAB PO PRN (21:03)
--- NOTE | 2020-03-13 22:09 | PDOC.HHP ---
Hospitalist HPI - History of Present Illness Abdominal pain History of Present Illness: This is an 84-year-old female patient with a history of coronary A. fib on Eliquis atrial fibrillation on Eliquis who was transferred here from [place] on account of failure of outpatient management for colitis. A week ago she started having abdominal pain and weakness sometimes unable to get of the toilet seat. She went to the hospital 3 days [address] for a CT scan of abdomen showed colitis of the transverse colon and cholelithiasis. She was started on Levaquin, Flagyl which she started taking a day ago. This morning she was still feeling weak and presented to her PCP with weakness and difficulty walking with associated hypotension with systolic blood pressure in the 80s. She was sent to the emergency room where she was noted to have a systolic blood pressure in the 90s and was saturation 96% on room air. Blood cultures from 3 days ago have remained negative She was afebrile pulse in the 60s. Her Covid test was negative. Given her generalized weakness and low blood pressures the decision was made to admit her on the grounds of failure of outpatient therapy for colitis and generalized weakness. Other pertinent history include Meningioma for which she received treatment with neurosurgery. Her recent abdominal CT scan noted an enlarging sclerotic lesion within the left side of the sacrum. It was recommended that a radionuclide bone scan be ordered to evaluate for osseous metastatic disease. She notes her last colonoscopy was about 3 years ago which revealed no abnormalities She was transferred here for further management Hospitalist ROS - Review of Systems Constitutional: denies: fever, chills, sweats Respiratory: reports: cough, dry. denies: shortness of breath, hemoptysis, SOB with excertion Cardiovascular: denies: chest pain, palpitations, orthopnea, paroxysmal noc. dyspnea Gastrointestinal: reports: abdominal pain. denies: nausea, vomiting, diarrhea, constipation Genitourinary: denies: dysuria, frequency, incontinence Neurological: reports: numbness, incoordination, change in speech. denies: weakness - Medication Medications: No known drug allergies. For medication currently referred to ambulatory address list. Hospitalist History - Past Medical History Psych: reports: Depression Musculoskeletal: reports: Osteoarthritis Endocrine: reports: Diabetes (Type II, no medications) Other Medical History: Carotid artery disease, A. fib, - Past Surgical History Past Surgical History: reports: Cataract Removal, Other ([place] (2016), right knee scope (2017), right upper extremity ORIF) Other Surgical History: Cataract removal, right upper extremity ORIF - Social History Alcohol: reports: None Drugs: reports: none Occupation: Retired - Exam General Appearance: awake alert General - other findings: Obese, not ill looking Eye: PERRL, anicteric sclera Heart: RRR, no murmur, no gallops, normal peripheral pulses Respiratory: no wheezes, no rales, no ronchi Gastrointestinal: soft Gastrointestinal - other findings: Mild tenderness, no rebound tenderness or rigidity. Bowel sounds present a Extremities: no cyanosis, no clubbing, no edema Neurological: cranial nerve grossly intact, normal sensation to touch, no weakness, no focal deficits Psychiatric: normal affect, normal behavior, A&O x 3 Hospitalist H&P A/P - Plan Plan: A/P This is an 84-year-old female patient with a history of CKD, A. fib on Eliquis, transferred here on account of failed outpatient management for colitis and progressive weakness. Colitis Has had 2 days of antibiotics We will continue parenteral antibiotics with ceftriaxone and metronidazole GI consult in a.m. Sclerotic bone lesions This is concerning for malignancy Request PET scan Oncology consult in a.m. Cholelithiasis Apparently asymptomatic We will monitor. Atrial fibrillation Rate controlled Hold apixaban for tonight indication of procedure should be done tomorrow Carotid artery disease Continue home medications are verified. Meningioma Stable Monitor Hypokalemia Corrected at outside hospital We will check magnesium Generalized weakness Not reported falls but walks with a cane Multifactorialcolitis, possible malignancy OT eval in the a.m. We will evaluate and treat as above DVT prophylaxisLovenox CODE STATUSfull
--- NOTE | 2020-03-13 23:36 | PDOC.FMACP ---
Advance Care Planning - Note Summary: Advanced Care Planning was discussed. The diagnosis, prognosis and goals of care were discussed. Patient is full code.
[2020-03-14] MEDS: Sodium Chloride 0.9% 1,000 ML IV SCH ×2 (00:04→11:43)
[2020-03-14] MEDS: cefTRIAXone\\ROCEPHIN 1 GM in Sodium Chloride 0.9% 100 ML IVPB SCH ×2 (00:17→21:32)
[2020-03-14] MEDS: metroNIDAZOLE 500 MG in Premix Bag 1 BAG IVPB SCH ×4 (00:17→23:07)
[2020-03-14 06:14] LABS: #Eosinphils 0.1 thou/uL (0.0-0.7); #Lymphocytes 1.1 thou/uL (1.20-3.40); #Monocytes 0.6 thou/uL (0.11-0.59); #Neutrophils 3.5 thou/uL (1.40-6.50); %Basophils 0.5 % (0.0-1.0); %Lymphocytes 20.7 % (21.0-51.0); %Monocytes 11.4 % (0.0-10.0); %Neutrophils 65.4 % (42.0-75.0); Hemoglobin 11.6 g/dL (12.0-16.0); Mean Corpuscular HGB CONC 33.5 g/dL (32.0-36.0); Mean Corpuscular Hemoglobin 32.7 pg (27.0-31.0); Mean Corpuscular Volume 97.7 fL (78.0-98.0); Mean Platelet Volume 6.6 fL (7.4-10.4); Platelet Count 222 thou/uL (130-400); RBC Distribution Width 11.7 % (11.5-14.5); Red Blood Cell (RBC) Count 3.55 mill/uL (4.20-5.40); White Blood Cell (WBC) Count 5.3 thou/uL (4.8-10.8)
[2020-03-14 06:36] LABS: Anion Gap 12 mmol/L (10-20); BUN (Urea Nitrogen) 15 mg/dL (9.8-20.1); Calc. Creatinine Clearance 88 mL/min (70-130); Calcium 8.2 mg/dL (7.8-10.44); Carbon Dioxide 22 mmol/L (23-31); Chloride 112 mmol/L (98-107); Glucose 81 mg/dL (83-110); Potassium 3.4 mmol/L (3.5-5.1); Sodium 143 mmol/L (136-145)
[2020-03-14] MEDS: Apixaban 5 MG TAB PO SCH ×2 (08:43→21:33)
[2020-03-14] MEDS: Aspirin Chewable 81 MG TAB PO SCH (08:43)
[2020-03-14] MEDS: Amiodarone 200 MG TAB PO SCH (08:43)
[2020-03-14] MEDS: levETIRAcetam 500 MG TAB PO SCH (08:44)
[2020-03-14] MEDS: Saccharomyces boulardii 250 MG CAP PO SCH (08:50)
[2020-03-14] MEDS ORDERED: FLU VACC QS2020-21(65YR UP)/PF 240 MCG/0.7 ML SYRINGE IM ONE (09:00)
[2020-03-14] MEDS ORDERED: Enoxaparin Sodium 40 MG/0.4 ML SYRINGE SC SCH (09:00)
[2020-03-14] MEDS ORDERED: Amlodipine 5 MG TAB PO SCH (09:00)
[2020-03-14] MEDS ORDERED: Nitroglycerin 0.4 MG TAB (25 Tab Bottle) SL PRN (10:14)
--- NOTE | 2020-03-14 19:18 | PDOC.HOSPP ---
- Subjective Encounter Date: 03/14/20 Encounter Time: 09:00 Subjective: Patient seen and examined for abdominal pain with colitis. Abdominal pain is improving. Denies any fever or chills. No chest pain or palpitations. - Objective Vital Signs & Weight: Vital Signs (12 hours) Temp Pulse Resp BP Pulse Ox 03/14/20 15:21 97.8 F 60 14 112/70 94 L 03/14/20 11:54 97.5 F L 62 15 113/69 92 L 03/14/20 08:43 69 03/14/20 08:00 94 L 03/14/20 07:49 97.6 F 69 16 143/82 H 94 L Weight Weight 208 lb I&O: 03/13/20 03/14/20 03/15/20 06:59 06:59 06:59 Intake Total 240 960 Balance 240 960 Result Diagrams: 03/14/20 05:38 03/14/20 05:38 Additional Labs: Accuchecks 03/14/20 03/14/20 15:24 11:54 POC Glucose 106 H 93 Abnormal Lab Results - Last 48 hrs 03/14/20 05:38: Potassium 3.4 L, Chloride 112 H, Carbon Dioxide 22 L 03/14/20 05:38: RBC 3.55 L, Hgb 11.6 L, Hct 34.7 L, MCH 32.7 H, MPV 6.6 L, Lymphocytes % 20.7 L, Monocytes % 11.4 H, Lymphocytes # 1.1 L, Monocytes # 0.6 H Radiology Reviewed by me: Yes (CT abdomencolitis) Hospitalist ROS - Review of Systems Constitutional: reports: weakness Respiratory: denies: cough, dry, shortness of breath, hemoptysis, SOB with e xcertion, pleuritic pain, sputum, wheezing, other - Medication Medications: Active Medications Generic Name Dose Route Start Last Admin Trade Name Freq PRN Reason Stop Dose Admin Amiodarone HCl 200 mg 03/14/20 09:00 03/14/20 08:43 Amiodarone 200 Mg Tab PO 200 mg DAILY FELICITY Administration Amlodipine Besylate 2.5 mg 03/14/20 09:00 03/14/20 08:43 Amlodipine 5 Mg Tab PO 2.5 mg DAILY FELICITY Administration Apixaban 5 mg 03/14/20 09:00 03/14/20 08:43 Apixaban 5 Mg Tab PO 5 mg BID FELICITY Administration Aspirin 81 mg 03/14/20 09:00 03/14/20 08:43 Aspirin Chewable 81 Mg Tab PO 81 mg DAILY FELICITY Administration Ceftriaxone Sodium 1 gm/ 100 mls @ 200 mls/hr 03/13/20 21:30 03/14/20 00:17 Sodium Chloride IVPB 100 mls Q24HR FELICITY Administration Metronidazole 500 mg/ Device 100 mls @ 100 mls/hr 03/13/20 22:00 03/14/20 14:28 IVPB 100 mls Q8HR FELICITY Administration Sodium Chloride 1,000 mls @ 75 mls/hr 03/13/20 21:15 03/14/20 11:43 Normal Saline 0.9% IV Not Given .[id number] FELICITY Levetiracetam 500 mg 03/14/20 09:00 03/14/20 08:44 Levetiracetam 500 Mg Tab PO 500 mg DAILY FELICITY Administration Pantoprazole Sodium 40 mg 03/14/20 09:00 03/14/20 08:43 Pantoprazole 40 Mg Tab PO 40 mg DAILY FELICITY Administration Saccharomyces Boulardii 250 mg 03/14/20 09:00 03/14/20 08:50 Saccharomyces Boulardii 250 Mg Cap PO 250 mg DAILY FELICITY Administration Venlafaxine HCl 75 mg 03/14/20 09:00 03/14/20 08:43 Venlafaxine Hcl 75 Mg Tab PO 75 mg BID FELICITY Administration - Exam General Appearance: ill appearing Heart: RRR, no gallops, no rubs, normal peripheral pulses Respiratory: no wheezes, no rales, no ronchi, normal chest expansion Gastrointestinal: soft, normal bowel sounds, no guarding, no rigidity, tender to palpation (Minimal right lower quadrant tenderness) Extremities: no cyanosis, no clubbing Neurological: no new deficit Psychiatric: normal affect, A&O x 3 Hosp A/P - Plan DVT proph w/SCDs Colitis failed outpatient therapy rule out C. difficile Dehydration Recent hospitalization for unstable angina/UTI Left sacral lesion Bone scan as outpatient. Case discussed with oncology who recommended outpatient follow-up after bone scan. Coronary artery disease status post stent Hypokalemia Paroxysmal atrial fibrillation on anticoagulation Morbid obesity with a BMI 42 CKD stage III Chronically abnormal LFTs Hypertension Hyperlipidemia Cholelithiases BHARAT on CPAP -family to bring it Plan: Replace potassium. Change diet to clear liquid. Continue ceftriaxone and Flagyl. GI consultation. Await stool studies. Add probiotic. Resume selected home medications. Hold diuretics due to diarrhea. Reduce metoprolol dose. Continue other medications as above. A.m. labs.
[2020-03-14] MEDS ORDERED: Rosuvastatin 10 MG TAB PO SCH (21:00)
--- NOTE | 2020-03-14 23:14 | CON ---
DATE OF CONSULTATION: 03/14/2020 REASON FOR CONSULTATION: Abnormal GI imaging showing colitis on CT. PHYSICIAN CONSULTING: Braulio Briseno MD HISTORY OF PRESENT ILLNESS: The patient is a -[id number] female, with past medical history of osteoarthritis; depression; diabetes; atrial fibrillation status post ablation; congestive heart failure; and meningioma (?), presenting with complaints of increased generalized weakness. She states that she was in her usual state of health until approximately 1 week ago when she began having increased generalized weakness and fatigue that was followed by one episode of voluminous diarrhea that the patient characterized as a "blow out." While on the toilet, the patient did not have the strength to achieve a standing position and ultimately was transferred to the ER for further evaluation. At that time, the patient underwent a CT scan of her abdomen, which showed subtle wall thickening of the distal transverse colon concerning for colitis and she was ultimately placed on antibiotic regimen, including Levaquin and Flagyl. However, over the next few days, the patient continued to have these episodes of weakness and fatigue and was ultimately seen by her PCP (Dr. Mcbride) in his office for followup and was noted to again have dizziness, diaphoresis, and balance issues with significant hypotension noted in Dr. Mcbride's clinic. She was subsequently transferred back to the ER for further evaluation and ultimately transferred to [facility] for further evaluation as well. Since being here in the hospital, she does complain of continued generalized weakness that she states is only mildly better when compared to her previous days. She also endorses subjective fevers, chills, dizziness, diaphoresis, decreased appetite, and increasing balance issues over the last week. However, she denies any nausea, vomiting, fevers, hematemesis, melena, hematochezia, dysphagia, odynophagia, constipation, or weight loss. Of note, the patient has only had one episode of diarrhea over the last week. REVIEW OF SYSTEMS: A 10-category review of systems was obtained with all responses negative, except pertinent positives as listed in the HPI. PAST MEDICAL HISTORY: As per HPI. PAST SURGICAL HISTORY: Cataract removal, right knee arthroscopic surgery, right upper extremity ORIF, and toe surgery in 2016. FAMILY HISTORY: Denies any GI malignancies. SOCIAL HISTORY: Denies any tobacco, alcohol, or illicit drug use. OUTPATIENT MEDICATIONS: Reviewed. ALLERGIES: STRAWBERRIES, WITH NO KNOWN DRUG ALLERGIES. PHYSICAL EXAMINATION: VITAL SIGNS: Temperature 97.8, pulse 61, blood pressure 133/76, respiratory rate 18, and saturating 92% on room air. GENERAL: The patient is sitting in a chair in her bathroom, in no acute distress. Alert and oriented x4. HEENT: Normocephalic and atraumatic. No scleral icterus noted. NECK: Supple. No JVD noted. CARDIOVASCULAR: Regular rate and rhythm with no discernible murmurs, gallops, or rubs (although heart sounds were somewhat distant). RESPIRATORY: Clear to auscultation bilaterally with no discernible wheezes or rales. ABDOMEN: Normoactive bowel sounds. Soft, nondistended, mild tenderness to palpation in the left upper quadrant. EXTREMITIES: No cyanosis, clubbing, or edema. LABORATORY DATA: CBC with a white blood cell count of 5.3, hemoglobin 11.6, hematocrit 34.7, and platelets 222. Chemistry with a sodium of 143, potassium 3.4, chloride 112, CO2 of 22, BUN 15, creatinine 0.81, glucose 82, AST 54, ALT 42, alkaline phosphatase 59, and total bilirubin 0.4. CRP 1.39, lipase 31, albumin 3.1. IMAGING DATA: CT of the abdomen and pelvis was obtained on March 10, 2020, which showed parenchymal infiltrates around the posterior lung bases, gallbladder distention was also noted, but no evidence of cholecystitis. A lap band was in place with dilation of the lower esophagus. However, subtle circumferential wall thickening was seen in the distal transverse colon with no other abnormalities. A densely sclerotic lesion was also seen in the left sacrum that was enlarged when compared to previous imaging. ASSESSMENT AND PLAN: The patient is a -[id number]-xxz female, with past medical history of osteoarthritis; depression; diabetes; atrial fibrillation, status post ablation; and congestive heart failure, presenting with acute onset of generalized weakness, dizziness, one episode of diarrhea, and subtle circumferential wall thickening concerning for colitis, but when looked in its totality, it is consistent with ischemic colitis. Ischemic colitis. The patient is initially presenting with episodes of increased weakness, fatigue, and dizziness in association with sporadic episodes of hypotension observed subjectively and objectively over the last week. She did have one episode of diarrhea approximately [address] scan obtained shortly thereafter that showed subtle circumferential wall thickening in the distal transverse colon, which is a known watershed area. At this time, it seems that hypotensive episodes are contributing to more of an ischemic colitis type picture as evidenced by no significant elevation in her white blood cell count, but elevated nonspecific inflammatory markers (elevated CRP). However, infection cannot be ruled out at this time, although much less likely on the differential. RECOMMENDATIONS: 1. We will obtain infectious stool studies for possible pathogen contributing to her CT findings. 2. We would pay special attention to the patient's heart rate and blood pressure during this hospitalization and avoid any further episodes of hypotension. 3. If she does exhibit any further episodes of hypotension, would consider Cardiology consultation for evaluation of the patient and medical management. 4. Agree with administration of gentle IV fluid, again to avoid episodes of hypotension, if the patient is able to tolerate it from a CHF standpoint. 5. Antibiotics are not indicated at this time given only one episode of diarrhea and only subtle findings of colitis on imaging. We will continue to follow. Please call with any questions. Job ID: [id number]
[2020-03-15] MEDS: Sodium Chloride 0.9% 1,000 ML IV SCH (01:44)
[2020-03-15] MEDS: metroNIDAZOLE 500 MG in Premix Bag 1 BAG IVPB SCH (05:43)
[2020-03-15 07:21] LABS: #Eosinphils 0.1 thou/uL (0.0-0.7); #Lymphocytes 1.1 thou/uL (1.20-3.40); #Monocytes 0.6 thou/uL (0.11-0.59); #Neutrophils 3.5 thou/uL (1.40-6.50); %Basophils 0.4 % (0.0-1.0); %Eosinophils 2.1 % (0.0-10.0); %Lymphocytes 20.2 % (21.0-51.0); %Monocytes 11.6 % (0.0-10.0); %Neutrophils 65.6 % (42.0-75.0); Hemoglobin 11.2 g/dL (12.0-16.0); Mean Corpuscular HGB CONC 33.1 g/dL (32.0-36.0); Mean Corpuscular Hemoglobin 32.8 pg (27.0-31.0); Mean Corpuscular Volume 99.1 fL (78.0-98.0); Mean Platelet Volume 6.5 fL (7.4-10.4); Platelet Count 218 thou/uL (130-400); White Blood Cell (WBC) Count 5.3 thou/uL (4.8-10.8)
[2020-03-15 07:42] LABS: ALT (SGPT) 43 U/L (8-55); AST (SGOT) 64 U/L (5-34); Albumin 2.8 g/dL (3.4-4.8); Alkaline Phosphatase 53 U/L (40-110); Anion Gap 12 mmol/L (10-20); BUN (Urea Nitrogen) 10 mg/dL (9.8-20.1); Bilirubin, Total 0.3 mg/dL (0.2-1.2); Calc. Creatinine Clearance 93 mL/min (70-130); Calcium 8.3 mg/dL (7.8-10.44); Carbon Dioxide 25 mmol/L (23-31); Chloride 111 mmol/L (98-107); Globulin 2.8 g/dL (2.4-3.5); Glucose 96 mg/dL (83-110); Magnesium 1.9 mg/dL (1.6-2.6); Potassium 3.6 mmol/L (3.5-5.1); Protein, Total 5.6 g/dL (6.0-8.3); Sodium 144 mmol/L (136-145)
[2020-03-15] MEDS ORDERED: Multivit, Therapeutic 1 TAB PO SCH (09:00)
[2020-03-15] MEDS ORDERED: Non-Formulary Item 1 EACH (Multivitamin [Daily Multiple Vitamin] 1 EACH Tablet) PO SCH (09:00)
[2020-03-15] MEDS: Aspirin Chewable 81 MG TAB PO SCH (10:05)
[2020-03-15] MEDS: Saccharomyces boulardii 250 MG CAP PO SCH (10:05)
[2020-03-15] MEDS: Apixaban 5 MG TAB PO SCH (10:06)
[2020-03-15] MEDS: levETIRAcetam 500 MG TAB PO SCH (10:07)
[2020-03-15] MEDS: Amiodarone 200 MG TAB PO SCH (10:07)
[2020-03-15 13:47] VITALS: BP 127/69; TEMP 97.6
--- NOTE | 2020-03-15 17:11 | DIS ---
DATE OF ADMISSION: 03/14/2020 DATE OF DISCHARGE: 03/15/2020 DISCHARGE DISPOSITION: Home. PRIMARY DISCHARGE DIAGNOSIS: Abdominal pain with suspected colitis, resolved. SECONDARY DISCHARGE DIAGNOSES: Paroxysmal atrial fibrillation, history of chronic cholelithiasis, sclerotic bone lesion for outpatient workup. PROCEDURES DONE DURING HOSPITALIZATION: Chest x-ray showed no acute cardiopulmonary process. CT of the abdomen and pelvis done on 03/10/2020 showed mild inflammatory changes in the transverse colon, may reflect long segment colitis, cholelithiasis, enlarging sclerotic lesion within the left side of the sacrum. Blood cultures x2, no growth. H and H 11 and 33. Platelet count 218. BUN 10, creatinine 0.7, albumin 2.8. Troponin x2 negative. CRP 1.39. DISCHARGE MEDICATIONS: 1. Aspirin 81 mg p.o. daily. 2. Rabeprazole 20 mg p.o. daily. 3. Amiodarone 200 mg p.o. daily. 4. Crestor 10 mg p.o. at bedtime. 5. Multivitamin 1 tablet once daily. 6. Effexor 75 mg twice daily. 7. Keppra 500 mg p.o. daily. 8. Ranexa 1000 mg twice daily. 9. Toprol-XL 50 mg p.o. q.a.m. 10. Eliquis 5 mg p.o. twice daily. 11. Imdur extended release 30 mg p.o. daily. ALLERGIES: STRAWBERRIES. DISCHARGE PLAN: The patient is to follow up with her primary care physician, Dr. Mcbride, in 1 week. BRIEF COURSE DURING HOSPITALIZATION: The patient initially came in with complaints of abdominal pain. She had also complained of generalized weakness. The patient had come to emergency room 3 days back and had a CAT scan done, which suggested possible colitis. She was given Levaquin and Flagyl prior to hospitalization. In view of this history, she was admitted to medical floor. She has had consultation with Dr. Hal Agustin for Gastroenterology. The patient has not given any stool sample. Likely, the patient had suspected ischemic colitis in view of low blood pressure and hypotensive episodes, which might have contributed to above. She was gently hydrated during her stay here. She is hemodynamically stable and is wanting to go home today. She has had recent cardiac catheterization done on the 22 of February, which showed 90% lesion with stent being jailed. She had a patent stent in the LAD as well. She had not complained of any chest pain during her current hospitalization. Her antihypertensives were optimized in view of initial blood pressures being low. Please note I have seen and examined the patient on the day of discharge. Job ID: [id number] MTDD
== END 2020-03-15 12:50 | disposition home health service (06) | DRG 394 ==
LOC: T4-A 16:39 → OBSVTOIN 03-14 14:30
PROVIDERS: ADMIT Student in an Organized Health Care Education/Training Program; ATTEND Internal Medicine
DX: K55.9 Vascular disorder of intestine, unspecified (principal); Z68.41 Body mass index [BMI] 40.0-44.9, adult; I13.0 Hypertensive heart and chronic kidney disease with heart failure and stage 1 through stage 4 chronic kidney disease, or unspecified chronic kidney disease; M19.90 Unspecified osteoarthritis, unspecified site; D32.9 Benign neoplasm of meninges, unspecified; E87.6 Hypokalemia; K80.20 Calculus of gallbladder without cholecystitis without obstruction; E86.0 Dehydration; M89.9 Disorder of bone, unspecified; E66.01 Morbid (severe) obesity due to excess calories; N18.30 Chronic kidney disease, stage 3 unspecified; E78.5 Hyperlipidemia, unspecified; E11.22 Type 2 diabetes mellitus with diabetic chronic kidney disease; F32.9 Major depressive disorder, single episode, unspecified; G47.33 Obstructive sleep apnea (adult) (pediatric); I50.9 Heart failure, unspecified; I25.10 Atherosclerotic heart disease of native coronary artery without angina pectoris; I48.0 Paroxysmal atrial fibrillation; R79.89 Other specified abnormal findings of blood chemistry; Z98.890 Other specified postprocedural states; Z79.01 Long term (current) use of anticoagulants; Z95.5 Presence of coronary angioplasty implant and graft; Z91.018 Allergy to other foods
CPT/HCPCS: 36415; 36416; 74177; 76705; 80048; 80053; 82550; 83690; 83735; 84484; 85025; 87040; 93005; 96374; 96375; 96376; G0378; J0696; J3490; Q9967

== ENCOUNTER 2020-07-18 10:18 | Outpatient (CLI) | payer MEDICARE | END 2020-07-18 10:19 | disposition home or self-care (01) | LOC: NM 10:18 | PROVIDERS: ATTEND Family Medicine | DX: R93.7 Abnormal findings on diagnostic imaging of other parts of musculoskeletal system (principal) | CPT/HCPCS: 78306; A9503 ==

== ENCOUNTER 2020-08-10 05:30 | Inpatient (IN) | payer MEDICARE ==
[2020-08-10] MEDS ORDERED: Furosemide 40 MG TAB ONE (05:55)
[2020-08-10] MEDS ORDERED: Furosemide 40 MG/4 ML VIAL ONE (05:55)
[2020-08-10] MEDS ORDERED: Albuterol Sulfate 1.25 MG/3 ML NEB ONE (05:59)
[2020-08-10] MEDS ORDERED: Labetalol HCl 100 MG/20 ML VIAL ONE (06:00)
[2020-08-10 06:12] LABS: #Eosinphils 0.2 thou/uL (0.0-0.7); #Monocytes 0.8 thou/uL (0.11-0.59); #Neutrophils 5.9 thou/uL (1.40-6.50); %Basophils 0.4 % (0.0-1.0); %Eosinophils 2.4 % (0.0-10.0); %Lymphocytes 12.5 % (21.0-51.0); %Monocytes 9.7 % (0.0-10.0); %Neutrophils 74.9 % (42.0-75.0); Hemoglobin 13.6 g/dL (12.0-16.0); Mean Corpuscular HGB CONC 32.9 g/dL (32.0-36.0); Mean Corpuscular Hemoglobin 32.9 pg (27.0-31.0); Mean Platelet Volume 7.4 fL (7.4-10.4); Platelet Count 158 thou/uL (130-400); RBC Distribution Width 12.9 % (11.5-14.5); Red Blood Cell (RBC) Count 4.12 mill/uL (4.20-5.40); White Blood Cell (WBC) Count 7.8 thou/uL (4.8-10.8)
[2020-08-10 06:28] LABS: ALT (SGPT) 33 U/L (8-55); AST (SGOT) 30 U/L (5-34); Albumin 3.5 g/dL (3.4-4.8); Alkaline Phosphatase 81 U/L (40-110); Anion Gap 10 mmol/L (10-20); BUN (Urea Nitrogen) 28 mg/dL (9.8-20.1); Bilirubin, Total 0.5 mg/dL (0.2-1.2); Calc. Creatinine Clearance 0 mL/min (70-130); Calcium 8.5 mg/dL (7.8-10.44); Carbon Dioxide 28 mmol/L (23-31); Chloride 107 mmol/L (98-107); Globulin 2.7 g/dL (2.4-3.5); Glucose 123 mg/dL (83-110); Potassium 4.3 mmol/L (3.5-5.1); Protein, Total 6.2 g/dL (5.8-8.1); Sodium 141 mmol/L (136-145)
[2020-08-10] MEDS ORDERED: Calcium Carbonate 500 MG ChewTAB PO PRN (09:45)
[2020-08-10] MEDS ORDERED: Zolpidem Tartrate 5 MG TAB PO PRN (09:45)
[2020-08-10] MEDS ORDERED: Ondansetron ODT 4 MG TAB PO PRN (09:45)
[2020-08-10] MEDS ORDERED: Bisacodyl 10 MG SUPP PR PRN (09:45)
[2020-08-10] MEDS ORDERED: Senokot S 8.6-50 MG TAB PO PRN (09:45)
[2020-08-10] MEDS ORDERED: Acetaminophen 325 MG TAB PO PRN (09:45)
[2020-08-10] MEDS ORDERED: HYDROcodone/Acetaminophen 5/325 mg Tablet PO PRN (09:45)
[2020-08-10] MEDS ORDERED: Loperamide HCl 2 MG CAP PO PRN (09:45)
[2020-08-10] MEDS ORDERED: Ondansetron PF 4 MG/2 ML Vial IVP PRN (09:45)
[2020-08-10] MEDS ORDERED: Loratadine 10 MG TAB PO PRN (09:47)
[2020-08-10] MEDS ORDERED: hydrALAZINE 20 MG/ML VIAL SLOW IVP PRN (09:47)
[2020-08-10] MEDS ORDERED: Sodium Chloride 0.65% Nasal 44 ML BOT EA NARE PRN (09:47)
[2020-08-10 10:26] LABS: SARS-CoV-2 NAA Rapid Test Not Detected (NotDetected)
[2020-08-10 11:10] LABS: Troponin I 0.012 ng/mL (< 0.028)
[2020-08-10 11:52] VITALS: BMI 42.1
[2020-08-10] MEDS: Furosemide 40 MG/4 ML VIAL SLOW IVP SCH (14:03)
[2020-08-10] MEDS: Nitroglycerin 2% Ointment 1 INCH/1 GM Packet TOP SCH ×2 (14:03→21:43)
[2020-08-10] MEDS ORDERED: Spironolactone 25 MG TAB PO SCH (16:30)
[2020-08-10] MEDS: Apixaban 5 MG TAB PO SCH (21:43)
[2020-08-10] MEDS: Famotidine 20 MG TAB PO SCH (21:43)
[2020-08-11 04:59] LABS: ALT (SGPT) 37 U/L (8-55); AST (SGOT) 45 U/L (5-34); Albumin 3.2 g/dL (3.4-4.8); Alkaline Phosphatase 69 U/L (40-110); Anion Gap 16 mmol/L (10-20); BUN (Urea Nitrogen) 23 mg/dL (9.8-20.1); Bilirubin, Total 0.5 mg/dL (0.2-1.2); Calc. Creatinine Clearance 75 mL/min (70-130); Calcium 7.4 mg/dL (7.8-10.44); Carbon Dioxide 24 mmol/L (23-31); Chloride 102 mmol/L (98-107); Globulin 3.2 g/dL (2.4-3.5); Glucose 91 mg/dL (83-110); Magnesium 2.2 mg/dL (1.6-2.6); Potassium 3.8 mmol/L (3.5-5.1); Protein, Total 6.4 g/dL (5.8-8.1); Sodium 138 mmol/L (136-145); Uric Acid 4.8 mg/dL (2.6-6.0)
[2020-08-11] MEDS: Nitroglycerin 2% Ointment 1 INCH/1 GM Packet TOP SCH ×3 (05:30→21:27)
[2020-08-11] MEDS: Furosemide 40 MG/4 ML VIAL SLOW IVP SCH ×2 (05:30→15:05)
[2020-08-11 06:03] LABS: Hemoglobin 13.4 g/dL (12.0-16.0); Mean Corpuscular HGB CONC 31.3 g/dL (32.0-36.0); Mean Corpuscular Hemoglobin 31.3 pg (27.0-31.0); Mean Platelet Volume 9.2 fL (7.4-10.4); Platelet Count 70 thou/uL (130-400); RBC Distribution Width 13.1 % (11.5-14.5); Red Blood Cell (RBC) Count 4.29 mill/uL (4.20-5.40); White Blood Cell (WBC) Count 5.8 thou/uL (4.8-10.8)
[2020-08-11 06:04] LABS: Eosinophils 4 % (0-10); Lymphocytes 25 % (21-51); MDiff Complete? YES; Monocytes 14 % (0-10); Neutrophil 57 % (42-75); Platelet Morphology Comment Appears Decreased
[2020-08-11 07:47] LABS: Bacteria/HPF 4+ HPF (None Seen); Bilirubin Negative (Negative); Blood, Urine Negative (Negative); Clarity Clear (Clear); Glucose, Urine (Dipstick) Normal (Negative); Ketone, Urine Negative (Negative); Leukocyte 25 Leu/uL (Negative); Nitrite Negative (Negative); Protein, Urine (Dipstick) Negative (Neg-Trace); RBC/HPF 0-3 HPF (0-3); Specific Gravity, Urine 1.012 (1.002-1.036); Squamous Epithelial 0-3 HPF (0-3); Urobilinogen Normal mg/dL (Less than 2); WBC/HPF 0-3 HPF (0-3); pH, Urine 5.5 (5.0-9.0)
[2020-08-11] MEDS: Spironolactone 25 MG TAB PO SCH (08:59)
[2020-08-11] MEDS: Amiodarone 200 MG TAB PO SCH (08:59)
[2020-08-11] MEDS: Apixaban 5 MG TAB PO SCH ×2 (08:59→21:27)
[2020-08-11] MEDS: Famotidine 20 MG TAB PO SCH ×2 (08:59→21:27)
[2020-08-11] MEDS: Aspirin Chewable 81 MG TAB PO SCH (09:03)
[2020-08-11] MEDS: Nitrofurantoin Monohyd/M-Cryst 100 MG CAP PO SCH (21:26)
[2020-08-12 04:46] LABS: #Basophils 0.1 thou/uL (0.0-0.2); #Eosinphils 0.2 thou/uL (0.0-0.7); #Lymphocytes 1.8 thou/uL (1.20-3.40); #Monocytes 0.9 thou/uL (0.11-0.59); #Neutrophils 3.2 thou/uL (1.40-6.50); %Basophils 1.5 % (0.0-1.0); %Eosinophils 3.7 % (0.0-10.0); %Lymphocytes 29.2 % (21.0-51.0); %Monocytes 14.4 % (0.0-10.0); %Neutrophils 51.2 % (42.0-75.0); Hemoglobin 13.7 g/dL (12.0-16.0); Mean Corpuscular HGB CONC 31.4 g/dL (32.0-36.0); Mean Corpuscular Hemoglobin 31.2 pg (27.0-31.0); Mean Corpuscular Volume 99.3 fL (78.0-98.0); Mean Platelet Volume 7.6 fL (7.4-10.4); Platelet Count 175 thou/uL (130-400); RBC Distribution Width 12.9 % (11.5-14.5); Red Blood Cell (RBC) Count 4.37 mill/uL (4.20-5.40); White Blood Cell (WBC) Count 6.2 thou/uL (4.8-10.8)
[2020-08-12 05:10] LABS: Anion Gap 15 mmol/L (10-20); BUN (Urea Nitrogen) 23 mg/dL (9.8-20.1); Calc. Creatinine Clearance 73 mL/min (70-130); Calcium 8.7 mg/dL (7.8-10.44); Carbon Dioxide 28 mmol/L (23-31); Chloride 101 mmol/L (98-107); Glucose 91 mg/dL (83-110); Potassium 3.4 mmol/L (3.5-5.1); Sodium 141 mmol/L (136-145)
[2020-08-12] MEDS: Nitroglycerin 2% Ointment 1 INCH/1 GM Packet TOP SCH (06:09)
[2020-08-12] MEDS: Furosemide 40 MG/4 ML VIAL SLOW IVP SCH (06:09)
[2020-08-12] MEDS ORDERED: Potassium Chloride 20 MEQ TAB PO SCH (09:30)
[2020-08-12] MEDS: Nitrofurantoin Monohyd/M-Cryst 100 MG CAP PO SCH (09:41)
[2020-08-12] MEDS: Famotidine 20 MG TAB PO SCH (09:41)
[2020-08-12] MEDS: Spironolactone 25 MG TAB PO SCH (09:41)
[2020-08-12] MEDS: Aspirin Chewable 81 MG TAB PO SCH (09:42)
[2020-08-12] MEDS: Amiodarone 200 MG TAB PO SCH (09:42)
[2020-08-12] MEDS: Apixaban 5 MG TAB PO SCH (09:42)
[2020-08-12 11:51] VITALS: BP 145/65; TEMP 98.2
== END 2020-08-12 11:40 | disposition home or self-care (01) | DRG 291 ==
LOC: ERS 05:30 → 2NO 07:37
PROVIDERS: ADMIT Internal Medicine; ATTEND Internal Medicine
DX: I11.0 Hypertensive heart disease with heart failure (principal); J96.01 Acute respiratory failure with hypoxia; N39.0 Urinary tract infection, site not specified; Z68.41 Body mass index [BMI] 40.0-44.9, adult; Z51.5 Encounter for palliative care; Z20.822 Contact with and (suspected) exposure to COVID-19; I48.0 Paroxysmal atrial fibrillation; I50.33 Acute on chronic diastolic (congestive) heart failure; E11.9 Type 2 diabetes mellitus without complications; K21.9 Gastro-esophageal reflux disease without esophagitis; E78.5 Hyperlipidemia, unspecified; E78.00 Pure hypercholesterolemia, unspecified; G47.33 Obstructive sleep apnea (adult) (pediatric); G40.909 Epilepsy, unspecified, not intractable, without status epilepticus; F32.9 Major depressive disorder, single episode, unspecified; I25.10 Atherosclerotic heart disease of native coronary artery without angina pectoris; F41.9 Anxiety disorder, unspecified; I16.0 Hypertensive urgency; E66.01 Morbid (severe) obesity due to excess calories; Z95.5 Presence of coronary angioplasty implant and graft; Z86.011 Personal history of benign neoplasm of the brain; Z91.018 Allergy to other foods; Z79.01 Long term (current) use of anticoagulants; Z79.82 Long term (current) use of aspirin; Z79.899 Other long term (current) drug therapy; Z86.73 Personal history of transient ischemic attack (TIA), and cerebral infarction without residual deficits
CPT/HCPCS: 0240U; 36415; 36416; 71045; 80048; 80053; 81001; 83735; 83880; 84484; 84550; 85025; 93005; 93798; 94660; 94760; 96374; 96375; 97139; J1940

== ENCOUNTER 2020-09-22 13:59 | Outpatient (CLI) | payer MEDICARE ==
[~2020-09-22 13:59] MED LIST changes: +Iopamidol 370 76% 100 ML VIAL ONE; -Iopamidol-370 76% 500 ML 1 ML ONE
== END 2020-09-22 14:00 | disposition home or self-care (01) ==
LOC: BICCT 13:59
PROVIDERS: ATTEND Physician Assistant Medical
DX: R10.32 Left lower quadrant pain (principal); K80.20 Calculus of gallbladder without cholecystitis without obstruction
CPT/HCPCS: 74177; 82565; Q9967

== ENCOUNTER 2020-12-27 18:05 | Inpatient (IN) | payer MEDICARE ==
[2020-12-27] MEDS ORDERED: Nitroglycerin 0.4 MG TAB 1 EACH ONE (18:23)
[2020-12-27] MEDS ORDERED: Furosemide 100 MG/10 ML VIAL ONE (18:26)
[2020-12-27 18:36] LABS: #Eosinphils 0.2 thou/uL (0.0-0.7); #Lymphocytes 1.8 thou/uL (1.20-3.40); #Monocytes 0.7 thou/uL (0.11-0.59); #Neutrophils 6.8 thou/uL (1.40-6.50); %Basophils 0.2 % (0.0-1.0); %Eosinophils 2.2 % (0.0-10.0); %Lymphocytes 18.5 % (21.0-51.0); %Monocytes 7.4 % (0.0-10.0); %Neutrophils 71.6 % (42.0-75.0); Hemoglobin 14.9 g/dL (12.0-16.0); Mean Corpuscular HGB CONC 33.2 g/dL (32.0-36.0); Mean Corpuscular Hemoglobin 32.6 pg (27.0-31.0); Mean Corpuscular Volume 98.3 fL (78.0-98.0); Mean Platelet Volume 7.6 fL (7.4-10.4); Platelet Count 176 thou/uL (130-400); RBC Distribution Width 12.9 % (11.5-14.5); Red Blood Cell (RBC) Count 4.57 mill/uL (4.20-5.40); White Blood Cell (WBC) Count 9.5 thou/uL (4.8-10.8)
[2020-12-27 18:59] LABS: ALT (SGPT) 37 U/L (8-55); AST (SGOT) 37 U/L (5-34); Albumin 3.8 g/dL (3.4-4.8); Alkaline Phosphatase 84 U/L (40-110); Anion Gap 15 mmol/L (10-20); BUN (Urea Nitrogen) 23 mg/dL (9.8-20.1); Bilirubin, Total 0.7 mg/dL (0.2-1.2); Calc. Creatinine Clearance 0 mL/min (70-130); Calcium 8.8 mg/dL (7.8-10.44); Carbon Dioxide 19 mmol/L (23-31); Chloride 110 mmol/L (98-107); Globulin 3.2 g/dL (2.4-3.5); Glucose 158 mg/dL (83-110); Lipase 21 U/L (8-78); Sodium 140 mmol/L (136-145)
[2020-12-27] MEDS ORDERED: Aspirin Chewable 81 MG TAB ONE (20:21)
[2020-12-27 20:45] LABS: SARS-CoV-2 NAA Rapid Test Not Detected (NotDetected)
[2020-12-27] MEDS ORDERED: Nitroglycerin 0.4 MG TAB (25 Tab Bottle) SL PRN (21:39)
[2020-12-27] MEDS ORDERED: hydrALAZINE 20 MG/ML VIAL SLOW IVP PRN (21:39)
[2020-12-27] MEDS ORDERED: HumaLOG 300 UNITS/3 ML VIAL SC PRN ×2 (21:39→21:41)
[2020-12-27] MEDS ORDERED: Dextrose 5% in Water 1,000 ML IV PRN (21:41)
[2020-12-27] MEDS ORDERED: Dextrose 50% Abboject 50 ML SYRINGE SLOW IVP PRN (21:41)
[2020-12-27] MEDS ORDERED: Acetaminophen 325 MG TAB PO PRN (21:43)
[2020-12-27] MEDS ORDERED: HYDROcodone/Acetaminophen 7.5/325 mg Tablet PO PRN (21:43)
[2020-12-27] MEDS ORDERED: Zolpidem Tartrate 5 MG TAB PO PRN (21:43)
[2020-12-27 21:53] LABS: Troponin I 0.077 ng/mL (< 0.028)
[2020-12-28 00:44] VITALS: BMI 42.7
[2020-12-28 01:43] LABS: Troponin I 0.083 ng/mL (< 0.028)
[2020-12-28] MEDS: Nitroglycerin 2% Ointment 1 INCH/1 GM Packet TOP SCH ×4 (02:33→21:23)
[2020-12-28 05:45] LABS: #Eosinphils 0.1 thou/uL (0.0-0.7); #Lymphocytes 1.2 thou/uL (1.20-3.40); #Neutrophils 7.1 thou/uL (1.40-6.50); %Basophils 0.1 % (0.0-1.0); %Eosinophils 1.2 % (0.0-10.0); %Monocytes 10.8 % (0.0-10.0); %Neutrophils 74.9 % (42.0-75.0); Mean Corpuscular Hemoglobin 32.3 pg (27.0-31.0); Mean Corpuscular Volume 97.7 fL (78.0-98.0); Mean Platelet Volume 7.4 fL (7.4-10.4); Platelet Count 173 thou/uL (130-400); RBC Distribution Width 12.8 % (11.5-14.5); Red Blood Cell (RBC) Count 4.34 mill/uL (4.20-5.40); White Blood Cell (WBC) Count 9.5 thou/uL (4.8-10.8)
[2020-12-28 06:08] LABS: Albumin 3.4 g/dL (3.4-4.8); Anion Gap 9 mmol/L (10-20); BUN (Urea Nitrogen) 21 mg/dL (9.8-20.1); BUN/Creatinine Ratio 21.43; Calc. Creatinine Clearance 73 mL/min (70-130); Calcium 8.9 mg/dL (7.8-10.44); Carbon Dioxide 30 mmol/L (23-31); Chloride 102 mmol/L (98-107); Glucose 88 mg/dL (83-110); Phosphorus 3.6 mg/dL (2.3-4.7); Potassium 3.4 mmol/L (3.5-5.1); Sodium 138 mmol/L (136-145)
[2020-12-28 06:15] LABS: Troponin I 0.088 ng/mL (< 0.028)
[2020-12-28] MEDS: Furosemide 40 MG/4 ML VIAL SLOW IVP SCH ×2 (06:28→15:53)
[2020-12-28] MEDS ORDERED: Potassium Chloride 20 MEQ TAB PO SCH (07:45)
[2020-12-28] MEDS ORDERED: Lisinopril 10 MG TAB PO SCH (09:00)
[2020-12-28] MEDS ORDERED: Amlodipine 5 MG TAB PO SCH (09:00)
[2020-12-28] MEDS: Apixaban 5 MG TAB PO SCH ×2 (09:43→20:45)
[2020-12-28] MEDS: Amiodarone 200 MG TAB PO SCH (09:43)
[2020-12-28] MEDS: Aspirin Chewable 81 MG TAB PO SCH (09:44)
[2020-12-28] MEDS: Zinc Sulfate 220 MG CAP PO SCH (09:44)
[2020-12-28] MEDS: Lisinopril 10 MG TAB PO SCH (20:45)
[2020-12-28] MEDS ORDERED: Rosuvastatin 10 MG TAB PO SCH (21:00)
[2020-12-29] MEDS: Furosemide 40 MG/4 ML VIAL SLOW IVP SCH (05:36)
[2020-12-29] MEDS: Nitroglycerin 2% Ointment 1 INCH/1 GM Packet TOP SCH (05:42)
[2020-12-29 05:57] LABS: #Eosinphils 0.2 thou/uL (0.0-0.7); #Lymphocytes 1.4 thou/uL (1.20-3.40); #Monocytes 0.9 thou/uL (0.11-0.59); #Neutrophils 4.6 thou/uL (1.40-6.50); %Basophils 0.4 % (0.0-1.0); %Eosinophils 2.4 % (0.0-10.0); %Lymphocytes 20.2 % (21.0-51.0); %Monocytes 12.3 % (0.0-10.0); %Neutrophils 64.7 % (42.0-75.0); Hemoglobin 14.3 g/dL (12.0-16.0); Mean Corpuscular HGB CONC 32.8 g/dL (32.0-36.0); Mean Corpuscular Hemoglobin 31.9 pg (27.0-31.0); Mean Corpuscular Volume 97.3 fL (78.0-98.0); Mean Platelet Volume 7.4 fL (7.4-10.4); Platelet Count 179 thou/uL (130-400); Red Blood Cell (RBC) Count 4.47 mill/uL (4.20-5.40)
[2020-12-29 06:16] LABS: Anion Gap 12 mmol/L (10-20); BUN (Urea Nitrogen) 27 mg/dL (9.8-20.1); Calc. Creatinine Clearance 58 mL/min (70-130); Calcium 9.5 mg/dL (7.8-10.44); Carbon Dioxide 30 mmol/L (23-31); Chloride 99 mmol/L (98-107); Glucose 86 mg/dL (83-110); Potassium 4.3 mmol/L (3.5-5.1); Sodium 137 mmol/L (136-145)
[2020-12-29] MEDS: Aspirin Chewable 81 MG TAB PO SCH (08:42)
[2020-12-29] MEDS: Apixaban 5 MG TAB PO SCH (08:42)
[2020-12-29] MEDS: Zinc Sulfate 220 MG CAP PO SCH (08:42)
[2020-12-29] MEDS: Amiodarone 200 MG TAB PO SCH (08:43)
[2020-12-29] MEDS: Lisinopril 10 MG TAB PO SCH (08:43)
[2020-12-29 12:13] VITALS: TEMP 98
[2020-12-29 16:00] VITALS: BP 142/62
[2020-12-29 18:40] LABS: 24 Hr Creatinine 694.8 mg/24 hr (710-1650); Creatinine, Urine 46.32 mg/dL (47-110)
[2020-12-31 15:16] LABS: Renin Activity 0.203 ng/mL/hr (0.167-5.380)
[2021-01-02 07:17] LABS: Dopamine 67 pg/mL (0-48); Epinephrine Less than 15 pg/mL (0-62); Norepinephrine 962 pg/mL (0-874)
[2021-01-02 12:17] LABS: Dopamine 24H Ur 42 ug/24 hr (0-510); Dopamine,Ur 28 ug/L (Undefined); Epinephrine 24H Ur 5 ug/24 hr (0-20); Epinephrine,Ur 3 ug/L (Undefined); Norephinephrine 24H U 45 ug/24 hr (0-135); Norephinephrine,Ur 30 ug/L (Undefined)
[2021-01-02 16:14] LABS: Metanephrine,Ur 31 ug/L (Undefined); Metanephrines Total-24H 47 ug/24 hr (36-209); Normetanephrine,Ur 249 ug/L (Undefined); Normetanephrines-24H U 374 ug/24 hr (131-612)
[2021-01-02 17:38] LABS: Metanephrine,Plasma 16.6 pg/mL (0.0-88.0); Normetanephrine,Pl 112.7 pg/mL (0.0-191.8)
== END 2020-12-29 17:50 | disposition home or self-care (01) | DRG 291 ==
LOC: ERS 18:05 → 3SE 21:41
PROVIDERS: ADMIT Internal Medicine; ATTEND Hospitalist
DX: I11.0 Hypertensive heart disease with heart failure (principal); J96.01 Acute respiratory failure with hypoxia; I16.1 Hypertensive emergency; Z68.41 Body mass index [BMI] 40.0-44.9, adult; I50.33 Acute on chronic diastolic (congestive) heart failure; E11.9 Type 2 diabetes mellitus without complications; I25.10 Atherosclerotic heart disease of native coronary artery without angina pectoris; I16.0 Hypertensive urgency; K21.9 Gastro-esophageal reflux disease without esophagitis; E78.5 Hyperlipidemia, unspecified; E78.00 Pure hypercholesterolemia, unspecified; G47.33 Obstructive sleep apnea (adult) (pediatric); F32.9 Major depressive disorder, single episode, unspecified; I48.0 Paroxysmal atrial fibrillation; Z20.822 Contact with and (suspected) exposure to COVID-19; E66.01 Morbid (severe) obesity due to excess calories; F41.9 Anxiety disorder, unspecified; G40.909 Epilepsy, unspecified, not intractable, without status epilepticus; Z91.018 Allergy to other foods; Z79.899 Other long term (current) drug therapy; Z79.01 Long term (current) use of anticoagulants; Z95.5 Presence of coronary angioplasty implant and graft
CPT/HCPCS: 36415; 36416; 71045; 76770; 80048; 80053; 80069; 82088; 82384; 82570; 83690; 83835; 83880; 84244; 84484; 85025; 93005; 93010; 93306; 93975; 94640; 96374; J1940; J7620; U0002

== ENCOUNTER 2021-01-21 00:11 | Observation (INO) | payer MEDICARE ==
[2021-01-21] MEDS ORDERED: Aspirin Chewable 81 MG TAB ONE (00:41)
[2021-01-21 01:04] LABS: #Eosinphils 0.1 thou/uL (0.0-0.7); #Lymphocytes 1.2 thou/uL (1.20-3.40); #Monocytes 0.9 thou/uL (0.11-0.59); #Neutrophils 9.3 thou/uL (1.40-6.50); %Basophils 0.2 % (0.0-1.0); %Eosinophils 0.8 % (0.0-10.0); %Lymphocytes 10.4 % (21.0-51.0); %Monocytes 7.5 % (0.0-10.0); Hemoglobin 15.5 g/dL (12.0-16.0); Mean Corpuscular HGB CONC 33.8 g/dL (32.0-36.0); Mean Corpuscular Hemoglobin 33.1 pg (27.0-31.0); Mean Corpuscular Volume 97.8 fL (78.0-98.0); Mean Platelet Volume 7.1 fL (7.4-10.4); Platelet Count 171 thou/uL (130-400); RBC Distribution Width 13.1 % (11.5-14.5); Red Blood Cell (RBC) Count 4.69 mill/uL (4.20-5.40); White Blood Cell (WBC) Count 11.5 thou/uL (4.8-10.8)
[2021-01-21 02:44] LABS: ALT (SGPT) 47 U/L (8-55); AST (SGOT) 43 U/L (5-34); Albumin 3.6 g/dL (3.4-4.8); Alkaline Phosphatase 67 U/L (40-110); Anion Gap 15 mmol/L (10-20); BUN (Urea Nitrogen) 20 mg/dL (9.8-20.1); Bilirubin, Total 0.8 mg/dL (0.2-1.2); Calc. Creatinine Clearance 0 mL/min (70-130); Calcium 9.1 mg/dL (7.8-10.44); Carbon Dioxide 21 mmol/L (23-31); Chloride 106 mmol/L (98-107); Globulin 2.9 g/dL (2.4-3.5); Glucose 127 mg/dL (83-110); Potassium 4.2 mmol/L (3.5-5.1); Protein, Total 6.5 g/dL (5.8-8.1); Sodium 138 mmol/L (136-145)
[2021-01-21] MEDS ORDERED: Morphine 4 MG/ML VIAL ONE (03:39)
[2021-01-21 05:37] LABS: Troponin I Less than 0.010 ng/mL (< 0.028)
[2021-01-21 08:29] LABS: Troponin I Less than 0.010 ng/mL (< 0.028)
[2021-01-21] MEDS ORDERED: Iopamidol-370 76% 500 ML 1 ML ONE (09:07)
[2021-01-21 10:49] VITALS: BP 162/62; TEMP 98
[2021-01-21 12:38] LABS: SARS-CoV-2 PCR by NAA Not Detected (NotDetected)
== END 2021-01-21 11:53 | disposition home or self-care (01) ==
LOC: ERS 00:11 → ERHOLD 04:14
PROVIDERS: ADMIT Internal Medicine; ATTEND Nurse Practitioner Acute Care
DX: K95.09 Other complications of gastric band procedure (principal); I25.118 Atherosclerotic heart disease of native coronary artery with other forms of angina pectoris; I11.0 Hypertensive heart disease with heart failure; I50.30 Unspecified diastolic (congestive) heart failure; I48.20 Chronic atrial fibrillation, unspecified; E11.9 Type 2 diabetes mellitus without complications; G89.29 Other chronic pain; M54.9 Dorsalgia, unspecified; D72.829 Elevated white blood cell count, unspecified; E78.5 Hyperlipidemia, unspecified; K80.20 Calculus of gallbladder without cholecystitis without obstruction; E78.00 Pure hypercholesterolemia, unspecified; Z79.01 Long term (current) use of anticoagulants; Z79.82 Long term (current) use of aspirin; Z79.899 Other long term (current) drug therapy; Z91.018 Allergy to other foods; Z95.5 Presence of coronary angioplasty implant and graft; Z20.822 Contact with and (suspected) exposure to COVID-19; Y73.1 Therapeutic (nonsurgical) and rehabilitative gastroenterology and urology devices associated with adverse incidents
CPT/HCPCS: 71045; 71275; 80053; 83880; 84484 ×2; 85025; 93005; 96374; 99285; G0378; U0003; U0005; 36415; J2270; Q9967

== ENCOUNTER 2021-02-05 12:00 | Emergency (ER) | payer MEDICARE ==
[2021-02-05 12:40] LABS: #Eosinphils 0.2 thou/uL (0.0-0.7); #Lymphocytes 1.2 thou/uL (1.20-3.40); #Monocytes 0.6 thou/uL (0.11-0.59); %Basophils 0.4 % (0.0-1.0); %Eosinophils 2.9 % (0.0-10.0); %Lymphocytes 19.5 % (21.0-51.0); %Monocytes 10.4 % (0.0-10.0); %Neutrophils 66.8 % (42.0-75.0); Hemoglobin 14.9 g/dL (12.0-16.0); Mean Corpuscular HGB CONC 32.9 g/dL (32.0-36.0); Mean Corpuscular Hemoglobin 32.4 pg (27.0-31.0); Mean Corpuscular Volume 98.6 fL (78.0-98.0); Mean Platelet Volume 7.7 fL (7.4-10.4); Platelet Count 173 thou/uL (130-400); RBC Distribution Width 12.8 % (11.5-14.5); White Blood Cell (WBC) Count 5.9 thou/uL (4.8-10.8)
[2021-02-05 12:59] LABS: ALT (SGPT) 26 U/L (8-55); AST (SGOT) 27 U/L (5-34); Albumin 3.7 g/dL (3.4-4.8); Alkaline Phosphatase 63 U/L (40-110); Anion Gap 13 mmol/L (10-20); BUN (Urea Nitrogen) 26 mg/dL (9.8-20.1); Bilirubin, Total 0.7 mg/dL (0.2-1.2); Calc. Creatinine Clearance 0 mL/min (70-130); Calcium 9.4 mg/dL (7.8-10.44); Carbon Dioxide 27 mmol/L (23-31); Chloride 107 mmol/L (98-107); Globulin 2.9 g/dL (2.4-3.5); Glucose 92 mg/dL (83-110); Potassium 4.9 mmol/L (3.5-5.1); Protein, Total 6.6 g/dL (5.8-8.1); Sodium 142 mmol/L (136-145)
[2021-02-05] MEDS ORDERED: Acetaminophen 500 MG TAB ONE (13:20)
[2021-02-05] MEDS ORDERED: Magnesium 2 GM/50 ML BAG (IN WATER) ONE (14:35)
[2021-02-05 15:28] LABS: Bilirubin Negative (Negative); Blood, Urine Negative (Negative); Clarity Clear (Clear); Glucose, Urine (Dipstick) Normal (Negative); Ketone, Urine Negative (Negative); Leukocyte Negative Leu/uL (Negative); Nitrite Negative (Negative); Protein, Urine (Dipstick) Negative (Neg-Trace); Specific Gravity, Urine 1.018 (1.002-1.036); Urobilinogen Normal mg/dL (Less than 2)
== END 2021-02-05 18:08 | disposition home or self-care (01) ==
LOC: ERS 12:00
DX: R53.1 Weakness (principal); E11.9 Type 2 diabetes mellitus without complications; K21.9 Gastro-esophageal reflux disease without esophagitis; E78.5 Hyperlipidemia, unspecified; E78.00 Pure hypercholesterolemia, unspecified; I10 Essential (primary) hypertension; G47.33 Obstructive sleep apnea (adult) (pediatric); Z79.01 Long term (current) use of anticoagulants; Z79.899 Other long term (current) drug therapy; W19.XXXA Unspecified fall, initial encounter
CPT/HCPCS: 36415; 51701; 70450; 71045; 80053; 81003; 84484; 85025; 93005; J3475

== ENCOUNTER 2021-03-10 12:46 | Outpatient (CLI) | payer MEDICARE ==
[~2021-03-10 12:46] MED LIST changes: -Iopamidol 370 76% 100 ML VIAL ONE; +Iopamidol-370 76% 500 ML 1 ML ONE
== END 2021-03-10 12:47 | disposition home or self-care (01) ==
LOC: BICCT 12:46
PROVIDERS: ATTEND Internal Medicine Nephrology
DX: E26.9 Hyperaldosteronism, unspecified (principal); K80.20 Calculus of gallbladder without cholecystitis without obstruction
CPT/HCPCS: 74170

== ENCOUNTER 2021-04-03 16:11 | Emergency (ER) | payer MEDICARE ==
[2021-04-03 16:57] LABS: #Eosinphils 0.2 thou/uL (0.0-0.7); #Lymphocytes 1.1 thou/uL (1.20-3.40); #Monocytes 0.6 thou/uL (0.11-0.59); #Neutrophils 5.4 thou/uL (1.40-6.50); %Basophils 0.5 % (0.0-1.0); %Eosinophils 2.1 % (0.0-10.0); %Lymphocytes 15.7 % (21.0-51.0); %Monocytes 8.3 % (0.0-10.0); %Neutrophils 73.5 % (42.0-75.0); Mean Corpuscular Hemoglobin 33.6 pg (27.0-31.0); Mean Platelet Volume 7.2 fL (7.4-10.4); Platelet Count 150 thou/uL (130-400); RBC Distribution Width 12.9 % (11.5-14.5); Red Blood Cell (RBC) Count 4.47 mill/uL (4.20-5.40); White Blood Cell (WBC) Count 7.3 thou/uL (4.8-10.8)
[2021-04-03 17:27] LABS: ALT (SGPT) 24 U/L (8-55); AST (SGOT) 26 U/L (5-34); Albumin 3.5 g/dL (3.4-4.8); Alkaline Phosphatase 57 U/L (40-110); Anion Gap 12 mmol/L (10-20); BUN (Urea Nitrogen) 21 mg/dL (9.8-20.1); Bilirubin, Total 0.7 mg/dL (0.2-1.2); CK (CPK) 59 U/L (29-168); Calc. Creatinine Clearance 0 mL/min (70-130); Calcium 8.8 mg/dL (7.8-10.44); Carbon Dioxide 23 mmol/L (23-31); Chloride 108 mmol/L (98-107); Globulin 2.8 g/dL (2.4-3.5); Glucose 89 mg/dL (83-110); Potassium 4.5 mmol/L (3.5-5.1); Protein, Total 6.3 g/dL (5.8-8.1); Sodium 138 mmol/L (136-145)
== END 2021-04-03 18:43 | disposition home or self-care (01) ==
LOC: ERS 16:11
DX: M25.561 Pain in right knee (principal); E11.9 Type 2 diabetes mellitus without complications; K21.9 Gastro-esophageal reflux disease without esophagitis; E78.5 Hyperlipidemia, unspecified; I10 Essential (primary) hypertension; Z86.73 Personal history of transient ischemic attack (TIA), and cerebral infarction without residual deficits; Z79.899 Other long term (current) drug therapy; Z79.01 Long term (current) use of anticoagulants
CPT/HCPCS: 36415; 70450; 71045; 72125; 80053; 82550; 84484; 85025; 93005

== ENCOUNTER 2022-05-12 22:43 | Emergency (ER) | payer MEDICARE ==
[2022-05-12 23:22] LABS: #Eosinphils 0.1 thou/uL (0.0-0.7); #Lymphocytes 0.8 thou/uL (1.20-3.40); #Monocytes 0.9 thou/uL (0.11-0.59); #Neutrophils 10.3 thou/uL (1.40-6.50); %Eosinophils 0.7 % (0.0-10.0); %Lymphocytes 6.5 % (21.0-51.0); %Monocytes 7.4 % (0.0-10.0); %Neutrophils 85.3 % (42.0-75.0); Hemoglobin 13.5 g/dL (12.0-16.0); Mean Corpuscular HGB CONC 33.5 g/dL (32.0-36.0); Mean Corpuscular Hemoglobin 33.3 pg (27.0-31.0); Mean Corpuscular Volume 99.5 fl (78.0-98.0); Platelet Count 156 10x3/uL (130-400); RBC Distribution Width 12.5 % (11.5-14.5); Red Blood Cell (RBC) Count 4.04 mill/uL (4.20-5.40)
[2022-05-12 23:43] LABS: ALT (SGPT) 16 U/L (8-55); AST (SGOT) 18 U/L (5-34); Albumin 3.5 g/dL (3.4-4.8); Alkaline Phosphatase 57 U/L (40-110); Anion Gap 11 mmol/L (10-20); BUN (Urea Nitrogen) 19 mg/dL (9.8-20.1); Bilirubin, Total 0.9 mg/dL (0.2-1.2); Calc. Creatinine Clearance 0 mL/min (70-130); Calcium 9.4 mg/dL (7.8-10.44); Carbon Dioxide 24 mmol/L (23-31); Chloride 106 mmol/L (98-107); Estimated GFR 40; Globulin 2.9 g/dL (2.4-3.5); Glucose 123 mg/dL (83-110); Lipase 12 U/L (8-78); Potassium 5.2 mmol/L (3.5-5.1); Protein, Total 6.4 g/dL (5.8-8.1); Sodium 136 mmol/L (136-145)
[2022-05-13] MEDS ORDERED: Acetaminophen 325 MG TAB ONE (00:32)
[2022-05-13 05:19] LABS: Bilirubin Negative (Negative); Blood, Urine Negative (Negative); Clarity Clear (Clear); Glucose, Urine (Dipstick) Normal (Negative); Ketone, Urine Negative (Negative); Leukocyte Negative Leu/uL (Negative); Nitrite Negative (Negative); Protein, Urine (Dipstick) Negative (Neg-Trace); Specific Gravity, Urine 1.023 (1.002-1.036); Urobilinogen Normal mg/dL (Less than 2)
== END 2022-05-13 07:41 | disposition home or self-care (01) ==
LOC: ERS 22:43
DX: R10.9 Unspecified abdominal pain (principal); D72.829 Elevated white blood cell count, unspecified; E11.9 Type 2 diabetes mellitus without complications; K21.9 Gastro-esophageal reflux disease without esophagitis; E78.00 Pure hypercholesterolemia, unspecified; Z79.01 Long term (current) use of anticoagulants; Z79.899 Other long term (current) drug therapy
CPT/HCPCS: 36415; 74177; 80053; 81003; 83605; 83690; 84484; 85025; 93005; Q9967

== ENCOUNTER 2022-06-01 11:29 | Outpatient (CLI) | payer MEDICARE | END 2022-06-01 11:30 | disposition home or self-care (01) | LOC: SCSMRI 11:29 | PROVIDERS: ATTEND Psychiatry & Neurology Neurology | DX: G44.229 Chronic tension-type headache, not intractable (principal); D32.0 Benign neoplasm of cerebral meninges; I67.89 Other cerebrovascular disease | CPT/HCPCS: 70553 ==

== ENCOUNTER 2022-07-03 16:20 | Inpatient (IN) | payer MEDICARE ==
[2022-07-03 17:22] LABS: Actual Bicarbonate (HCO3v) 24 mEq/L (22-28); Base Excess -1.3 mEq/L (-2.0 to +3.0); Calcium, Ionized (venous) 1.12 mmol/L (1.16-1.32); Chloride (VBG) 103 mmol/L (98-106); Hemoglobin (Hb) 16.1 g/dL (11.7-16.1); Potassium (VBG) 4.96 mmol/L (3.70-5.30); pH (venous) 7.37 (7.32-7.43)
[2022-07-03 17:26] LABS: #Eosinphils 0.1 thou/uL (0.0-0.7); #Lymphocytes 0.6 thou/uL (1.20-3.40); #Monocytes 0.7 thou/uL (0.11-0.59); #Neutrophils 8.2 thou/uL (1.40-6.50); %Eosinophils 1.1 % (0.0-10.0); %Lymphocytes 6.1 % (21.0-51.0); %Monocytes 7.2 % (0.0-10.0); %Neutrophils 85.7 % (42.0-75.0); Hemoglobin 15.3 g/dL (12.0-16.0); Mean Corpuscular HGB CONC 33.2 g/dL (32.0-36.0); Mean Corpuscular Hemoglobin 33.6 pg (27.0-31.0); Mean Platelet Volume 7.7 fL (7.4-10.4); Platelet Count 125 10x3/uL (130-400); RBC Distribution Width 12.8 % (11.5-14.5); Red Blood Cell (RBC) Count 4.56 mill/uL (4.20-5.40); White Blood Cell (WBC) Count 9.6 10x3/uL (4.8-10.8)
[2022-07-03 17:38] LABS: Bacteria/HPF 3+ HPF (None Seen); Bilirubin Negative (Negative); Blood, Urine 1+ (Negative); Clarity Clear (Clear); Glucose, Urine (Dipstick) Normal (Negative); Ketone, Urine Negative (Negative); Leukocyte Negative Leu/uL (Negative); Nitrite Negative (Negative); Protein, Urine (Dipstick) Negative (Neg-Trace); RBC/HPF 0-3 HPF (0-3); Specific Gravity, Urine 1.018 (1.002-1.036); Squamous Epithelial 0-3 HPF (0-3); Urobilinogen Normal mg/dL (Less than 2); WBC/HPF 0-3 HPF (0-3)
[2022-07-03 17:48] LABS: ALT (SGPT) 20 U/L (8-55); AST (SGOT) 24 U/L (5-34); Albumin 3.8 g/dL (3.4-4.8); Alkaline Phosphatase 65 U/L (40-110); Anion Gap 12 mmol/L (10-20); BUN (Urea Nitrogen) 18 mg/dL (9.8-20.1); Calc. Creatinine Clearance 0 mL/min (70-130); Calcium 9.1 mg/dL (7.8-10.44); Carbon Dioxide 25 mmol/L (23-31); Chloride 103 mmol/L (98-107); Estimated GFR 54; Glucose 101 mg/dL (83-110); Potassium 4.9 mmol/L (3.5-5.1); Protein, Total 6.8 g/dL (5.8-8.1); Sodium 135 mmol/L (136-145)
[2022-07-03] MEDS ORDERED: cefTRIAXone\\ROCEPHIN 1 GM VIAL ONE (19:02)
[2022-07-03] MEDS ORDERED: Furosemide 20 MG/2 ML VIAL ONE (19:02)
[2022-07-03] MEDS ORDERED: Aspirin Chewable 81 MG TAB ONE (19:02)
[2022-07-04] MEDS ORDERED: Nitroglycerin 0.4 MG TAB (25 Tab Bottle) SL PRN (02:17)
[2022-07-04] MEDS ORDERED: Ondansetron PF 4 MG/2 ML Vial IVP PRN (02:17)
[2022-07-04] MEDS ORDERED: Ondansetron ODT 4 MG TAB PO PRN (02:17)
[2022-07-04] MEDS ORDERED: Acetaminophen 325 MG TAB PO PRN (02:17)
[2022-07-04] MEDS ORDERED: Acetaminophen 650 MG Suppository PR PRN (02:17)
[2022-07-04] MEDS ORDERED: Dextrose 50% Abboject 50 ML SYRINGE SLOW IVP PRN (03:21)
[2022-07-04] MEDS ORDERED: Dextrose 5% in Water 1,000 ML IV PRN (03:21)
[2022-07-04] MEDS ORDERED: HumaLOG 300 UNITS/3 ML VIAL SC PRN (03:21)
[2022-07-04 05:34] LABS: #Lymphocytes 0.6 thou/uL (1.20-3.40); #Monocytes 0.7 thou/uL (0.11-0.59); %Basophils 0.1 % (0.0-1.0); %Eosinophils 0.4 % (0.0-10.0); %Lymphocytes 8.9 % (21.0-51.0); %Monocytes 10.8 % (0.0-10.0); %Neutrophils 79.8 % (42.0-75.0); Hemoglobin 14.9 g/dL (12.0-16.0); Mean Corpuscular HGB CONC 33.1 g/dL (32.0-36.0); Mean Corpuscular Hemoglobin 33.6 pg (27.0-31.0); Mean Platelet Volume 7.7 fL (7.4-10.4); Platelet Count 108 10x3/uL (130-400); RBC Distribution Width 12.7 % (11.5-14.5); Red Blood Cell (RBC) Count 4.43 mill/uL (4.20-5.40); White Blood Cell (WBC) Count 6.2 10x3/uL (4.8-10.8)
[2022-07-04 05:52] LABS: Anion Gap 14 mmol/L (10-20); BUN (Urea Nitrogen) 18 mg/dL (9.8-20.1); Calc. Creatinine Clearance 69 mL/min (70-130); Calcium 8.9 mg/dL (7.8-10.44); Carbon Dioxide 21 mmol/L (23-31); Chloride 103 mmol/L (98-107); Estimated GFR 56; Glucose 79 mg/dL (83-110); Magnesium 1.8 mg/dL (1.6-2.6); Potassium 4.1 mmol/L (3.5-5.1); Sodium 134 mmol/L (136-145)
[2022-07-04] MEDS: Apixaban 5 MG TAB PO SCH ×2 (08:54→20:18)
[2022-07-04] MEDS: Furosemide 40 MG/4 ML VIAL SLOW IVP SCH (08:54)
[2022-07-04] MEDS: Aspirin Chewable 81 MG TAB PO SCH (08:54)
[2022-07-04] MEDS: Venlafaxine 75 MG TAB PO SCH ×2 (08:54→20:19)
[2022-07-04] MEDS ORDERED: Spironolactone 100 MG TAB PO SCH (09:00)
[2022-07-04] MEDS: Guaifenesin DM 100-10/5 ML UDCUP PO PRN ×2 (15:04→23:32)
[2022-07-04] MEDS ORDERED: Dexamethasone 4 mg/ml Vial SLOW IVP SCH (17:45)
[2022-07-04] MEDS ORDERED: REMDESIVIR 200 MG in Sodium Chloride 0.9% 250 ML 210 ML IV SCH (18:15)
[2022-07-04] MEDS ORDERED: Pharmacy to Dose REMDESIVIR IVPB PRN (18:18)
[2022-07-04] MEDS: Amitriptyline HCl 25 MG TAB PO SCH (20:18)
[2022-07-04] MEDS: cefTRIAXone\\ROCEPHIN 1 GM in Sodium Chloride 0.9% 100 ML IVPB SCH (21:57)
[2022-07-05 05:41] LABS: Troponin I Less than 0.010 ng/mL (< 0.028)
[2022-07-05 05:58] LABS: ALT (SGPT) 30 U/L (8-55); AST (SGOT) 36 U/L (5-34); Albumin 3.7 g/dL (3.4-4.8); Alkaline Phosphatase 59 U/L (40-110); Anion Gap 16 mmol/L (10-20); BUN (Urea Nitrogen) 33 mg/dL (9.8-20.1); Bilirubin, Total 0.4 mg/dL (0.2-1.2); Calc. Creatinine Clearance 42 mL/min (70-130); Calcium 9.4 mg/dL (7.8-10.44); Carbon Dioxide 25 mmol/L (23-31); Chloride 99 mmol/L (98-107); Estimated GFR 31; Globulin 3.4 g/dL (2.4-3.5); Glucose 147 mg/dL (83-110); Potassium 5.4 mmol/L (3.5-5.1); Protein, Total 7.1 g/dL (5.8-8.1); Sodium 135 mmol/L (136-145)
[2022-07-05] MEDS: Venlafaxine 75 MG TAB PO SCH (09:03)
[2022-07-05] MEDS: Rosuvastatin 20 MG TAB PO SCH (09:05)
[2022-07-05] MEDS: Dexamethasone 4 mg/ml Vial SLOW IVP SCH (09:05)
[2022-07-05] MEDS: Apixaban 5 MG TAB PO SCH ×2 (09:06→22:03)
[2022-07-05] MEDS: Aspirin Chewable 81 MG TAB PO SCH (09:06)
[2022-07-05] MEDS: Furosemide 40 MG/4 ML VIAL SLOW IVP SCH (09:06)
[2022-07-05] MEDS ORDERED: Polyethylene Glycol 3350 17 GM Packet PO PRN (13:55)
[2022-07-05] MEDS: REMDESIVIR 100 MG in Sodium Chloride 0.9% 250 ML 230 ML IV SCH (17:11)
[2022-07-05] MEDS: Amitriptyline HCl 25 MG TAB PO SCH (22:03)
[2022-07-06] MEDS: cefTRIAXone\\ROCEPHIN 1 GM in Sodium Chloride 0.9% 100 ML IVPB SCH ×2 (00:15→21:16)
[2022-07-06] MEDS: Venlafaxine 75 MG TAB PO SCH ×3 (00:15→21:17)
[2022-07-06 06:11] LABS: #Lymphocytes 0.7 thou/uL (1.20-3.40); #Monocytes 0.8 thou/uL (0.11-0.59); #Neutrophils 9.5 thou/uL (1.40-6.50); %Eosinophils 0.1 % (0.0-10.0); %Lymphocytes 6.6 % (21.0-51.0); %Monocytes 7.3 % (0.0-10.0); Hemoglobin 14.7 g/dL (12.0-16.0); Mean Corpuscular Hemoglobin 33.4 pg (27.0-31.0); Mean Platelet Volume 7.8 fL (7.4-10.4); Platelet Count 148 10x3/uL (130-400); RBC Distribution Width 12.7 % (11.5-14.5); Red Blood Cell (RBC) Count 4.38 mill/uL (4.20-5.40)
[2022-07-06 06:27] LABS: Phosphorus 4.8 mg/dL (2.3-4.7)
[2022-07-06 06:32] LABS: ALT (SGPT) 60 U/L (8-55); AST (SGOT) 66 U/L (5-34); Albumin 3.3 g/dL (3.4-4.8); Alkaline Phosphatase 52 U/L (40-110); Anion Gap 18 mmol/L (10-20); BUN (Urea Nitrogen) 46 mg/dL (9.8-20.1); Bilirubin, Total 0.2 mg/dL (0.2-1.2); Calc. Creatinine Clearance 48 mL/min (70-130); Calcium 9.3 mg/dL (7.8-10.44); Carbon Dioxide 21 mmol/L (23-31); Chloride 100 mmol/L (98-107); Estimated GFR 38; Globulin 3.1 g/dL (2.4-3.5); Glucose 122 mg/dL (83-110); Magnesium 2.5 mg/dL (1.6-2.6); Potassium 4.8 mmol/L (3.5-5.1); Protein, Total 6.4 g/dL (5.8-8.1); Sodium 134 mmol/L (136-145)
[2022-07-06 07:23] VITALS: BMI 41.4
[2022-07-06] MEDS: Rosuvastatin 20 MG TAB PO SCH (08:19)
[2022-07-06] MEDS: Aspirin Chewable 81 MG TAB PO SCH (08:19)
[2022-07-06] MEDS: Apixaban 5 MG TAB PO SCH ×2 (08:20→21:16)
[2022-07-06] MEDS: Dexamethasone 4 mg/ml Vial SLOW IVP SCH (08:22)
[2022-07-06] MEDS: Guaifenesin DM 100-10/5 ML UDCUP PO PRN (08:26)
[2022-07-06] MEDS: REMDESIVIR 100 MG in Sodium Chloride 0.9% 250 ML 230 ML IV SCH (18:15)
[2022-07-06] MEDS: HumaLOG 300 UNITS/3 ML VIAL SC PRN (18:16)
[2022-07-06] MEDS: Amitriptyline HCl 25 MG TAB PO SCH (21:16)
[2022-07-07] MEDS: Dexamethasone 4 mg/ml Vial SLOW IVP SCH (08:47)
[2022-07-07] MEDS: Aspirin Chewable 81 MG TAB PO SCH (08:48)
[2022-07-07] MEDS: Rosuvastatin 20 MG TAB PO SCH (08:49)
[2022-07-07] MEDS: Apixaban 5 MG TAB PO SCH ×2 (08:49→20:25)
[2022-07-07] MEDS: Venlafaxine 75 MG TAB PO SCH ×2 (08:49→20:25)
[2022-07-07] MEDS: Guaifenesin DM 100-10/5 ML UDCUP PO PRN ×2 (09:00→20:38)
[2022-07-07 10:57] LABS: #Lymphocytes 0.6 thou/uL (1.20-3.40); #Monocytes 0.4 thou/uL (0.11-0.59); #Neutrophils 8.6 thou/uL (1.40-6.50); %Basophils 0.1 % (0.0-1.0); %Monocytes 4.1 % (0.0-10.0); %Neutrophils 89.8 % (42.0-75.0); Hemoglobin 15.1 g/dL (12.0-16.0); Mean Corpuscular Hemoglobin 32.5 pg (27.0-31.0); Mean Platelet Volume 7.7 fL (7.4-10.4); Platelet Count 140 10x3/uL (130-400); RBC Distribution Width 12.9 % (11.5-14.5); Red Blood Cell (RBC) Count 4.64 mill/uL (4.20-5.40); White Blood Cell (WBC) Count 9.6 10x3/uL (4.8-10.8)
[2022-07-07 11:18] LABS: ALT (SGPT) 62 U/L (8-55); AST (SGOT) 53 U/L (5-34); Albumin 3.2 g/dL (3.4-4.8); Alkaline Phosphatase 56 U/L (40-110); Anion Gap 15 mmol/L (10-20); BUN (Urea Nitrogen) 48 mg/dL (9.8-20.1); Bilirubin, Total 0.2 mg/dL (0.2-1.2); Calc. Creatinine Clearance 55 mL/min (70-130); Carbon Dioxide 21 mmol/L (23-31); Chloride 102 mmol/L (98-107); Estimated GFR 43; Globulin 2.9 g/dL (2.4-3.5); Glucose 112 mg/dL (83-110); Potassium 4.7 mmol/L (3.5-5.1); Protein, Total 6.1 g/dL (5.8-8.1); Sodium 133 mmol/L (136-145)
[2022-07-07] MEDS: REMDESIVIR 100 MG in Sodium Chloride 0.9% 250 ML 230 ML IV SCH (18:15)
[2022-07-07] MEDS: HumaLOG 300 UNITS/3 ML VIAL SC PRN (18:18)
[2022-07-07] MEDS: Amitriptyline HCl 25 MG TAB PO SCH (20:25)
[2022-07-07] MEDS: cefTRIAXone\\ROCEPHIN 1 GM in Sodium Chloride 0.9% 100 ML IVPB SCH (20:25)
[2022-07-08 05:33] LABS: #Lymphocytes 0.7 thou/uL (1.20-3.40); #Monocytes 0.6 thou/uL (0.11-0.59); #Neutrophils 7.4 thou/uL (1.40-6.50); %Basophils 0.4 % (0.0-1.0); %Eosinophils 0.1 % (0.0-10.0); %Neutrophils 84.5 % (42.0-75.0); Hemoglobin 14.7 g/dL (12.0-16.0); Mean Corpuscular HGB CONC 32.5 g/dL (32.0-36.0); Mean Corpuscular Hemoglobin 32.9 pg (27.0-31.0); Mean Platelet Volume 7.7 fL (7.4-10.4); Platelet Count 146 10x3/uL (130-400); Red Blood Cell (RBC) Count 4.48 mill/uL (4.20-5.40); White Blood Cell (WBC) Count 8.8 10x3/uL (4.8-10.8)
[2022-07-08 06:00] LABS: ALT (SGPT) 53 U/L (8-55); AST (SGOT) 39 U/L (5-34); Albumin 3.1 g/dL (3.4-4.8); Alkaline Phosphatase 54 U/L (40-110); Anion Gap 12 mmol/L (10-20); BUN (Urea Nitrogen) 43 mg/dL (9.8-20.1); Bilirubin, Total 0.2 mg/dL (0.2-1.2); Calc. Creatinine Clearance 55 mL/min (70-130); Calcium 8.7 mg/dL (7.8-10.44); Carbon Dioxide 22 mmol/L (23-31); Chloride 104 mmol/L (98-107); Estimated GFR 42; Globulin 2.8 g/dL (2.4-3.5); Glucose 115 mg/dL (83-110); Potassium 5.5 mmol/L (3.5-5.1); Protein, Total 5.9 g/dL (5.8-8.1); Sodium 132 mmol/L (136-145)
[2022-07-08] MEDS ORDERED: LOKELMA 10 GM PACKET PO SCH (07:45)
[2022-07-08] MEDS: Venlafaxine 75 MG TAB PO SCH ×2 (09:04→20:33)
[2022-07-08] MEDS: Aspirin Chewable 81 MG TAB PO SCH (09:04)
[2022-07-08] MEDS: Rosuvastatin 20 MG TAB PO SCH (09:04)
[2022-07-08] MEDS: Dexamethasone 4 mg/ml Vial SLOW IVP SCH (09:05)
[2022-07-08] MEDS: Apixaban 5 MG TAB PO SCH ×2 (09:05→20:32)
[2022-07-08] MEDS: REMDESIVIR 100 MG in Sodium Chloride 0.9% 250 ML 230 ML IV SCH (17:47)
[2022-07-08 18:31] LABS: Anion Gap 14 mmol/L (10-20); BUN (Urea Nitrogen) 47 mg/dL (9.8-20.1); Calc. Creatinine Clearance 54 mL/min (70-130); Carbon Dioxide 24 mmol/L (23-31); Chloride 101 mmol/L (98-107); Estimated GFR 40; Glucose 123 mg/dL (83-110); Potassium 5.5 mmol/L (3.5-5.1); Sodium 133 mmol/L (136-145)
[2022-07-08] MEDS: cefTRIAXone\\ROCEPHIN 1 GM in Sodium Chloride 0.9% 100 ML IVPB SCH (20:31)
[2022-07-08] MEDS: Amitriptyline HCl 25 MG TAB PO SCH (20:32)
[2022-07-08] MEDS ORDERED: Sodium Bicarbonate Tab 325 MG TAB PO SCH (21:00)
[2022-07-08] MEDS: guaiFENesin ER 600 MG TAB PO SCH (22:06)
[2022-07-09 05:33] LABS: #Lymphocytes 0.8 thou/uL (1.20-3.40); #Monocytes 0.8 thou/uL (0.11-0.59); #Neutrophils 7.5 thou/uL (1.40-6.50); %Eosinophils 0.1 % (0.0-10.0); %Lymphocytes 8.3 % (21.0-51.0); %Monocytes 8.6 % (0.0-10.0); Hemoglobin 15.3 g/dL (12.0-16.0); Mean Corpuscular HGB CONC 32.9 g/dL (32.0-36.0); Mean Corpuscular Hemoglobin 33.3 pg (27.0-31.0); Mean Platelet Volume 7.7 fL (7.4-10.4); Platelet Count 139 10x3/uL (130-400); RBC Distribution Width 12.9 % (11.5-14.5)
[2022-07-09 06:05] LABS: Anion Gap 13 mmol/L (10-20); BUN (Urea Nitrogen) 43 mg/dL (9.8-20.1); Calc. Creatinine Clearance 63 mL/min (70-130); Calcium 8.8 mg/dL (7.8-10.44); Carbon Dioxide 22 mmol/L (23-31); Chloride 103 mmol/L (98-107); Estimated GFR 49; Glucose 107 mg/dL (83-110); Magnesium 2.7 mg/dL (1.6-2.6); Phosphorus 3.4 mg/dL (2.3-4.7); Potassium 4.8 mmol/L (3.5-5.1); Sodium 133 mmol/L (136-145)
[2022-07-09] MEDS: guaiFENesin ER 600 MG TAB PO SCH ×2 (09:12→22:23)
[2022-07-09] MEDS: Aspirin Chewable 81 MG TAB PO SCH (09:12)
[2022-07-09] MEDS: Apixaban 5 MG TAB PO SCH ×2 (09:13→22:23)
[2022-07-09] MEDS: Rosuvastatin 20 MG TAB PO SCH (09:13)
[2022-07-09] MEDS: Sodium Bicarbonate Tab 325 MG TAB PO SCH ×3 (09:13→22:22)
[2022-07-09] MEDS: Dexamethasone 4 mg/ml Vial SLOW IVP SCH (09:13)
[2022-07-09] MEDS: Venlafaxine 75 MG TAB PO SCH ×2 (09:14→22:23)
[2022-07-09] MEDS: HumaLOG 300 UNITS/3 ML VIAL SC PRN (17:00)
[2022-07-09] MEDS ORDERED: Senokot S 8.6-50 MG TAB PO SCH (21:00)
[2022-07-09] MEDS: cefTRIAXone\\ROCEPHIN 1 GM in Sodium Chloride 0.9% 100 ML IVPB SCH (22:21)
[2022-07-09] MEDS: Amitriptyline HCl 25 MG TAB PO SCH (22:23)
[2022-07-09] MEDS: Senokot S 8.6-50 MG TAB PO SCH (22:23)
[2022-07-10 06:03] LABS: #Lymphocytes 0.9 thou/uL (1.20-3.40); #Monocytes 0.8 thou/uL (0.11-0.59); #Neutrophils 9.5 thou/uL (1.40-6.50); %Basophils 0.1 % (0.0-1.0); %Eosinophils 0.1 % (0.0-10.0); %Lymphocytes 7.9 % (21.0-51.0); %Neutrophils 84.9 % (42.0-75.0); Mean Corpuscular HGB CONC 32.6 g/dL (32.0-36.0); Mean Corpuscular Hemoglobin 32.9 pg (27.0-31.0); Mean Platelet Volume 7.4 fL (7.4-10.4); Platelet Count 160 10x3/uL (130-400); RBC Distribution Width 12.8 % (11.5-14.5); Red Blood Cell (RBC) Count 4.87 mill/uL (4.20-5.40); White Blood Cell (WBC) Count 11.1 10x3/uL (4.8-10.8)
[2022-07-10 06:52] LABS: Anion Gap 11 mmol/L (10-20); BUN (Urea Nitrogen) 39 mg/dL (9.8-20.1); Calc. Creatinine Clearance 70 mL/min (70-130); Calcium 9.3 mg/dL (7.8-10.44); Carbon Dioxide 25 mmol/L (23-31); Chloride 101 mmol/L (98-107); Estimated GFR 58; Glucose 107 mg/dL (83-110); Potassium 5.1 mmol/L (3.5-5.1); Sodium 132 mmol/L (136-145)
[2022-07-10] MEDS: Aspirin Chewable 81 MG TAB PO SCH (08:54)
[2022-07-10] MEDS: Sodium Bicarbonate Tab 325 MG TAB PO SCH ×3 (08:54→20:23)
[2022-07-10] MEDS: Senokot S 8.6-50 MG TAB PO SCH ×2 (08:54→20:22)
[2022-07-10] MEDS: Apixaban 5 MG TAB PO SCH ×2 (08:54→20:23)
[2022-07-10] MEDS: guaiFENesin ER 600 MG TAB PO SCH ×2 (08:55→20:24)
[2022-07-10] MEDS: Rosuvastatin 20 MG TAB PO SCH (08:55)
[2022-07-10] MEDS: Dexamethasone 4 mg/ml Vial SLOW IVP SCH (08:55)
[2022-07-10] MEDS: Venlafaxine 75 MG TAB PO SCH ×2 (08:55→20:24)
[2022-07-10] MEDS: Amitriptyline HCl 25 MG TAB PO SCH (20:23)
[2022-07-11] MEDS: Sodium Bicarbonate Tab 325 MG TAB PO SCH ×3 (10:00→21:22)
[2022-07-11] MEDS: Senokot S 8.6-50 MG TAB PO SCH ×2 (10:00→21:23)
[2022-07-11] MEDS: Aspirin Chewable 81 MG TAB PO SCH (10:01)
[2022-07-11] MEDS: Apixaban 5 MG TAB PO SCH ×2 (10:01→21:22)
[2022-07-11] MEDS: Venlafaxine 75 MG TAB PO SCH ×2 (10:02→21:23)
[2022-07-11] MEDS: guaiFENesin ER 600 MG TAB PO SCH ×2 (10:02→21:24)
[2022-07-11] MEDS: Rosuvastatin 20 MG TAB PO SCH (10:02)
[2022-07-11] MEDS: Dexamethasone 4 mg/ml Vial SLOW IVP SCH (10:03)
[2022-07-11 11:36] LABS: #Lymphocytes 0.9 thou/uL (1.20-3.40); #Neutrophils 11.8 thou/uL (1.40-6.50); %Eosinophils 0.1 % (0.0-10.0); %Lymphocytes 6.2 % (21.0-51.0); %Monocytes 7.1 % (0.0-10.0); %Neutrophils 86.6 % (42.0-75.0); Hemoglobin 16.8 g/dL (12.0-16.0); Mean Corpuscular HGB CONC 33.3 g/dL (32.0-36.0); Mean Corpuscular Hemoglobin 33.5 pg (27.0-31.0); Mean Platelet Volume 7.4 fL (7.4-10.4); Platelet Count 206 10x3/uL (130-400); RBC Distribution Width 12.9 % (11.5-14.5); Red Blood Cell (RBC) Count 5.01 mill/uL (4.20-5.40); White Blood Cell (WBC) Count 13.7 10x3/uL (4.8-10.8)
[2022-07-11 11:56] LABS: Anion Gap 11 mmol/L (10-20); BUN (Urea Nitrogen) 41 mg/dL (9.8-20.1); Calc. Creatinine Clearance 55 mL/min (70-130); Carbon Dioxide 25 mmol/L (23-31); Chloride 99 mmol/L (98-107); Estimated GFR 43; Glucose 111 mg/dL (83-110); Potassium 4.6 mmol/L (3.5-5.1); Sodium 130 mmol/L (136-145)
[2022-07-11] MEDS ORDERED: Sodium Chloride 0.9% 500 ML IV SCH (14:30)
[2022-07-11] MEDS: Amitriptyline HCl 25 MG TAB PO SCH (21:23)
[2022-07-12 06:31] LABS: #Lymphocytes 0.9 thou/uL (1.20-3.40); #Neutrophils 8.4 thou/uL (1.40-6.50); %Eosinophils 0.1 % (0.0-10.0); %Lymphocytes 8.6 % (21.0-51.0); %Monocytes 9.9 % (0.0-10.0); %Neutrophils 81.4 % (42.0-75.0); Hemoglobin 15.8 g/dL (12.0-16.0); Mean Corpuscular HGB CONC 32.3 g/dL (32.0-36.0); Mean Platelet Volume 7.3 fL (7.4-10.4); Platelet Count 158 10x3/uL (130-400); RBC Distribution Width 12.8 % (11.5-14.5); Red Blood Cell (RBC) Count 4.79 mill/uL (4.20-5.40); White Blood Cell (WBC) Count 10.3 10x3/uL (4.8-10.8)
[2022-07-12 06:55] LABS: Anion Gap 15 mmol/L (10-20); BUN (Urea Nitrogen) 33 mg/dL (9.8-20.1); Calc. Creatinine Clearance 70 mL/min (70-130); Calcium 8.9 mg/dL (7.8-10.44); Carbon Dioxide 22 mmol/L (23-31); Chloride 100 mmol/L (98-107); Estimated GFR 58; Glucose 92 mg/dL (83-110); Potassium 5.1 mmol/L (3.5-5.1); Sodium 132 mmol/L (136-145)
[2022-07-12] MEDS: Sodium Bicarbonate Tab 325 MG TAB PO SCH ×3 (09:18→21:22)
[2022-07-12] MEDS: Senokot S 8.6-50 MG TAB PO SCH ×2 (09:19→21:22)
[2022-07-12] MEDS: Dexamethasone 4 mg/ml Vial SLOW IVP SCH (09:20)
[2022-07-12] MEDS: Aspirin Chewable 81 MG TAB PO SCH (09:20)
[2022-07-12] MEDS: Apixaban 5 MG TAB PO SCH ×2 (09:20→21:23)
[2022-07-12] MEDS: guaiFENesin ER 600 MG TAB PO SCH ×2 (09:20→21:22)
[2022-07-12] MEDS: Venlafaxine 75 MG TAB PO SCH ×2 (09:20→21:21)
[2022-07-12] MEDS ORDERED: Polyethylene Glycol 3350 17 GM Packet PO SCH (21:00)
[2022-07-12] MEDS: Folic Acid/Vit B Comp W-C PO SCH (21:22)
[2022-07-12] MEDS: Rosuvastatin 20 MG TAB PO SCH (21:22)
[2022-07-12] MEDS: Amitriptyline HCl 25 MG TAB PO SCH (21:22)
[2022-07-12] MEDS: Cyanocobalamin (Vitamin B-12) 1,000 MCG TAB PO SCH (21:23)
[2022-07-13 06:22] LABS: Anion Gap 13 mmol/L (10-20); BUN (Urea Nitrogen) 42 mg/dL (9.8-20.1); BUN/Creatinine Ratio 34.15; Calc. Creatinine Clearance 59 mL/min (70-130); Carbon Dioxide 20 mmol/L (23-31); Chloride 102 mmol/L (98-107); Estimated GFR 45; Glucose 102 mg/dL (83-110); Phosphorus 3.4 mg/dL (2.3-4.7); Potassium 4.9 mmol/L (3.5-5.1); Sodium 130 mmol/L (136-145)
[2022-07-13] MEDS: guaiFENesin ER 600 MG TAB PO SCH ×2 (08:39→21:54)
[2022-07-13] MEDS: Sodium Bicarbonate Tab 325 MG TAB PO SCH ×3 (08:39→21:54)
[2022-07-13] MEDS: Dexamethasone 4 MG TAB PO SCH (08:40)
[2022-07-13] MEDS: Apixaban 5 MG TAB PO SCH ×2 (08:40→21:54)
[2022-07-13] MEDS: Aspirin Chewable 81 MG TAB PO SCH (08:40)
[2022-07-13] MEDS: Senokot S 8.6-50 MG TAB PO SCH ×2 (08:40→21:53)
[2022-07-13] MEDS: Multivit, Therapeutic 1 TAB PO SCH (08:40)
[2022-07-13] MEDS: Venlafaxine 75 MG TAB PO SCH ×2 (08:41→21:54)
[2022-07-13] MEDS: Folic Acid/Vit B Comp W-C PO SCH (21:53)
[2022-07-13] MEDS: Amitriptyline HCl 25 MG TAB PO SCH (21:54)
[2022-07-13] MEDS: Bisacodyl 10 MG SUPP PR SCH ×2 (21:54→22:05)
[2022-07-13] MEDS: Polyethylene Glycol 3350 17 GM Packet PO SCH ×2 (21:54→22:06)
[2022-07-13] MEDS: Cyanocobalamin (Vitamin B-12) 1,000 MCG TAB PO SCH (21:54)
[2022-07-13] MEDS: Rosuvastatin 20 MG TAB PO SCH (21:54)
[2022-07-14 06:44] LABS: Albumin 3.6 g/dL (3.4-4.8); Anion Gap 14 mmol/L (10-20); BUN (Urea Nitrogen) 39 mg/dL (9.8-20.1); BUN/Creatinine Ratio 33.05; Calc. Creatinine Clearance 59 mL/min (70-130); Carbon Dioxide 22 mmol/L (23-31); Chloride 98 mmol/L (98-107); Estimated GFR 47; Glucose 82 mg/dL (83-110); Phosphorus 3.3 mg/dL (2.3-4.7); Potassium 5.1 mmol/L (3.5-5.1); Sodium 129 mmol/L (136-145)
[2022-07-14] MEDS: Polyethylene Glycol 3350 17 GM Packet PO SCH (09:31)
[2022-07-14] MEDS: Multivit, Therapeutic 1 TAB PO SCH (09:31)
[2022-07-14] MEDS: Dexamethasone 4 MG TAB PO SCH (09:31)
[2022-07-14] MEDS: Aspirin Chewable 81 MG TAB PO SCH (09:32)
[2022-07-14] MEDS: Venlafaxine 75 MG TAB PO SCH ×2 (09:32→22:03)
[2022-07-14] MEDS: guaiFENesin ER 600 MG TAB PO SCH ×2 (09:32→22:04)
[2022-07-14] MEDS: Senokot S 8.6-50 MG TAB PO SCH ×2 (09:32→22:03)
[2022-07-14] MEDS: Apixaban 5 MG TAB PO SCH ×2 (09:32→22:04)
[2022-07-14] MEDS: Sodium Bicarbonate Tab 325 MG TAB PO SCH ×3 (09:39→22:04)
[2022-07-14] MEDS: Folic Acid/Vit B Comp W-C PO SCH (22:03)
[2022-07-14] MEDS: Cyanocobalamin (Vitamin B-12) 1,000 MCG TAB PO SCH (22:04)
[2022-07-14] MEDS: Rosuvastatin 20 MG TAB PO SCH (22:04)
[2022-07-15] MEDS: Bisacodyl 10 MG SUPP PR SCH ×2 (01:56→21:46)
[2022-07-15] MEDS: Polyethylene Glycol 3350 17 GM Packet PO SCH ×3 (01:56→21:46)
[2022-07-15 06:16] LABS: #Lymphocytes 0.8 thou/uL (1.20-3.40); #Monocytes 1.2 thou/uL (0.11-0.59); #Neutrophils 10.5 thou/uL (1.40-6.50); %Basophils 0.1 % (0.0-1.0); %Eosinophils 0.1 % (0.0-10.0); %Lymphocytes 6.7 % (21.0-51.0); %Monocytes 9.4 % (0.0-10.0); %Neutrophils 83.8 % (42.0-75.0); Hemoglobin 15.2 g/dL (12.0-16.0); Mean Corpuscular HGB CONC 32.9 g/dL (32.0-36.0); Mean Corpuscular Hemoglobin 32.7 pg (27.0-31.0); Mean Corpuscular Volume 99.2 fl (78.0-98.0); Mean Platelet Volume 7.4 fL (7.4-10.4); Platelet Count 163 10x3/uL (130-400); RBC Distribution Width 12.6 % (11.5-14.5); Red Blood Cell (RBC) Count 4.64 mill/uL (4.20-5.40); White Blood Cell (WBC) Count 12.5 10x3/uL (4.8-10.8)
[2022-07-15 06:36] LABS: Anion Gap 12 mmol/L (10-20); BUN (Urea Nitrogen) 35 mg/dL (9.8-20.1); Calc. Creatinine Clearance 58 mL/min (70-130); Calcium 8.8 mg/dL (7.8-10.44); Carbon Dioxide 25 mmol/L (23-31); Chloride 99 mmol/L (98-107); Estimated GFR 47; Glucose 75 mg/dL (83-110); Potassium 4.8 mmol/L (3.5-5.1); Sodium 131 mmol/L (136-145)
[2022-07-15] MEDS: Aspirin Chewable 81 MG TAB PO SCH (09:15)
[2022-07-15] MEDS: Multivit, Therapeutic 1 TAB PO SCH (09:15)
[2022-07-15] MEDS: Venlafaxine 75 MG TAB PO SCH ×2 (09:15→22:52)
[2022-07-15] MEDS: guaiFENesin ER 600 MG TAB PO SCH ×2 (09:15→21:44)
[2022-07-15] MEDS: Sodium Bicarbonate Tab 325 MG TAB PO SCH ×3 (09:15→21:45)
[2022-07-15] MEDS: Apixaban 5 MG TAB PO SCH ×2 (09:15→21:44)
[2022-07-15] MEDS: Senokot S 8.6-50 MG TAB PO SCH ×2 (09:16→21:45)
[2022-07-15] MEDS: Cyanocobalamin (Vitamin B-12) 1,000 MCG TAB PO SCH (21:44)
[2022-07-15] MEDS: Folic Acid/Vit B Comp W-C PO SCH (21:45)
[2022-07-15] MEDS: Rosuvastatin 20 MG TAB PO SCH (21:45)
[2022-07-16 05:51] LABS: Actual Bicarbonate (HCO3v) 26 mEq/L (22-28); Calcium, Ionized (venous) 1.11 mmol/L (1.16-1.32); Chloride (VBG) 96 mmol/L (98-106); Hemoglobin (Hb) 16.9 g/dL (11.7-16.1); Potassium (VBG) 4.94 mmol/L (3.70-5.30); Sodium 130.5 mmol/L (133-146); pH (venous) 7.37 (7.32-7.43)
[2022-07-16 08:53] LABS: Albumin 3.2 g/dL (3.4-4.8); Anion Gap 13 mmol/L (10-20); BUN (Urea Nitrogen) 39 mg/dL (9.8-20.1); Calc. Creatinine Clearance 53 mL/min (70-130); Calcium 8.9 mg/dL (7.8-10.44); Carbon Dioxide 25 mmol/L (23-31); Chloride 97 mmol/L (98-107); Estimated GFR 42; Glucose 63 mg/dL (83-110); Magnesium 2.5 mg/dL (1.6-2.6); Phosphorus 3.3 mg/dL (2.3-4.7); Sodium 130 mmol/L (136-145)
[2022-07-16] MEDS: Polyethylene Glycol 3350 17 GM Packet PO SCH ×2 (08:54→20:09)
[2022-07-16] MEDS: Aspirin Chewable 81 MG TAB PO SCH (08:55)
[2022-07-16] MEDS: Venlafaxine 75 MG TAB PO SCH (08:55)
[2022-07-16] MEDS: Multivit, Therapeutic 1 TAB PO SCH (08:55)
[2022-07-16] MEDS: Senokot S 8.6-50 MG TAB PO SCH ×2 (08:55→20:08)
[2022-07-16] MEDS: guaiFENesin ER 600 MG TAB PO SCH ×2 (08:55→20:09)
[2022-07-16] MEDS: Sodium Bicarbonate Tab 325 MG TAB PO SCH ×3 (08:55→20:09)
[2022-07-16] MEDS: Apixaban 5 MG TAB PO SCH ×2 (08:55→20:09)
[2022-07-16] MEDS: Sodium Chloride 0.9% 1,000 ML IV SCH ×2 (10:53→20:07)
[2022-07-16] MEDS: Rosuvastatin 20 MG TAB PO SCH (20:08)
[2022-07-16] MEDS: Cyanocobalamin (Vitamin B-12) 1,000 MCG TAB PO SCH (20:08)
[2022-07-16] MEDS: Folic Acid/Vit B Comp W-C PO SCH (20:09)
[2022-07-16] MEDS: Bisacodyl 10 MG SUPP PR SCH (20:09)
[2022-07-17] MEDS: HumaLOG 300 UNITS/3 ML VIAL SC PRN (05:45)
[2022-07-17 06:17] LABS: #Eosinphils 0.1 thou/uL (0.0-0.7); #Lymphocytes 1.2 thou/uL (1.20-3.40); #Monocytes 1.4 thou/uL (0.11-0.59); #Neutrophils 10.1 thou/uL (1.40-6.50); %Basophils 0.3 % (0.0-1.0); %Eosinophils 1.1 % (0.0-10.0); %Lymphocytes 9.5 % (21.0-51.0); %Monocytes 11.1 % (0.0-10.0); %Neutrophils 77.9 % (42.0-75.0); Hemoglobin 14.7 g/dL (12.0-16.0); Mean Corpuscular HGB CONC 32.1 g/dL (32.0-36.0); Mean Corpuscular Hemoglobin 32.4 pg (27.0-31.0); Mean Platelet Volume 7.3 fL (7.4-10.4); Platelet Count 124 10x3/uL (130-400); RBC Distribution Width 12.7 % (11.5-14.5); Red Blood Cell (RBC) Count 4.53 mill/uL (4.20-5.40); White Blood Cell (WBC) Count 12.9 10x3/uL (4.8-10.8)
[2022-07-17 06:35] LABS: Albumin 2.9 g/dL (3.4-4.8); Anion Gap 12 mmol/L (10-20); BUN (Urea Nitrogen) 29 mg/dL (9.8-20.1); BUN/Creatinine Ratio 30.53; Calc. Creatinine Clearance 73 mL/min (70-130); Calcium 7.9 mg/dL (7.8-10.44); Carbon Dioxide 19 mmol/L (23-31); Chloride 103 mmol/L (98-107); Estimated GFR 61; Glucose 62 mg/dL (83-110); Magnesium 2.2 mg/dL (1.6-2.6); Phosphorus 2.7 mg/dL (2.3-4.7); Potassium 4.6 mmol/L (3.5-5.1); Sodium 129 mmol/L (136-145)
[2022-07-17] MEDS: Senokot S 8.6-50 MG TAB PO SCH ×2 (09:11→20:54)
[2022-07-17] MEDS: Apixaban 5 MG TAB PO SCH ×2 (09:12→20:52)
[2022-07-17] MEDS: Aspirin Chewable 81 MG TAB PO SCH (09:12)
[2022-07-17] MEDS: guaiFENesin ER 600 MG TAB PO SCH ×2 (09:12→20:53)
[2022-07-17] MEDS: Multivit, Therapeutic 1 TAB PO SCH (09:13)
[2022-07-17] MEDS: Sodium Bicarbonate Tab 325 MG TAB PO SCH ×3 (09:15→20:54)
[2022-07-17] MEDS: Polyethylene Glycol 3350 17 GM Packet PO SCH ×2 (09:27→20:55)
[2022-07-17] MEDS: Cyanocobalamin (Vitamin B-12) 1,000 MCG TAB PO SCH (20:52)
[2022-07-17] MEDS: Folic Acid/Vit B Comp W-C PO SCH (20:53)
[2022-07-17] MEDS: Rosuvastatin 20 MG TAB PO SCH (20:54)
[2022-07-17] MEDS: Bisacodyl 10 MG SUPP PR SCH (20:55)
[2022-07-18 06:06] LABS: Anion Gap 11 mmol/L (10-20); BUN (Urea Nitrogen) 24 mg/dL (9.8-20.1); Calc. Creatinine Clearance 70 mL/min (70-130); Calcium 8.4 mg/dL (7.8-10.44); Carbon Dioxide 22 mmol/L (23-31); Chloride 103 mmol/L (98-107); Estimated GFR 58; Glucose 63 mg/dL (83-110); Potassium 4.6 mmol/L (3.5-5.1); Sodium 131 mmol/L (136-145)
[2022-07-18] MEDS: Aspirin Chewable 81 MG TAB PO SCH (08:46)
[2022-07-18] MEDS: Sodium Bicarbonate Tab 325 MG TAB PO SCH ×3 (08:46→20:24)
[2022-07-18] MEDS: Senokot S 8.6-50 MG TAB PO SCH ×2 (08:46→20:26)
[2022-07-18] MEDS: Apixaban 5 MG TAB PO SCH ×2 (08:47→20:24)
[2022-07-18] MEDS: guaiFENesin ER 600 MG TAB PO SCH ×2 (08:47→20:25)
[2022-07-18] MEDS: Multivit, Therapeutic 1 TAB PO SCH (08:47)
[2022-07-18] MEDS: Polyethylene Glycol 3350 17 GM Packet PO SCH ×2 (08:52→20:29)
[2022-07-18] MEDS: Nystatin 500,000 UNITS/5 ML UDCUP SSW SCH ×3 (14:38→20:28)
[2022-07-18] MEDS: Folic Acid/Vit B Comp W-C PO SCH (20:24)
[2022-07-18] MEDS: Rosuvastatin 20 MG TAB PO SCH (20:25)
[2022-07-18] MEDS: Bisacodyl 10 MG SUPP PR SCH (20:26)
[2022-07-18] MEDS: Cyanocobalamin (Vitamin B-12) 1,000 MCG TAB PO SCH (20:28)
[2022-07-19 05:51] LABS: #Eosinphils 0.1 thou/uL (0.0-0.7); #Lymphocytes 1.1 thou/uL (1.20-3.40); #Monocytes 1.1 thou/uL (0.11-0.59); #Neutrophils 5.8 thou/uL (1.40-6.50); %Basophils 0.1 % (0.0-1.0); %Eosinophils 1.7 % (0.0-10.0); %Monocytes 13.6 % (0.0-10.0); %Neutrophils 71.6 % (42.0-75.0); Hemoglobin 13.8 g/dL (12.0-16.0); Mean Corpuscular HGB CONC 32.6 g/dL (32.0-36.0); Mean Corpuscular Hemoglobin 32.7 pg (27.0-31.0); Mean Platelet Volume 7.7 fL (7.4-10.4); Platelet Count 116 10x3/uL (130-400); RBC Distribution Width 12.5 % (11.5-14.5); Red Blood Cell (RBC) Count 4.23 mill/uL (4.20-5.40); White Blood Cell (WBC) Count 8.1 10x3/uL (4.8-10.8)
[2022-07-19 06:01] LABS: Anion Gap 13 mmol/L (10-20); BUN (Urea Nitrogen) 22 mg/dL (9.8-20.1); Calc. Creatinine Clearance 74 mL/min (70-130); Calcium 8.3 mg/dL (7.8-10.44); Carbon Dioxide 22 mmol/L (23-31); Chloride 101 mmol/L (98-107); Estimated GFR 62; Glucose 70 mg/dL (83-110); Potassium 4.5 mmol/L (3.5-5.1); Sodium 131 mmol/L (136-145)
[2022-07-19 07:40] LABS: Albumin 2.9 g/dL (3.4-4.8); Anion Gap 13 mmol/L (10-20); BUN (Urea Nitrogen) 22 mg/dL (9.8-20.1); BUN/Creatinine Ratio 23.66; Calc. Creatinine Clearance 75 mL/min (70-130); Calcium 8.5 mg/dL (7.8-10.44); Carbon Dioxide 21 mmol/L (23-31); Chloride 101 mmol/L (98-107); Estimated GFR 63; Glucose 68 mg/dL (83-110); Phosphorus 2.4 mg/dL (2.3-4.7); Potassium 4.5 mmol/L (3.5-5.1); Sodium 130 mmol/L (136-145)
[2022-07-19] MEDS: Sodium Bicarbonate Tab 325 MG TAB PO SCH ×2 (09:27→16:41)
[2022-07-19] MEDS: Albumin 25% 25 GM/100 ML BOT IVPB SCH ×2 (09:27→15:03)
[2022-07-19] MEDS: Multivit, Therapeutic 1 TAB PO SCH (09:28)
[2022-07-19] MEDS: guaiFENesin ER 600 MG TAB PO SCH (09:28)
[2022-07-19] MEDS: Aspirin Chewable 81 MG TAB PO SCH (09:28)
[2022-07-19] MEDS: Nystatin 500,000 UNITS/5 ML UDCUP SSW SCH ×2 (09:28→13:37)
[2022-07-19] MEDS: Apixaban 5 MG TAB PO SCH (09:29)
[2022-07-19] MEDS: Polyethylene Glycol 3350 17 GM Packet PO SCH (09:29)
[2022-07-19] MEDS: Senokot S 8.6-50 MG TAB PO SCH (09:29)
[2022-07-19 16:06] VITALS: TEMP 97.7
[2022-07-19 16:25] VITALS: BP 130/67
== END 2022-07-19 16:08 | DRG 177 ==
LOC: ERS 16:20 → NEURO 18:53 → OBSVTOIN 07-04 17:39
PROVIDERS: ADMIT Internal Medicine; ATTEND Internal Medicine
PROC: XW033E5 Introduction of Remdesivir Anti-infective into Peripheral Vein, Percutaneous Approach, New Technology Group 5 (ICD-10-PCS; principal; 2022-07-04)
PROC: 3E0333Z Introduction of Anti-inflammatory into Peripheral Vein, Percutaneous Approach (ICD-10-PCS; 2022-07-04)
PROC: 8E0ZXY6 Isolation (ICD-10-PCS; 2022-07-04)
DX: U07.1 COVID-19 (principal); I50.33 Acute on chronic diastolic (congestive) heart failure; J96.01 Acute respiratory failure with hypoxia; J12.82 Pneumonia due to coronavirus disease 2019; E87.1 Hypo-osmolality and hyponatremia; Z68.41 Body mass index [BMI] 40.0-44.9, adult; E87.20 Acidosis, unspecified; N17.9 Acute kidney failure, unspecified; N39.0 Urinary tract infection, site not specified; B37.0 Candidal stomatitis; K21.9 Gastro-esophageal reflux disease without esophagitis; I25.10 Atherosclerotic heart disease of native coronary artery without angina pectoris; I34.0 Nonrheumatic mitral (valve) insufficiency; E78.00 Pure hypercholesterolemia, unspecified; E66.01 Morbid (severe) obesity due to excess calories; G47.33 Obstructive sleep apnea (adult) (pediatric); F32.A Depression, unspecified; I48.0 Paroxysmal atrial fibrillation; D32.9 Benign neoplasm of meninges, unspecified; E87.5 Hyperkalemia; I15.2 Hypertension secondary to endocrine disorders; E26.9 Hyperaldosteronism, unspecified; G93.89 Other specified disorders of brain; N18.30 Chronic kidney disease, stage 3 unspecified; B96.1 Klebsiella pneumoniae [K. pneumoniae] as the cause of diseases classified elsewhere; E11.22 Type 2 diabetes mellitus with diabetic chronic kidney disease; E11.649 Type 2 diabetes mellitus with hypoglycemia without coma; G25.3 Myoclonus; I95.1 Orthostatic hypotension; Z79.01 Long term (current) use of anticoagulants; Z79.899 Other long term (current) drug therapy; Z99.89 Dependence on other enabling machines and devices; Z95.5 Presence of coronary angioplasty implant and graft
CPT/HCPCS: 36415; 36416; 70450; 71045; 74018; 76770; 80048; 80053; 80069; 81003; 81015; 82533; 82550; 82805; 83605; 83735; 83880; 83930; 83935; 84100; 84145; 84484; 85025; 87040; 87077; 87086; 87186; 93005; 93306; 93798; 94760; 95712; 95819; 95957; 96365; 96375; 96376; G0378; J0248; J0696; J1100; J1815; J1940; J3490; J7030; J7050; J8540; P9047; U0003; U0005

== ENCOUNTER 2022-12-24 20:52 | Inpatient (IN) | payer MEDICARE ==
[2022-12-24 22:26] LABS: #Eosinphils 0.1 thou/uL (0.0-0.7); #Monocytes 1.5 thou/uL (0.11-0.59); #Neutrophils 5.9 thou/uL (1.40-6.50); %Basophils 0.4 % (0.0-1.0); %Eosinophils 0.8 % (0.0-10.0); %Lymphocytes 11.2 % (21.0-51.0); %Monocytes 17.9 % (0.0-10.0); Hematocrit 40.4 % (36.0-47.0); Hemoglobin 13.3 g/dL (12.0-16.0); Mean Corpuscular HGB CONC 32.9 g/dL (32.0-36.0); Mean Corpuscular Hemoglobin 32.8 pg (27.0-31.0); Mean Corpuscular Volume 99.5 fl (78.0-98.0); Mean Platelet Volume 9.2 fL (7.4-10.4); Platelet Count 128 10x3/uL (130-400); RBC Distribution Width 13.4 % (11.5-14.5); Red Blood Cell (RBC) Count 4.06 mill/uL (4.20-5.40); White Blood Cell (WBC) Count 8.5 10x3/uL (4.8-10.8)
[2022-12-24 22:36] LABS: INR-International Normal Ratio 1.4; PTT 24.5 sec (22.9-36.1); Prothrombin Time 18.1 sec (12.0-14.7)
[2022-12-24 22:51] LABS: ALT (SGPT) 16 U/L (8-55); AST (SGOT) 21 U/L (5-34); Albumin 3.6 g/dL (3.4-4.8); Alkaline Phosphatase 63 U/L (40-110); Anion Gap 15 mmol/L (10-20); BUN (Urea Nitrogen) 25 mg/dL (9.8-20.1); Bilirubin, Total 0.9 mg/dL (0.2-1.2); Calc. Creatinine Clearance 0 mL/min (70-130); Carbon Dioxide 22 mmol/L (23-31); Chloride 105 mmol/L (98-107); Estimated GFR 45; Glucose 103 mg/dL (83-110); Potassium 4.7 mmol/L (3.5-5.1); Protein, Total 6.6 g/dL (5.8-8.1); Sodium 137 mmol/L (136-145)
[2022-12-24 22:57] LABS: Troponin I 0.524 ng/mL (< 0.028)
[2022-12-25 01:01] LABS: Troponin I 0.443 ng/mL (< 0.028)
[2022-12-25] MEDS ORDERED: Ondansetron ODT 4 MG TAB PO PRN (02:02)
[2022-12-25] MEDS ORDERED: Acetaminophen 650 MG Suppository PR PRN (02:02)
[2022-12-25] MEDS ORDERED: Acetaminophen 325 MG TAB PO PRN (02:02)
[2022-12-25] MEDS ORDERED: Ondansetron PF 4 MG/2 ML Vial IVP PRN (02:02)
[2022-12-25] MEDS ORDERED: diphenhydrAMINE 25 MG CAP ONE (02:25)
[2022-12-25] MEDS ORDERED: Metoclopramide HCl 10 MG/2 ML VIAL ONE (02:25)
[2022-12-25] MEDS ORDERED: Acetaminophen 500 MG TAB ONE (02:25)
[2022-12-25] MEDS ORDERED: Nitroglycerin 0.4 MG TAB (25 Tab Bottle) SL PRN (07:25)
[2022-12-25 08:55] LABS: #Eosinphils 0.1 thou/uL (0.0-0.7); #Monocytes 1.1 thou/uL (0.11-0.59); #Neutrophils 4.7 thou/uL (1.40-6.50); %Basophils 0.4 % (0.0-1.0); %Lymphocytes 14.6 % (21.0-51.0); %Monocytes 16.3 % (0.0-10.0); Hemoglobin 13.1 g/dL (12.0-16.0); Mean Corpuscular Hemoglobin 32.5 pg (27.0-31.0); Mean Corpuscular Volume 101.7 fl (78.0-98.0); Mean Platelet Volume 9.6 fL (7.4-10.4); Platelet Count 130 10x3/uL (130-400); RBC Distribution Width 13.5 % (11.5-14.5); Red Blood Cell (RBC) Count 4.03 mill/uL (4.20-5.40); White Blood Cell (WBC) Count 6.9 10x3/uL (4.8-10.8)
[2022-12-25 09:20] LABS: Anion Gap 15 mmol/L (10-20); BUN (Urea Nitrogen) 24 mg/dL (9.8-20.1); Calc. Creatinine Clearance 0 mL/min (70-130); Calcium 9.9 mg/dL (7.8-10.44); Carbon Dioxide 20 mmol/L (23-31); Chloride 105 mmol/L (98-107); Estimated GFR 62; Glucose 83 mg/dL (83-110); Potassium 4.5 mmol/L (3.5-5.1); Sodium 135 mmol/L (136-145)
[2022-12-25] MEDS: Amiodarone 200 MG TAB PO SCH (09:24)
[2022-12-25] MEDS: Apixaban 5 MG TAB PO SCH ×2 (09:24→20:07)
[2022-12-25] MEDS: Venlafaxine 75 MG TAB PO SCH (09:24)
[2022-12-25 09:29] LABS: Critical Call Chem Troponin I RESULT DECREASING; Troponin I 0.394 ng/mL (< 0.028)
[2022-12-25 13:08] VITALS: BMI 38.5
[2022-12-25] MEDS ORDERED: Meclizine HCl 25 MG TAB PO PRN (17:06)
[2022-12-25] MEDS: Rosuvastatin 20 MG TAB PO SCH (20:07)
[2022-12-26] MEDS: Amiodarone 200 MG TAB PO SCH (09:06)
[2022-12-26] MEDS: Venlafaxine 75 MG TAB PO SCH (09:07)
[2022-12-26] MEDS: Apixaban 5 MG TAB PO SCH ×2 (09:07→20:36)
[2022-12-26] MEDS: Spironolactone 100 MG TAB PO SCH (09:07)
[2022-12-26] MEDS: Aspirin Chewable 81 MG TAB PO SCH (09:07)
[2022-12-26] MEDS: Rosuvastatin 20 MG TAB PO SCH (20:36)
[2022-12-27] MEDS: Aspirin Chewable 81 MG TAB PO SCH (09:38)
[2022-12-27] MEDS: Spironolactone 100 MG TAB PO SCH (09:38)
[2022-12-27] MEDS: Amiodarone 200 MG TAB PO SCH (09:38)
[2022-12-27] MEDS: Apixaban 5 MG TAB PO SCH ×2 (09:38→21:08)
[2022-12-27] MEDS: Venlafaxine 75 MG TAB PO SCH (09:38)
[2022-12-27] MEDS: Rosuvastatin 20 MG TAB PO SCH (21:08)
[2022-12-28] MEDS: Amiodarone 200 MG TAB PO SCH (09:53)
[2022-12-28] MEDS: Apixaban 5 MG TAB PO SCH (09:53)
[2022-12-28] MEDS: Venlafaxine 75 MG TAB PO SCH (09:53)
[2022-12-28] MEDS: Aspirin Chewable 81 MG TAB PO SCH (09:53)
[2022-12-28 12:06] VITALS: BP 143/73; TEMP 97.8
== END 2022-12-28 15:30 | disposition home health service (06) | DRG 604 ==
LOC: ERS 20:52 → 2NO 12-25 01:56 → OBSVTOIN 12-27 15:18
PROVIDERS: ADMIT Student in an Organized Health Care Education/Training Program; ATTEND Family Medicine
DX: S00.03XA Contusion of scalp, initial encounter (principal); I21.A1 Myocardial infarction type 2; S06.9X9A Unspecified intracranial injury with loss of consciousness of unspecified duration, initial encounter; I25.10 Atherosclerotic heart disease of native coronary artery without angina pectoris; K21.9 Gastro-esophageal reflux disease without esophagitis; E78.5 Hyperlipidemia, unspecified; D32.0 Benign neoplasm of cerebral meninges; N18.9 Chronic kidney disease, unspecified; R77.8 Other specified abnormalities of plasma proteins; I35.0 Nonrheumatic aortic (valve) stenosis; I48.0 Paroxysmal atrial fibrillation; R53.81 Other malaise; E11.22 Type 2 diabetes mellitus with diabetic chronic kidney disease; E66.9 Obesity, unspecified; I13.10 Hypertensive heart and chronic kidney disease without heart failure, with stage 1 through stage 4 chronic kidney disease, or unspecified chronic kidney disease; G47.33 Obstructive sleep apnea (adult) (pediatric); W19.XXXA Unspecified fall, initial encounter; Z91.018 Allergy to other foods; Z79.82 Long term (current) use of aspirin; Z79.899 Other long term (current) drug therapy; Z98.890 Other specified postprocedural states; Z95.2 Presence of prosthetic heart valve
CPT/HCPCS: 36415; 70450; 72125; 80048; 80053; 84484; 85025; 85610; 85730; 93005; 96365; G0378; J2765; Q0162

== ENCOUNTER 2023-05-23 13:56 | Emergency (ER) | payer MEDICARE ==
[2023-05-23] MEDS ORDERED: Bacitracin 1 PK ONE (17:52)
[2023-05-23] MEDS ORDERED: hydrALAZINE 10 MG TAB ONE (17:54)
[2023-05-23 18:23] LABS: #Eosinphils 0.1 thou/uL (0.0-0.7); #Monocytes 0.6 thou/uL (0.11-0.59); #Neutrophils 4.3 thou/uL (1.40-6.50); %Basophils 0.5 % (0.0-1.0); %Eosinophils 1.6 % (0.0-10.0); %Monocytes 9.7 % (0.0-10.0); %Neutrophils 68.7 % (42.0-75.0); Hemoglobin 15.4 g/dL (12.0-16.0); Mean Corpuscular HGB CONC 31.4 g/dL (32.0-36.0); Mean Corpuscular Hemoglobin 30.1 pg (27.0-31.0); Mean Corpuscular Volume 95.7 fl (78.0-98.0); Mean Platelet Volume 9.7 fL (7.4-10.4); Platelet Count 139 10x3/uL (130-400); RBC Distribution Width 14.7 % (11.5-14.5); Red Blood Cell (RBC) Count 5.12 mill/uL (4.20-5.40); White Blood Cell (WBC) Count 6.2 10x3/uL (4.8-10.8)
[2023-05-23 18:40] LABS: ALT (SGPT) 66 U/L (8-55); AST (SGOT) 66 U/L (5-34); Albumin 3.9 g/dL (3.4-4.8); Alkaline Phosphatase 80 U/L (40-110); Anion Gap 13 mmol/L (10-20); BUN (Urea Nitrogen) 21 mg/dL (9.8-20.1); Bilirubin, Total 0.7 mg/dL (0.2-1.2); Calc. Creatinine Clearance 0 mL/min (70-130); Calcium 9.2 mg/dL (7.8-10.44); Carbon Dioxide 23 mmol/L (23-31); Chloride 106 mmol/L (98-107); Estimated GFR 63; Glucose 88 mg/dL (83-110); Magnesium 2.1 mg/dL (1.6-2.6); Potassium 4.4 mmol/L (3.5-5.1); Protein, Total 6.9 g/dL (5.8-8.1); Sodium 138 mmol/L (136-145)
[2023-05-23 18:44] LABS: Troponin I 0.012 ng/mL (< 0.028)
[2023-05-23] MEDS ORDERED: cloNIDine 0.1 MG TAB ONE (20:01)
[2023-05-23 20:30] LABS: Bacteria/HPF 3+ HPF (None Seen); Bilirubin Negative (Negative); Blood, Urine Negative (Negative); CAUTI Indications for Culture Dysuria,urgency,freq; Clarity Turbid (Clear); Glucose, Urine (Dipstick) Normal (Negative); Ketone, Urine Negative (Negative); Leukocyte 75 Leu/uL (Negative); Nitrite Negative (Negative); Protein, Urine (Dipstick) Negative (Neg-Trace); RBC/HPF 0-3 HPF (0-3); Specific Gravity, Urine 1.015 (1.002-1.036); Squamous Epithelial 0-3 HPF (0-3); Urobilinogen Normal mg/dL (Less than 2)
[2023-05-23 20:33] LABS: Urine Culture Reflex No No
== END 2023-05-23 22:28 | disposition home or self-care (01) ==
LOC: ERS 13:56
DX: I10 Essential (primary) hypertension (principal); S51.811A Laceration without foreign body of right forearm, initial encounter; K21.9 Gastro-esophageal reflux disease without esophagitis; E78.00 Pure hypercholesterolemia, unspecified; Z79.899 Other long term (current) drug therapy; X58.XXXA Exposure to other specified factors, initial encounter
CPT/HCPCS: 70450; 71045; 80053; 81001; 83735; 84484; 85025; 93005

== ENCOUNTER → 2024-03-28 | Outpatient (CLI) | payer MEDICARE | LOC: CT 07:32 | PROVIDERS: ATTEND Family Medicine | DX: R10.30 Lower abdominal pain, unspecified (principal); I25.10 Atherosclerotic heart disease of native coronary artery without angina pectoris; K57.30 Diverticulosis of large intestine without perforation or abscess without bleeding; J98.4 Other disorders of lung | CPT/HCPCS: 74177 ==

== ENCOUNTER 2025-02-02 23:55 | Observation (INO) | payer MEDICARE ==
[2025-02-03 00:53] LABS: ALT (SGPT) 18 U/L (Less than 34); AST (SGOT) 26 U/L (11-34); Albumin 3.1 g/dL (3.1-4.5); Alkaline Phosphatase 94 U/L (40-110); Anion Gap 12 mmol/L (10-20); BUN (Urea Nitrogen) 25 mg/dL (9.8-20.1); Bilirubin, Total 0.4 mg/dL (0.3-1.2); Calc. Creatinine Clearance 0 mL/min (70-130); Calcium 8.8 mg/dL (7.8-10.44); Carbon Dioxide 23 mmol/L (23-31); Chloride 113 mmol/L (98-107); Globulin 2.8 g/dL (2.4-3.5); Glucose 108 mg/dL (83-110); Potassium 4.0 mmol/L (3.5-5.1); Sodium 144 mmol/L (136-145)
[2025-02-03 01:02] LABS: #Basophils Less than 0.03 10x3/uL (0.0-0.2); #Eosinophils 0.23 10x3/uL (0.0-0.7); #Monocytes 0.77 10x3/uL (0.11-0.59); #Neutrophils 3.62 10x3/uL (1.40-6.50); %Basophils 0.3 % (0.0-1.0); %Eosinophils 3.5 % (0.0-10.0); %Lymphocytes 28.2 % (21.0-51.0); %Monocytes 11.9 % (0.0-10.0); %Neutrophils 55.8 % (42.0-75.0); Hematocrit 43.8 % (36.0-47.0); Hemoglobin 14.7 g/dL (12.0-16.0); Mean Corpuscular Hemoglobin 33.0 pg (27.0-31.0); Mean Corpuscular Volume 98.2 fL (78.0-98.0); Platelet Count 106 10x3/uL (130-400); Red Blood Cell (RBC) Count 4.46 mill/uL (4.20-5.40); White Blood Cell (WBC) Count 6.49 10x3/uL (4.8-10.8)
[2025-02-03] MEDS ORDERED: Senokot S 8.6-50 MG TAB PO PRN (03:06)
[2025-02-03] MEDS ORDERED: Ondansetron PF 4 MG/2 ML Vial IVP PRN (03:06)
[2025-02-03] MEDS ORDERED: Melatonin 3 MG TAB PO PRN (03:06)
[2025-02-03] MEDS ORDERED: Calcium Carbonate 500 MG ChewTAB PO PRN (03:06)
[2025-02-03 03:14] VITALS: BMI 38.2
[2025-02-03] MEDS ORDERED: Electrolyte Replacement Protocol 1 EACH FS PRN (03:15)
[2025-02-03] MEDS ORDERED: hydrALAZINE 20 MG/ML VIAL SLOW IVP PRN (03:20)
[2025-02-03] MEDS: Enoxaparin 80 MG (0.8 mL) SYRINGE SC SCH (04:01)
[2025-02-03] MEDS: Losartan 25 MG TAB PO SCH (04:01)
[2025-02-03 04:10] LABS: ALT (SGPT) 16 U/L (Less than 34); AST (SGOT) 21 U/L (11-34); Albumin 3.0 g/dL (3.1-4.5); Alkaline Phosphatase 85 U/L (40-110); Anion Gap 15 mmol/L (10-20); BUN (Urea Nitrogen) 25 mg/dL (9.8-20.1); Bilirubin, Total 0.5 mg/dL (0.3-1.2); Calc. Creatinine Clearance 0 mL/min (70-130); Calcium 8.8 mg/dL (7.8-10.44); Carbon Dioxide 22 mmol/L (23-31); Cardiac Risk 2.2 (Less than 4.5); Chloride 112 mmol/L (98-107); Cholesterol 140 mg/dl (< 200 Desired); Globulin 2.6 g/dL (2.4-3.5); Glucose 105 mg/dL (83-110); HDL Cholesterol 63 mg/dL (>60 Neg Risk); LDL Cholesterol, Calculated 67 mg/dL; Potassium 4.7 mmol/L (3.5-5.1); Sodium 144 mmol/L (136-145); Triglycerides 48 mg/dL (Less than 150)
[2025-02-03 04:17] LABS: #Basophils Less than 0.03 10x3/uL (0.0-0.2); #Eosinophils 0.16 10x3/uL (0.0-0.7); #Monocytes 0.66 10x3/uL (0.11-0.59); #Neutrophils 3.76 10x3/uL (1.40-6.50); %Basophils 0.4 % (0.0-1.0); %Eosinophils 2.9 % (0.0-10.0); %Lymphocytes 16.9 % (21.0-51.0); %Monocytes 11.9 % (0.0-10.0); %Neutrophils 67.5 % (42.0-75.0); Hematocrit 45.8 % (36.0-47.0); Hemoglobin 14.2 g/dL (12.0-16.0); Mean Corpuscular Hemoglobin 31.8 pg (27.0-31.0); Mean Corpuscular Volume 102.5 fL (78.0-98.0); Platelet Count 94 10x3/uL (130-400); Red Blood Cell (RBC) Count 4.47 mill/uL (4.20-5.40); White Blood Cell (WBC) Count 5.56 10x3/uL (4.8-10.8)
[2025-02-03] MEDS ORDERED: Amiodarone 200 MG TAB PO SCH (09:00)
[2025-02-03] MEDS ORDERED: Metoprolol Succinate XL 100 MG ER.TAB PO SCH (09:00)
[2025-02-03] MEDS: Spironolactone 25 MG TAB PO SCH (09:03)
[2025-02-03] MEDS: Amiodarone 200 MG TAB PO SCH (09:04)
[2025-02-03] MEDS: Aspirin Chewable 81 MG TAB PO SCH (09:04)
[2025-02-03] MEDS: Isosorbide Mononitrate 30 MG ER.TAB.S PO SCH (09:09)
[2025-02-03] MEDS: Nitroglycerin 0.4 MG TAB (25 Tab Bottle) SL PRN (17:23)
[2025-02-03] MEDS: Acetaminophen 325 MG TAB PO PRN (17:49)
[2025-02-04] MEDS: Colestipol 1 GM TAB PO SCH (08:20)
[2025-02-04] MEDS: Enoxaparin 100 MG (1 mL) SYRINGE SC SCH (16:02)
[2025-02-04 19:55] VITALS: BP 144/76; TEMP 97.6
== END 2025-02-04 20:02 | disposition home or self-care (01) ==
LOC: ERS 23:55 → OBS 02-03 02:03
PROVIDERS: ADMIT Internal Medicine; ATTEND Internal Medicine
PROC: B24BZZZ Ultrasonography of Heart with Aorta (ICD-10-PCS; principal; 2025-02-03)
DX: R07.2 Precordial pain (principal); I48.0 Paroxysmal atrial fibrillation; I11.0 Hypertensive heart disease with heart failure; I50.9 Heart failure, unspecified; E78.5 Hyperlipidemia, unspecified; Z95.5 Presence of coronary angioplasty implant and graft; Z90.49 Acquired absence of other specified parts of digestive tract; Z91.018 Allergy to other foods; Z79.01 Long term (current) use of anticoagulants; Z79.82 Long term (current) use of aspirin; Z79.899 Other long term (current) drug therapy
CPT/HCPCS: 71045; 78452; 80061; 82962; 83036; 84484 ×2; 93005; 93017; 93306; 96372 ×2; 99285; A9502; G0378 ×3; J1650 ×3; J2785 ×2; J7042; 36415; 36416; 80053; 84443; 85025

== ENCOUNTER 2025-04-25 22:08 | Emergency (ER) | payer MEDICARE ==
[2025-04-25] MEDS ORDERED: Nitroglycerin 2% Ointment 1 INCH/1 GM Packet ONE (22:32)
[2025-04-25] MEDS ORDERED: Furosemide 40 MG (4 mL) VIAL ONE (22:32)
[2025-04-25] MEDS ORDERED: Aspirin Chewable 81 MG TAB ONE (22:33)
[2025-04-25 22:58] LABS: #Basophils 0.03 10x3/uL (0.0-0.2); #Eosinophils 0.24 10x3/uL (0.0-0.7); #Monocytes 0.88 10x3/uL (0.11-0.59); #Neutrophils 5.79 10x3/uL (1.40-6.50); %Basophils 0.4 % (0.0-1.0); %Eosinophils 3.0 % (0.0-10.0); %Lymphocytes 14.2 % (21.0-51.0); %Monocytes 10.8 % (0.0-10.0); %Neutrophils 71.2 % (42.0-75.0); Hematocrit 42.6 % (36.0-47.0); Hemoglobin 13.6 g/dL (12.0-16.0); Mean Corpuscular Hemoglobin 31.9 pg (27.0-31.0); Mean Corpuscular Volume 99.8 fL (78.0-98.0); Platelet Count 115 10x3/uL (130-400); Red Blood Cell (RBC) Count 4.27 mill/uL (4.20-5.40); White Blood Cell (WBC) Count 8.12 10x3/uL (4.8-10.8)
[2025-04-25 23:20] LABS: Burr Cells SLIGHT = 2-5 cells HPF (0-1); Platelet Adequacy Comment Platelets Decreased
[2025-04-25 23:49] LABS: Bacteria/HPF None Seen HPF (None Seen); CAUTI Indications for Culture Dysuria,urgency,freq; Glucose, Urine (Dipstick) Normal (Negative); Leukocyte Negative Leu/uL (Negative); Protein, Urine (Dipstick) Negative (Neg-Trace); RBC/HPF 0-3 HPF (0-3); Specific Gravity, Urine 1.008 (1.002-1.036); WBC/HPF None Seen HPF (0-3)
[2025-04-25 23:51] LABS: Urine Culture Reflex No No
[2025-04-26 00:28] LABS: ALT (SGPT) 14 U/L (Less than 34); AST (SGOT) 20 U/L (11-34); Albumin 3.3 g/dL (3.1-4.5); Alkaline Phosphatase 73 U/L (40-110); Anion Gap 12 mmol/L (10-20); BUN (Urea Nitrogen) 24 mg/dL (9.8-20.1); Bilirubin, Total 0.6 mg/dL (0.3-1.2); Calc. Creatinine Clearance 0 mL/min (70-130); Calcium 9.0 mg/dL (7.8-10.44); Carbon Dioxide 20 mmol/L (23-31); Chloride 113 mmol/L (98-107); Globulin 2.7 g/dL (2.4-3.5); Glucose 110 mg/dL (83-110); Potassium 4.0 mmol/L (3.5-5.1); Sodium 141 mmol/L (136-145)
== END 2025-04-26 02:17 | disposition home or self-care (01) ==
LOC: ERS 22:08
DX: I11.0 Hypertensive heart disease with heart failure (principal); I50.9 Heart failure, unspecified; E78.5 Hyperlipidemia, unspecified; Z79.01 Long term (current) use of anticoagulants; Z79.899 Other long term (current) drug therapy
CPT/HCPCS: 71045; 80053; 81001; 83880; 84484; 85025; 87428; 93005; J1940; 36415; 96374